=== PATIENT | female | born 1935 | race Caucasian/White ===

== ENCOUNTER 2017-07-15 13:31 | Observation (INO) ==
--- NOTE | 2017-07-15 14:47 | Emergency Department Note ---
Disposition Clinical Impression: Numbness and tingling Disposition: Admitted As Inpatient Condition: Good Time of Disposition: 18:59 Neuro HPI - General Chief Complaint: ED Neuro Symptoms/Deficit Stated Complaint: NUMBNESS Time Seen by Provider: 07/15/17 13:44 Source: patient Mode of arrival: wheelchair Limitations: no limitations Nursing Notes Reviewed: Yes Vital Signs Reviewed: Yes - History of Present Illness HPI Narrative: [age] female presents ED after 2 and half hours of progressive numbness on the right side. States began around started in her right hand and progressed upper right arm; then began progressing from right foot up to write I now includes perioral numbness. Denies any lateralizing weakness. Patient denies any headache, visual disturbances, difficulty finding words, slurred speech, chest pain, palpitations, shortness of air, nausea, vomiting, diaphoresis, or leg edema. Grandson is present and denies that patient is having any confusion in this timeframe. Pertinent history includes atrial fibrillation which is paced and for which patient takes clopidogrel 75 mg. 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 - Related Data Home Medications: Home Medications Medication Instructions Recorded Confirmed Clopidogrel [Plavix] 75 mg PO DAILY 01/12/16 07/15/17 Digoxin [Lanoxin] 0.125 mg PO DAILY 01/12/16 07/15/17 Gemfibrozil [Lopid] 600 mg PO BID 01/12/16 07/15/17 Levothyroxine [Synthroid] 88 mcg PO DAILY 01/12/16 07/15/17 Metoprolol Tartrate [Lopressor] 50 mg PO BID 01/12/16 07/15/17 carBAMazepine [Tegretol] 200 mg PO BID 01/12/16 07/15/17 Cholecalciferol (D-3) [Vitamin D] 1,000 unit PO DAILY 08/10/16 07/15/17 Multivit-Min/Folic Acid/Vit K1 1 each PO DAILY 08/10/16 07/15/17 [Multi For Her 50 Plus Softgel] Simvastatin [Zocor] 40 mg PO HS 08/10/16 07/15/17 Fenofibrate Nanocrystallized 160 mg PO QAM 07/15/17 07/15/17 [Triglide] Fluticasone Propionate Nasal 50 mcg NS DAILY PRN 07/15/17 07/15/17 [Flonase] Allergies/Adverse Reactions: Allergies Allergy/AdvReac Type Severity Reaction Status Date / Time phenytoin [From Dilantin] Allergy Hives Verified 05/25/15 09:55 Sulfa (Sulfonamide Allergy Hives Verified 05/25/15 09:55 Antibiotics) vancomycin Allergy Hives Verified 05/25/15 09:55 Amoxicillin AdvReac Hives Verified 05/02/17 08:01 Review of Systems: As Per HPI Past Medical History - Past Medical History Attestation: Yes The following information was validated with the patient. Medical history: Reports: atrial fibrillation, cancer, COPD, coronary artery disease, GERD, hyperlipidemia, hypertension, thyroid disease, other Surgical history: Reports: coronary bypass (CABG), pacemaker/AICD, thyroidectomy Psychiatric history: Reports: no psych history - Social History Smoking Status: Never smoker Smokeless Tobacco Status: No Alcohol use: Reports: none Drug use: Reports: none Physical Exam - General Limitations: no limitations General appearance: alert, in no apparent distress - Head Head exam: atraumatic, normocephalic - Eye Eye exam: Present: PERRL, EOMI. Absent: scleral icterus, conjunctival injection - ENT ENT exam: mucous membranes moist - Respiratory Respiratory exam: Present: normal lung sounds bilaterally - Cardiovascular Cardiovascular exam: Present: regular rate, normal rhythm, normal heart sounds. Absent: systolic murmur, diastolic murmur, +S3, +S4 - Abdominal Exam Abdominal exam: Present: soft, Non-Tender - Extremities Exam Extremities exam: Present: full ROM, normal capillary refill. Absent: pedal edema, calf tenderness - Expanded Lower Extremity Exam Neurovascular/Tendon exam: Present: normal capillary refill, other (Stated abnormal sensation; able to feel light touch bilaterally). Absent: pulse deficit, motor deficit, extremity cold to touch, pallor Gait: observed and normal - Neurological Exam Neurological exam: Present: alert, oriented X3, CN II-XII intact, normal gait, reflexes normal, other (Negative Romberg, negative fingerknowsfinger, negative heel-callahan) - Expanded Neurological Exam Patient oriented to: Present: person, place, time Speech: Present: fluid speech Cranial nerves: EOM function (II, III, IV, ): Normal, facial sensation (V): Normal, facial palsy (VII): Normal, spinal accessory function (XI): Normal, tongue deviation (XII): Normal Cerebellar function: finger to nose: Normal, heel to callahan: Normal Cerebellar function: normal gait, Romberg normal Motor strength - LUE: 5/5 Motor strength - RUE: 5/5 Motor strength - LLE: 5/5 Motor strength - RLE: 5/5 Sensory exam upper extremity: light touch: Normal Sensory exam lower extremity: light touch: Normal DTR: patellar (L): 0, patellar (R): 0 - Psychiatric Psychiatric exam: Present: normal affect - Skin Skin exam: Present: warm, dry, intact. Absent: cyanosis, diaphoresis, erythema , pallor, mottled Course Course Narrative: Symptoms did not develop over the time course of ED stay. Head CT negative. No pertinent lab abnormalities. Spoke with on-call hospitalist regarding admission, observation, and neurologic consult for this patient; patient's family is uncomfortable with observing her on outpatient basis and would be much more at ease with overnight observation. Dr. Carrillo accepts patient and requests the patient be given a single 325 mg dose of aspirin prior to transfer. Vital Signs Temperature 98.9 F 07/15/17 13:32 Pulse Rate 90 07/15/17 13:32 Respiratory Rate 22 07/15/17 13:32 Blood Pressure 154/65 07/15/17 13:32 O2 Sat by Pulse Oximetry 96 07/15/17 13:32 Temperature 97.7 F 07/17/17 04:00 Pulse Rate 61 07/17/17 07:00 Respiratory Rate 17 07/17/17 07:00 Blood Pressure 123/56 07/17/17 07:00 O2 Sat by Pulse Oximetry 96 07/17/17 07:00 Oxygen Delivery Oxygen Delivery Room Air Neuro Symptoms/Deficit - MDM Narrative Medical decision making narrative: UNresolving lateralizing paresthesias associated with perioral numbness. No abnormalities elicited on head CT or laboratory tests. Patient would benefit from neurologic evaluation, and coupled with family's discomfort with taking patient home, will admit hospitalist service for observation with neurologic consult. - Lab Data Lab results reviewed: Yes I reviewed the patient's lab results. Lab results narrative: Laboratory Last Values VBG pH 7.41 pH Units (7.32-7.42) 07/15/17 17:05 VBG pCO2 40 mmHg (41-51) L 07/15/17 17:05 VBG pO2 95 mmHg (25-50) H 07/15/17 17:05 VBG HCO3 25 mEq/L (21-27) 07/15/17 17:05 Sodium 142 mEq/L (136-145) 07/15/17 15:29 Potassium 3.9 mEq/L (3.5-4.5) 07/15/17 15:29 Chloride 108 mEq/L (98-109) 07/15/17 15:29 Carbon Dioxide 25 mEq/L (19-29) 07/15/17 15:29 BUN 22 mg/dL (7-20) H 07/15/17 15:29 Creatinine 0.75 mg/dL (0.57-1.11) 07/15/17 15:29 Est GFR ( Amer) > 60 (> 60) 07/15/17 15:29 Est GFR (Non-Af Amer) > 60 (> 60) 07/15/17 15:29 BUN/Creatinine Ratio 29 (6-26) H 07/15/17 15:29 Glucose 129 mg/dL (70-99) H 07/15/17 15:29 Calculated Osmolality 299 (280-300) 07/15/17 15:29 Calcium 9.6 mg/dL (8.6-10.8) 07/15/17 15:29 Troponin I 0.02 ng/mL (0-0.03) 07/15/17 16:36 Digoxin 0.6 ng/mL (0.8-2.0) L 07/15/17 15:29 Carbamazepine 8.7 mcg/mL (4.0-12.0) 07/15/17 15:29 Result diagrams: 07/17/17 05:28 07/16/17 05:06 Lab Results 07/15/17 07/15/17 07/15/17 Range/Units 13:41 15:29 16:36 VBG pH (7.32-7.42) pH Units VBG pCO2 (41-51) mmHg VBG pO2 (25-50) mmHg VBG HCO3 (21-27) mEq/L Sodium 142 (136-145) mEq/L Potassium 3.9 (3.5-4.5) mEq/L Chloride 108 (98-109) mEq/L Carbon Dioxide 25 (19-29) mEq/L BUN 22 H (7-20) mg/dL Creatinine 0.75 (0.57-1.11) mg/dL Est GFR ( Amer) > 60 (> 60) Est GFR (Non-Af Amer) > 60 (> 60) BUN/Creatinine Ratio 29 H (6-26) Glucose 129 H (70-99) mg/dL POC Glucose 188 H (58-89) Calculated Osmolality 299 (280-300) Calcium 9.6 (8.6-10.8) mg/dL Troponin I 0.02 (0-0.03) ng/mL Digoxin 0.6 L (0.8-2.0) ng/mL Carbamazepine 8.7 (4.0-12.0) mcg/mL 07/15/17 Range/Units 17:05 VBG pH 7.41 (7.32-7.42) pH Units VBG pCO2 40 L (41-51) mmHg VBG pO2 95 H (25-50) mmHg VBG HCO3 25 (21-27) mEq/L Sodium (136-145) mEq/L Potassium (3.5-4.5) mEq/L Chloride (98-109) mEq/L Carbon Dioxide (19-29) mEq/L BUN (7-20) mg/dL Creatinine (0.57-1.11) mg/dL Est GFR ( Amer) (> 60) Est GFR (Non-Af Amer) (> 60) BUN/Creatinine Ratio (6-26) Glucose (70-99) mg/dL POC Glucose (58-89) Calculated Osmolality (280-300) Calcium (8.6-10.8) mg/dL Troponin I (0-0.03) ng/mL Digoxin (0.8-2.0) ng/mL Carbamazepine (4.0-12.0) mcg/mL - Radiology Data Radiology results reviewed: Yes I reviewed the patient's radiology results. Head CT 07/15/17 16:21 IMPRESSION: No acute intracranial abnormality. D/ / Jordan Mathur MD / Jordan Mathur MD Interpreting Provider: Jordan Mathur MD Attestation Statement - Attestation Attestation: I examined this patient and my medical decision-making was reviewed with the Resident Physician. I agree with the documented findings, disposition and treatment plan as described except to the extent set forth below. 6 hours of persistent right-sided paresthesias in the arm and leg with associated perioral paresthesias. Suspicion for stroke is low. NIH is 0. However, given her age and the persistence of symptoms, I would prefer to do an MRI to rule out stroke. However, given her pacemaker, this is not possible. CT is unremarkable. I think that admission for observation, neurologic evaluation, and possible repeat CT to rule out an evolving infarction is reasonable.
[2017-07-15 15:53] LABS: BUN/Creatinine Ratio 29 (6-26); Blood Urea Nitrogen 22 mg/dL (7-20); Calcium 9.6 mg/dL (8.6-10.8); Carbon Dioxide 25 mEq/L (19-29); Chloride 108 mEq/L (98-109); Glucose 129 mg/dL (70-99); Osmolality,Calculated 299 (280-300); Potassium 3.9 mEq/L (3.5-4.5); Sodium 142 mEq/L (136-145); eGFR For African Americans > 60 (> 60); eGFR For Non-African Americans > 60 (> 60)
[2017-07-15 16:01] LABS: Digoxin 0.6 ng/mL (0.8-2.0)
[2017-07-15 17:14] LABS: VBG HCO3 25 mEq/L (21-27); VBG PCO2 40 mmHg (41-51); VBG PH 7.41 pH Units (7.32-7.42); VBG PO2 95 mmHg (25-50)
[2017-07-15 17:53] LABS: Carbamazepine (Tegretol) 8.7 mcg/mL (4.0-12.0)
[2017-07-15] MEDS ORDERED: Aspirin 325 MG TABLET PO ONE (18:52)
[2017-07-15] MEDS ORDERED: Naloxone 0.4 MG/ML INJ IVP PRN (19:40)
[2017-07-15 20:46] LABS: Basophils % 0.5 %; Eosinophils # 0.1 K/mcL (0.0-0.6); Eosinophils % 3.3 %; Hematocrit 35.7 % (35.3-44.9); Immature Granulocytes % 0.2 % (0-4); Lymphocytes # 1.2 K/mcL (0.6-4.6); Lymphocytes % 28.8 %; Mean Corpuscular HGB Conc 33.6 g/dL (31.6-35.5); Mean Corpuscular Hemoglobin 31.2 pg (28.0-33.3); Mean Corpuscular Volume 92.7 fL (83.0-100.0); Mean Platelet Volume 9.6 fL (9.4-12.4); Monocytes # 0.4 K/mcL (0.0-1.3); Neutrophils # 2.5 K/mcL (1.6-8.9); Platelet Count 136 K/mcL (140-400); Red Blood Count 3.85 M/mcL (3.82-4.97); Red Cell Distribution Width 13.2 % (11.5-14.5); Segmented Neutrophils % 58.2 %
[2017-07-15] MEDS: CarBAMazepine 100 MG TABLET PO SCH (20:47)
--- NOTE | 2017-07-15 20:51 | Internal Med History&Physical ---
<Ashley Ross M - Last Filed: 07/15/17 20:24> Date of Encounter: 07/15/17 Time of Encounter: 20:24 Assessment and Plan (1) Paresthesia Current visit: Yes Status: Acute Patient reporting numbness and tingling on right side of body and face since 11am this morning. CT of head shows no acute intracranial abnormality. She has equal strength bilaterally, sensation to light touch and temperature bilaterally. Cranial nerves intact. No facial droop, slurred speech or pronator drift. Patient at risk for CVA given history of afib, but she is not on anticoagulation due to history of intracranial bleed and GI bleed. 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 (2) Coronary artery disease Current visit: Yes Status: Chronic Patient with CAD s/p CABG. She had a Cardiac cath 05/02/2017 which showed severe 2 vessel CAD, LVEF of 55%, mid apical hypertrophic cardiomyopathy, 1 of 3 patent bypas grafts and recommended optimizing medical therapy. Troponin today is 0.02. EKG shows ventricular paced rhythm. Continue home doses of metoprolol, zocor and plavix. Qualifiers: Coronary Disease-Associated Artery/Lesion type: [place] artery [place] vs. transplanted heart: sy[place] heart Associated angina: without angina Qualified Code(s): I25.10 - Atherosclerotic heart disease of [place] coronary artery without angina pectoris (3) Seizure disorder Current visit: Yes Status: Chronic Patient denies any recent seizure activity. Continue home dose of Carbamazepine. (4) Afib Current visit: Yes Status: Acute Patient has history of afib, is not on any anti-coagulation due to previous non- traumatic intracranial bleed and GI bleed. She is on metoprolol and digoxin. She has a pacemaker and EKG shows ventricular paced rhythm. Continue home doses of metoprolol and digoxin. Qualifiers: Atrial fibrillation type: unspecified Qualified Code(s): I48.91 - Unspecified atrial fibrillation (5) DVT prophylaxis Current visit: Yes Status: Acute anti-embolic stockings Heparin SQ Q12hr Internal Medicine - H&P: HPI Chief complaint: right sided numbness Admitted From: Emergency Dept Plans for Post Hospital Care: Home History of present illness: Ms. Shultz is a 82 year old female with hypertension, hyperlipidemia, seizure disorder, coronary artery disease status post CABG, atrial fibrillation not on anticoagulation due to previous intracranial hemorrhage and GI bleeding, pacemaker placement presented to the emergency department today with complaints of right-sided tingling and facial numbness. Patient reports she first noted that her right hand had redness and tingling at 11 am today. She reports the tingling spread up her right arm and then she noticed in her leg and face. She does not endorse weakness, she denies any slurred speech or trouble swallowing. She reports occasional lightheadedness, but states this is baseline for her. She also reports occasional trouble with balance at baseline. She reports mild headache. She denies any chest pain, palpitatations, nausea, vomiting, abdominal pain, fever chills or sweats. Evaluation in the ED included a Head CT which showed no acute intracranial abnormality. Troponin was normal at 0.02. EKG showed ventricular paced rhythm. Patient was given 325mg of aspirin. On exam, patient was alert and oriented, in no acute distress. She had equal strength bilaterally, cranial nerves in tact. She had intact sensation and movement bilaterally. Her right hand was mottled. Heart had regular rate and rhythm, lungs were clear bilaterally. Abdomen soft, non-tender, positive bowel sounds. No peripheral edema. Past Med Surg Social Fam HX - Past Medical History Medical history: atrial fibrillation, cancer, COPD, coronary artery disease, GERD, hyperlipidemia, hypertension, thyroid disease, other Psychiatric history: no psych history - Past Surgical History Surgical History: angioplasty/stent, appendectomy, coronary bypass (CABG), pacemaker/AICD, thyroidectomy - Social History Smoking Status: Former smoker (40 year pack history) Smokeless Tobacco Status: No Alcohol use: none Drug use: none - Family History Mother Hx Family Cardiac Disorders: Yes (CAD, Bypass, HTN, NC) Hx Family Respiratory Disorders: No Hx Family Cancer: No Hx Family GI Disorders: No Hx Family Endocrine Disorder: No Hx Family Neuromuscular Disorders: No Hx Family Neurologic Disorders: Yes (Dementia) Hx Family HEENT Disorders: No Hx Family Autoimmune Disorders: No Brother Living Status: Still Living Hx Family Cardiac Disorders: Yes Son Living Status: Still Living Hx Family Cardiac Disorders: Yes Internal Medicine - H&P: Meds Clopidogrel [Plavix] 75 mg PO DAILY 01/12/16 [History] Digoxin [Lanoxin] 0.125 mg PO DAILY 01/12/16 [History] Gemfibrozil [Lopid] 600 mg PO BID 01/12/16 [History] Levothyroxine [Synthroid] 88 mcg PO DAILY 01/12/16 [History] Metoprolol Tartrate [Lopressor] 50 mg PO BID 01/12/16 [History] carBAMazepine [Tegretol] 200 mg PO BID 01/12/16 [History] Cholecalciferol (D-3) [Vitamin D] 1,000 unit PO DAILY 08/10/16 [History] Multivit-Min/Folic Acid/Vit K1 [Multi For Her 50 Plus Softgel] 1 each PO DAILY 08/10/16 [History] Simvastatin [Zocor] 40 mg PO HS 08/10/16 [History] Fenofibrate Nanocrystallized [Triglide] 160 mg PO QAM 07/15/17 [History] Fluticasone Propionate Nasal [Flonase] 50 mcg NS DAILY PRN 07/15/17 [History] 3 Allergy/AdvReac Type Severity Reaction Status Date / Time phenytoin [From Dilantin] Allergy Hives Verified 05/25/15 09:55 Sulfa (Sulfonamide Allergy Hives Verified 05/25/15 09:55 Antibiotics) vancomycin Allergy Hives Verified 05/25/15 09:55 Amoxicillin AdvReac Hives Verified 05/02/17 08:01 All Systems PM: A 10-system review of systems was performed and is negative for pertinent findings except as documented above in the HPI. - Constitutional Constitutional: no chills, no fever(s), no night sweats - EENT Eyes: no change in vision, no discharge, no pain, no photophobia Ears: no ear discharge, no ear pain, no tinnitus Nose, mouth and throat: no dysphagia, no nasal discharge, no neck pain, no sore throat - Cardiovascular Cardiovascular ROS IM: no chest pain, no diaphoresis, no dyspnea, no lightheadedness, no palpitations, no syncope - Respiratory Respiratory: no cough, no dyspnea, no wheezing, no excessive phlegm production - Gastrointestinal Gastrointestinal: no abdominal pain, no diarrhea, no hematemesis, no hematochezia, no melena, no nausea, no vomiting - Genitourinary Genitourinary: no change in urinary stream, no dysuria, no flank pain, no hematuria - Musculoskeletal Musculoskeletal ROS IM: tingling (right arm, right leg and face. ), no numbness - Integumentary Integumentary IM: no rash, no unusual bruising - Neurological Neurological ROS: paresthesias, tingling (right arm, right leg and face.), no confusion, no convulsions, no focal weakness, no numbness, no tremor(s) - Hematologic/Lymphatic Hematologic/Lymphatic: no easy bruising - Constitutional Vitals: Temp Pulse Resp BP Pulse Ox 98.9 F 83 18 130/69 96 07/15/17 13:32 07/15/17 17:49 07/15/17 17:49 07/15/17 17:49 07/15/17 17:49 General appearance: Present: A&O X 3, pleasant, no acute distress - Head Head exam: Present: atraumatic, normocephalic - Eye Eye exam: Present: PERRL, conjuntiva pink, sclera anicteric Pupils: Present: PERRL - Neck Neck exam general surgery: Present: supple, trachea midline. Absent: lymphadenopathy - Respiratory Respiratory exam: Present: CTAB. Absent: accessory muscle use, rales, rhonchi, wheezes - Cardiovascular Cardiovascular exam: Present: RRR, +S1, +S2. Absent: diastolic murmur, gallop, rubs, systolic murmur - GI/Abdominal GI/Abdominal exam: Present: normal bowel sounds, soft, no peritoneal signs. Absent: distended, tenderness - Extremities Exam Extremities exam: Present: warm, radial pulses palpable and symmetrical. Absent : calf tenderness, cyanotic, pedal edema - Neurological Exam Neurological exam: Present: CN II-XII intact, oriented X3, no focal deficits. Absent: pronater drift, facial droop, speech deficit - Expanded Neurological Exam Speech: Present: fluid speech Cranial Nerves: EOM's intact PM: Normal, gag reflex PM: Normal, nystagmus PM: Normal, tongue deviation PM: Normal Upper motor neuron: Usman neglect: Normal, pronator drift: Normal Sensory exam: lower extremity light touch: Normal, lower extremity temperature: Normal, upper extremity light touch: Normal, upper extremity temperature: Normal Neuro motor strength exam: LUE: 5, RUE: 5, LLE: 5, RLE: 5 - Skin Skin exam: Present: dry, intact, mottled (right hand) Internal Med - H&P Results - Labs CBC & Chem 7: 07/15/17 15:29 Labs: All Lab Results (24 Hours) 07/15/17 07/15/17 07/15/17 Range/Units 15:29 16:36 17:05 WBC (4.3-11.1) K/mcL RBC (3.82-4.97) M/mcL Hgb (11.5-15.4) g/dL Hct (35.3-44.9) % MCV (83.0-100.0) fL MCH (28.0-33.3) pg MCHC (31.6-35.5) g/dL RDW (11.5-14.5) % Plt Count (140-400) K/mcL MPV (9.4-12.4) fL Immature Gran % (0-4) % Seg Neutrophils % % Lymphocytes % % Monocytes % % Eosinophils % % Basophils % % Neutrophils # (1.6-8.9) K/mcL Lymphocytes # (0.6-4.6) K/mcL Monocytes # (0.0-1.3) K/mcL Eosinophils # (0.0-0.6) K/mcL Basophils # (0.0-0.2) K/mcL VBG pH 7.41 (7.32-7.42) pH Units VBG pCO2 40 L (41-51) mmHg VBG pO2 95 H (25-50) mmHg VBG HCO3 25 (21-27) mEq/L Sodium 142 (136-145) mEq/L Potassium 3.9 (3.5-4.5) mEq/L Chloride 108 (98-109) mEq/L Carbon Dioxide 25 (19-29) mEq/L BUN 22 H (7-20) mg/dL Creatinine 0.75 (0.57-1.11) mg/dL Est GFR ( Amer) > 60 (> 60) Est GFR (Non-Af Amer) > 60 (> 60) BUN/Creatinine Ratio 29 H (6-26) Glucose 129 H (70-99) mg/dL Calculated Osmolality 299 (280-300) Calcium 9.6 (8.6-10.8) mg/dL Troponin I 0.02 (0-0.03) ng/mL Digoxin 0.6 L (0.8-2.0) ng/mL Carbamazepine 8.7 (4.0-12.0) mcg/mL 07/15/17 Range/Units 20:02 WBC 4.2 L (4.3-11.1) K/mcL RBC 3.85 (3.82-4.97) M/mcL Hgb 12.0 (11.5-15.4) g/dL Hct 35.7 (35.3-44.9) % MCV 92.7 (83.0-100.0) fL MCH 31.2 (28.0-33.3) pg MCHC 33.6 (31.6-35.5) g/dL RDW 13.2 (11.5-14.5) % Plt Count 136 L (140-400) K/mcL MPV 9.6 (9.4-12.4) fL Immature Gran % 0.2 (0-4) % Seg Neutrophils % 58.2 % Lymphocytes % 28.8 % Monocytes % 9.0 % Eosinophils % 3.3 % Basophils % 0.5 % Neutrophils # 2.5 (1.6-8.9) K/mcL Lymphocytes # 1.2 (0.6-4.6) K/mcL Monocytes # 0.4 (0.0-1.3) K/mcL Eosinophils # 0.1 (0.0-0.6) K/mcL Basophils # 0.0 (0.0-0.2) K/mcL VBG pH (7.32-7.42) pH Units VBG pCO2 (41-51) mmHg VBG pO2 (25-50) mmHg VBG HCO3 (21-27) mEq/L Sodium (136-145) mEq/L Potassium (3.5-4.5) mEq/L Chloride (98-109) mEq/L Carbon Dioxide (19-29) mEq/L BUN (7-20) mg/dL Creatinine (0.57-1.11) mg/dL Est GFR ( Amer) (> 60) Est GFR (Non-Af Amer) (> 60) BUN/Creatinine Ratio (6-26) Glucose (70-99) mg/dL Calculated Osmolality (280-300) Calcium (8.6-10.8) mg/dL Troponin I (0-0.03) ng/mL Digoxin (0.8-2.0) ng/mL Carbamazepine (4.0-12.0) mcg/mL - Diagnostic Studies CT scan - head Additional comments: Head CT 07/15/17 16:21 IMPRESSION: No acute intracranial abnormality. D/ / Jordan Mathur MD / Jordan Mathur MD Interpreting Provider: Jordan Mathur MD <Ambrosio Adams - Last Filed: 07/16/17 00:41> Date of Encounter: 07/15/17 Time of Encounter: 23:05 - Constitutional Vitals: Temp Pulse Resp BP Pulse Ox 97.9 F 94 19 167/86 95 07/15/17 19:59 07/15/17 19:59 07/15/17 19:59 07/15/17 19:59 07/15/17 20:59 General appearance: Present: A&O X 3, no acute distress - Head Head exam: Present: normal inspection - Eye Eye exam: Present: EOMI, PERRL. Absent: scleral icterus - ENT ENT exam: Present: mucous membranes moist, normal exam - Neck Neck exam general surgery: Present: full ROM, supple - Expanded Neck Exam Neck exam: Absent: carotid bruit - Respiratory Respiratory exam: Present: CTAB. Absent: rales, rhonchi, wheezes - Cardiovascular Cardiovascular exam: Present: RRR, +S1, +S2. Absent: diastolic murmur, systolic murmur - GI/Abdominal GI/Abdominal exam: Present: soft. Absent: tenderness - Extremities Exam Extremities exam: Present: full ROM, normal capillary refill, warm, radial pulses palpable and symmetrical. Absent: calf tenderness - Back Exam Back exam: Absent: CVA tenderness (L), CVA tenderness (R) - Neurological Exam Neurological exam: Present: alert, CN II-XII intact, oriented X3, no focal deficits, strengths equal and symetr throughout - Psychiatric Psychiatric exam: Present: normal affect, normal mood - Skin Skin exam: Present: dry, petechiae (right hand; no mottling; warm; non-tender; equal/strong radial pulses in both hands), warm. Absent: mottled Internal Med - H&P Results - Labs CBC & Chem 7: 07/15/17 20:02 07/15/17 15:29 Labs: Short CBC 07/15/17 Range/Units 20:02 WBC 4.2 L (4.3-11.1) K/mcL Hgb 12.0 (11.5-15.4) g/dL Hct 35.7 (35.3-44.9) % Plt Count 136 L (140-400) K/mcL Neutrophils # 2.5 (1.6-8.9) K/mcL - EKG Data -: EKG Interpreted by Myself - EKG Data EKG comments: 07/16/17 00:34 Ventricular paced rhythm - Attending Attestation I discussed the patient [place], PMH, ROS, lab data, and exam findings with Ashley Ross CNP. I then saw and examined patient independently as well. Patient exhibits no deficits now other than some parasthesias to her RUE and RLE. No numbness or weakness. Her right hand is not mottled, but it has petechiae in a gloved pattern in her right hand only. She has equal pulses in both hands which are strong. 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 She denies any trauma to her hand. I discussed with patient and her daughter the planned work-up and consult with neurology. Unfortunately, she has a history of intracranial bleed on Coumadin in the past and history of GI bleed. Patient on Plavix now. She would likely benefit from aspirin. However , patient and family would like to discuss with Neurolgoy first before considering dual anti-platelet therapy. Other than my comments above and noted exam findings, I agree with Ashley's assessment and plan.
[2017-07-15] MEDS ORDERED: Melatonin 3 MG TABLET PO STA (22:31)
[2017-07-16] MEDS: *HR* Heparin 5,000 UNIT/ML VIAL SQ SCH ×2 (05:31→18:26)
[2017-07-16 05:56] LABS: Basophils % 0.3 %; Eosinophils # 0.2 K/mcL (0.0-0.6); Eosinophils % 4.6 %; Hematocrit 33.4 % (35.3-44.9); Hemoglobin 11.5 g/dL (11.5-15.4); Immature Granulocytes % 0.3 % (0-4); Lymphocytes # 1.1 K/mcL (0.6-4.6); Lymphocytes % 30.2 %; Mean Corpuscular HGB Conc 34.4 g/dL (31.6-35.5); Mean Corpuscular Hemoglobin 31.4 pg (28.0-33.3); Mean Corpuscular Volume 91.3 fL (83.0-100.0); Mean Platelet Volume 9.6 fL (9.4-12.4); Monocytes # 0.4 K/mcL (0.0-1.3); Monocytes % 11.1 %; Platelet Count 120 K/mcL (140-400); Red Blood Count 3.66 M/mcL (3.82-4.97); Red Cell Distribution Width 13.2 % (11.5-14.5); Segmented Neutrophils % 53.5 %
[2017-07-16 06:10] LABS: BUN/Creatinine Ratio 25 (6-26); Blood Urea Nitrogen 19 mg/dL (7-20); Calcium 9.5 mg/dL (8.6-10.8); Carbon Dioxide 22 mEq/L (19-29); Chloride 109 mEq/L (98-109); Chol/HDL Ratio 6.7 (0-4.9); Cholesterol 213 mg/dL (< 200); Glucose 130 mg/dL (70-99); HDL Cholesterol 32 mg/dL (40-59); LDL Cholesterol,Calculated 119 mg/dL (0-99); Osmolality,Calculated 296 (280-300); Sodium 141 mEq/L (136-145); Triglycerides 312 mg/dL (< 150); eGFR For African Americans > 60 (> 60); eGFR For Non-African Americans > 60 (> 60)
--- NOTE | 2017-07-16 08:11 | Internal Med Progress Note ---
<Andrez Capps P - Last Filed: 07/16/17 14:15> Date of Encounter: 07/16/17 - Constitutional Vitals: Temp Pulse Resp BP Pulse Ox 97.4 F L 95 20 137/83 96 07/16/17 11:41 07/16/17 11:41 07/16/17 11:41 07/16/17 11:41 07/16/17 11:41 Internal Medicine: Result - Labs CBC & Chem 7: 07/16/17 05:06 07/16/17 05:06 Labs: Short CBC 07/15/17 07/16/17 Range/Units 20:02 05:06 WBC 4.2 L 3.7 L (4.3-11.1) K/mcL Hgb 12.0 11.5 (11.5-15.4) g/dL Hct 35.7 33.4 L (35.3-44.9) % Plt Count 136 L 120 L (140-400) K/mcL Neutrophils # 2.5 2.0 (1.6-8.9) K/mcL BMP 07/16/17 05:06 Sodium 141 Potassium 4.0 Chloride 109 Carbon Dioxide 22 BUN 19 Creatinine 0.75 Glucose 130 H Calcium 9.5 - Impressions Impressions Echocardiogram 07/15/17 20:23 Impressions: LVEF 60-65%. Normal LV chamber size and function. 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 Atypical septal motion consistent with post-operative status/paced rhythm. Indeterminate diastolic function. Normal right ventricular structure and function. No evidence of PFO with agitated saline contrast. Mild pulmonary hypertension. Estimated RVSP is 37 mmHg. A device lead was visualized in the right atrium and right ventricle. Left Ventricular Wall Motion: Rest Echo Findings All wall segments showed normal motion. Findings: Study Quality * Technically adequate exam. ECG Findings * Paced rhythm. Left Ventricle * LVEF 60-65%. * Normal LV chamber size and function. 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 * Atypical septal motion consistent with post-operative status/paced rhythm. * Indeterminate diastolic function. Right Ventricle * Normal right ventricular structure and function. Left Atrium * Mildly dilated left atrium. Right Atrium * Normal right atrial size. Interatrial Septum * No evidence of PFO with agitated saline contrast. Aortic Valve * Aortic valve not well visualized. Grossly appeared to be trileaflet. * No aortic stenosis. * No aortic regurgitation. Mitral Valve * Normal mitral valve structure and function. * No mitral stenosis. * Trace mitral regurgitation. Tricuspid Valve * Normal tricuspid valve structure and function. * Trace tricuspid regurgitation. * Mild pulmonary hypertension. * Estimated RVSP is 44 mmHg. * Estimated RA pressure is 5 mmHg. Pulmonic Valve * Pulmonic valve is not well visualized. * No pulmonic regurgitation. Aorta * Normally sized aortic root. Pericardium * The pericardium appears normal. IVC * Normal IVC dimensions and inspiratory collapse. Device lead * A device lead was visualized in the right atrium and right ventricle. Pulmonary Artery * Normal visualized portions of the main pulmonary artery. Consult Discharge Plan - Plan Referrals: Kerry Ordaz LEGAL INSTRUMENTS EXAMINER [Primary Care Provider] - - Attending Attestation I examined this patient and my medical decision-making was reviewed with the Resident Physician. I agree with the documented findings, disposition and treatment plan as described except to the extent set forth below. Agency and examined. Chart reviewed. We will follow the recommendations from neurology. <Jailene Stallings - Last Filed: 07/16/17 16:42> Date of Encounter: 07/16/17 Time of Encounter: 09:49 - Assessment and plan (1) Paresthesia Current Visit: Yes Status: Acute Assessment and plan: Paresthesias of right arm, right leg, and right side of face Neurology consult, appreciate recommendations A. fib not on anticoagulation due to history of bleed (2) Coronary artery disease Current Visit: Yes Status: Chronic Assessment and plan: CAD s/p CABG Cardiac cath 05/02/2017 showed severe 2 vessel CAD, LVEF of 55%, mid apical hypertrophic cardiomyopathy, 1 of 3 patent bypas grafts and recommended optimizing medical therapy. Admission EKG showed ventricular paced rhythm. Continue home metoprolol, zocor and plavix. Qualifiers: Coronary Disease-Associated Artery/Lesion type: [place] artery [place] vs. transplanted heart: [place] heart Associated angina: without angina Qualified Code(s): I25.10 - Atherosclerotic heart disease of [place] coronary artery without angina pectoris (3) Afib Current Visit: Yes Status: Acute Assessment and plan: Continue home metoprolol and digoxin. Not on anticoagulation due to history of GI bleed and intracranial bleed. Qualifiers: Atrial fibrillation type: unspecified Qualified Code(s): I48.91 - Unspecified atrial fibrillation (4) Seizure disorder Current Visit: Yes Status: Chronic Assessment and plan: Continue home carbamazepine (5) DVT prophylaxis Current Visit: Yes Status: Acute Assessment and plan: SQ heparin - Subjective Interval history: Patient states that the numbness in her arm and leg are annoying to her. She is hungry this morning and has not been fed breakfast due to being nothing by mouth. - Constitutional Vitals: Temp Pulse Resp BP Pulse Ox 98.1 F 63 12 114/51 95 07/16/17 06:53 07/16/17 06:53 07/16/17 06:53 07/16/17 06:53 07/16/17 06:53 General appearance: Present: A&O X 3, no acute distress, answers questions appropriately - Head Head exam: Present: atraumatic, normocephalic - Eye Eye exam: Present: PERRL, conjuntiva pink, sclera anicteric Pupils: Present: PERRL - Neck Neck exam general surgery: Present: supple, trachea midline - Respiratory Respiratory exam: Present: CTAB. Absent: accessory muscle use, rales, rhonchi, wheezes - Cardiovascular Cardiovascular exam: Present: RRR, +S1, +S2. Absent: systolic murmur - GI/Abdominal GI/Abdominal exam: Present: normal bowel sounds, soft, no peritoneal signs. Absent: distended, tenderness - Extremities Exam Extremities exam: Present: mottling (right hand), warm, radial pulses palpable and symmetrical. Absent: pedal edema - Neurological Exam Neurological exam: Present: alert, CN II-XII intact, oriented X3. Absent: pronater drift, facial droop, speech deficit Additional comments: Patient reports numbness of her right arm (including shoulder) and right leg. Sensation to light touch is intact on exam; she states " I feel that, but it is numb." Internal Medicine: Result - Labs CBC & Chem 7: 07/16/17 05:06 07/16/17 05:06 Labs: Short CBC 07/15/17 07/16/17 Range/Units 20:02 05:06 WBC 4.2 L 3.7 L (4.3-11.1) K/mcL Hgb 12.0 11.5 (11.5-15.4) g/dL Hct 35.7 33.4 L (35.3-44.9) % Plt Count 136 L 120 L (140-400) K/mcL Neutrophils # 2.5 2.0 (1.6-8.9) K/mcL BMP 07/16/17 05:06 Sodium 141 Potassium 4.0 Chloride 109 Carbon Dioxide 22 BUN 19 Creatinine 0.75 Glucose 130 H Calcium 9.5
[2017-07-16] MEDS: CarBAMazepine 100 MG TABLET PO SCH ×2 (09:52→23:17)
[2017-07-16] MEDS: Fenofibrate 54 MG TABLET PO SCH (09:52)
[2017-07-16] MEDS: *HR* Digoxin 0.125 MG TABLET PO SCH (09:52)
--- NOTE | 2017-07-16 10:14 | Neurology - Consult Note ---
<Chevy Dover - Last Filed: 07/16/17 10:06> Date of Encounter: 07/16/17 Time of Encounter: 08:45 Assessment and Plan (1) Numbness and tingling Current Visit: Yes Status: Acute Patient presents to hospital with reports of sensation deficits including numbness and tingling. No complaints of visual changes, slurred speech, or focal weakness. Neurological exam showed focal decreased sensation without other significant abnormalities. Initial CT examination patient had negative. She does have history of atrial fibrillation not currently on any anticoagulation due to previous intracranial and GI bleeding. If patient had ischemic incident, suspicion of embolic etiology due to patient history. We will obtain MRI to better visualize for acute ischemia Due to concerns of past bleeding, recommend continuing Plavix Until confirmation of stroke from MRI, allow permissive hypertension in the lower blood pressure too much History of Present Illness Chief complaint: Numbness and tingling HPI: Ms. Shultz is a 82 year old female with past medical history of atrial fibrillation (not anticoagulated because of previous intracranial and GI bleeding), pacemaker, COPD, and seizure disorder presents to [place] yesterday evening because of onset of one day of right-sided hand and facial tingling. It started earlier that day at about 11:00 in the morning have begun with tingling in her hand that spread up her right arm and involved her right face and right leg. It then advanced into a slight decrease in sensation. She denies having any weakness, visual changes, slurred speech during this time. She reports that she has had a mild headache. He felt this tingling sensation began with a "pop" in her right hand. She has no prior history of CVA but is not anticoagulated for her atrial fibrillation. Initial head CT performed yesterday afternoon was negative for acute intracranial abnormality. Past Med Surg Social Fam HX - Past Medical History Medical history: atrial fibrillation, cancer, COPD, coronary artery disease, GERD, hyperlipidemia, hypertension, thyroid disease, other Psychiatric history: no psych history - Past Surgical History Surgical History: coronary bypass (CABG), pacemaker/AICD, thyroidectomy - Social History Smoking Status: Never smoker Smokeless Tobacco Status: No Alcohol use: none Drug use: none - Family History Brother Living Status: Still Living Hx Family Cardiac Disorders: Yes Son Living Status: Still Living Hx Family Cardiac Disorders: Yes Mother Hx Family Cardiac Disorders: Yes (CAD, Bypass, HTN, [place]) Hx Family Respiratory Disorders: No Hx Family Cancer: No Hx Family GI Disorders: No Hx Family Endocrine Disorder: No Hx Family Neuromuscular Disorders: No Hx Family Neurologic Disorders: Yes (Dementia) Hx Family HEENT Disorders: No Hx Family Autoimmune Disorders: No Medications and Allergies Clopidogrel [Plavix] 75 mg PO DAILY 01/12/16 [History] Digoxin [Lanoxin] 0.125 mg PO DAILY 01/12/16 [History] Gemfibrozil [Lopid] 600 mg PO BID 01/12/16 [History] Levothyroxine [Synthroid] 88 mcg PO DAILY 01/12/16 [History] Metoprolol Tartrate [Lopressor] 50 mg PO BID 01/12/16 [History] carBAMazepine [Tegretol] 200 mg PO BID 01/12/16 [History] Cholecalciferol (D-3) [Vitamin D] 1,000 unit PO DAILY 08/10/16 [History] Multivit-Min/Folic Acid/Vit K1 [Multi For Her 50 Plus Softgel] 1 each PO DAILY 08/10/16 [History] Simvastatin [Zocor] 40 mg PO HS 08/10/16 [History] Fenofibrate Nanocrystallized [Triglide] 160 mg PO QAM 07/15/17 [History] Fluticasone Propionate Nasal [Flonase] 50 mcg NS DAILY PRN 07/15/17 [History] 3 Allergy/AdvReac Type Severity Reaction Status Date / Time phenytoin [From Dilantin] Allergy Hives Verified 05/25/15 09:55 Sulfa (Sulfonamide Allergy Hives Verified 05/25/15 09:55 Antibiotics) vancomycin Allergy Hives Verified 05/25/15 09:55 Amoxicillin AdvReac Hives Verified 05/02/17 08:01 Review of Systems: Gen: denies weakness, denies fatigue CV: Denies chest pain MSK: denies arthralgia, denies muscle weakness Neuro: Reports minor headache, denies confusion, denies focal weakness, reports numbness and tingling in right face, arm, and leg, denies vision changes Physical Examination - Vital Signs Vital Signs: Initial Vital Signs Temp Pulse Resp BP Pulse Ox 98.9 F 90 22 154/65 96 07/15/17 13:32 07/15/17 13:32 07/15/17 13:32 07/15/17 13:32 07/15/17 13:32 - Exam Exam: General: Cooperative, pleasant, no acute distress, alert and oriented 3, answers questions appropriately HEENT: Normocephalic, atraumatic, neck supple,Conjunctiva pink, sclera anicteric , EOMI, PERRL Extremities: No calf tenderness, noncyanotic, no pedal edema appreciated, warm, lower extremity pulses palpable and symmetrical, slight erythema noted in right hand Neurological: Alert and oriented 3, no facial droop, no focal deficits, cranial nerves II through XII show slightly decreased sensation on left side of face (to pinprick), finger to nose smooth and accurate, sensation to gross touch intact in upper and lower extremities bilaterally, decreased sensation to pinprick noted in right leg, strength 5/5 in upper and lower extremities bilaterally, DTRs 2/4 in Achilles, R patellar, brachioradialis 1/4 DTR in left patella Skin: Dry, intact, normal color Results - Laboratory Findings CBC and BMP: 07/16/17 05:06 07/16/17 05:06 Abnormal lab findings: Abnormal lab results WBC 3.7 K/mcL (4.3-11.1) L 07/16/17 05:06 RBC 3.66 M/mcL (3.82-4.97) L 07/16/17 05:06 Hct 33.4 % (35.3-44.9) L 07/16/17 05:06 Plt Count 120 K/mcL (140-400) L 07/16/17 05:06 VBG pCO2 40 mmHg (41-51) L 07/15/17 17:05 VBG pO2 95 mmHg (25-50) H 07/15/17 17:05 Glucose 130 mg/dL (70-99) H 07/16/17 05:06 POC Glucose 188 (58-89) H 07/15/17 13:41 Triglycerides 312 mg/dL (< 150) H 07/16/17 05:06 Cholesterol 213 mg/dL (< 200) H 07/16/17 05:06 LDL Cholesterol, Calc 119 mg/dL (0-99) H 07/16/17 05:06 VLDL Cholesterol, Calc 62 mg/dL (< 31) H 07/16/17 05:06 HDL Cholesterol 32 mg/dL (40-59) L 07/16/17 05:06 Cholesterol/HDL Ratio 6.7 (0-4.9) H 07/16/17 05:06 Digoxin 0.6 ng/mL (0.8-2.0) L 07/15/17 15:29 Consult Discharge Plan - Plan Referrals: Kerry Ordaz, PHARMACISTS [Primary Care Provider] - <Vicente Smith I - Last Filed: 07/16/17 13:45> Date of Encounter: 07/16/17 Assessment and Plan (1) Numbness and tingling Current Visit: Yes Status: Acute Since seen and examined with Dr. Dover documentation patient did not have any significant focal motor deficit I did have the sensory symptoms present history of multiple comorbid conditions as well as atrial fibrillation certainly she is at risk of stroke but this would even if indeed it is a new stroke is likely a lacunar infarct especially that she did not have any focal motor deficit currently she has been maintained on Plavix suggested to continue on it she did have a history of GI as well as intracranial bleed in the past and is not on anticoagulation with a history of atrial fibrillation. At this time suggested that we should follow the MRI results For any underlying infectious or metabolic abnormality continue on Plavix for now along with the statin may benefit from physical therapy and rehabilitation Vicente Smith MD History of Present Illness HPI: Ms. Shultz is a 82 year old female All Systems: A 10-system review of systems was performed and is negative for pertinent findings except as documented above in the HPI. Physical Examination - Vital Signs Vital Signs: Initial Vital Signs Temp Pulse Resp BP Pulse Ox 98.9 F 90 22 154/65 96 07/15/17 13:32 07/15/17 13:32 07/15/17 13:32 07/15/17 13:32 07/15/17 13:32 Results - Laboratory Findings CBC and BMP: 07/16/17 05:06 07/16/17 05:06 Abnormal lab findings: Abnormal lab results WBC 3.7 K/mcL (4.3-11.1) L 07/16/17 05:06 RBC 3.66 M/mcL (3.82-4.97) L 07/16/17 05:06 Hct 33.4 % (35.3-44.9) L 07/16/17 05:06 Plt Count 120 K/mcL (140-400) L 07/16/17 05:06 VBG pCO2 40 mmHg (41-51) L 07/15/17 17:05 VBG pO2 95 mmHg (25-50) H 07/15/17 17:05 Glucose 130 mg/dL (70-99) H 07/16/17 05:06 POC Glucose 188 (58-89) H 07/15/17 13:41 Triglycerides 312 mg/dL (< 150) H 07/16/17 05:06 Cholesterol 213 mg/dL (< 200) H 07/16/17 05:06 LDL Cholesterol, Calc 119 mg/dL (0-99) H 07/16/17 05:06 VLDL Cholesterol, Calc 62 mg/dL (< 31) H 07/16/17 05:06 HDL Cholesterol 32 mg/dL (40-59) L 07/16/17 05:06 Cholesterol/HDL Ratio 6.7 (0-4.9) H 07/16/17 05:06 Digoxin 0.6 ng/mL (0.8-2.0) L 07/15/17 15:29
[2017-07-16] MEDS ORDERED: Perflutren Lipid Microsphere 1.3 ML in 0.9 % Sodium Chloride 8.7 ML IVP ONE (11:03)
--- NOTE | 2017-07-16 16:39 | Electrocardiograph Report ---
[place] [address] Test Date: 2017-07-15 Pat Name: Rosa Shultz Department: 102 Room: [facility] Gender: F [employer]: : 1935 Requested By: Gordon Boss Order Number: [id number] Reading MD: Keyla Victor Measurements Intervals [place] Rate: 80 P: 88 CT: 243 QRS: -71 QRSD: 175 T: 101 QT: 427 QTc: 462 Interpretive Statements ELECTRONIC VENTRICULAR PACEMAKER ABNORMAL RHYTHM ECG Electronically Signed On 07-16-2017 16:37:45 EDT by Keyla Victor
--- NOTE | 2017-07-16 18:39 | Carotid Imaging Report ---
Carotid Duplex Patient Name:Rosa Shultz Order Number:[id number] Procedure Date:07/16/2017 Date:4Age:82 yrs Gender:Female Location:[facility] Room #: 2NE33 Voting Machine Repairer:Brandy Palma Referring MD:Ashley Ross, [employer] Reading MD:Harish Delgado MD Risk Factors Yes/No Hypertension Yes Diabetes No Hypercholesterolemia Yes Smoker Previous Yes Impressions: The right internal carotid artery has a 40-59% stenosis. The left carotid artery is normal throughout. Recommendations: Risk factor reduction. Follow-up carotid duplex in 1 year. After imaging the patient returned to their room. Findings Carotid Duplex: Right: The right proximal common carotid artery has a PSV of 73 cm/s and a EDV of 5 cm/s. The right mid common carotid artery has a PSV of 79 cm/s and a EDV of 11 cm/s. The right distal common carotid artery has a PSV of 54 cm/s and a EDV of 6 cm/s. The right bifurcation has a PSV of 51 cm/s and a EDV of 5 cm/s. The right proximal internal carotid artery has a PSV of 72 cm/s and a EDV of 8 cm/s. The right mid internal carotid artery has a PSV of 156 cm/s and a EDV of 17 cm/s. The right distal internal carotid artery has a PSV of 87 cm/s and a EDV of 15 cm/s. The right eca has a PSV of 153 cm/s and a EDV of 17 cm/s. The right vertebral artery has a PSV of 24 cm/s and a EDV of 6 cm/s. Left: The left proximal common carotid artery has a PSV of 64 cm/s and a EDV of 8 cm/s. The left mid common carotid artery has a PSV of 88 cm/s and a EDV of 6 cm/s. The left distal common carotid artery has a PSV of 70 cm/s and a EDV of 7 cm/s. The left bifurcation has a PSV of 95 cm/s and a EDV of 17 cm/s. The left proximal internal carotid artery has a PSV of 78 cm/s and a EDV of 12 cm/s. The left mid internal carotid artery has a PSV of 82 cm/s and a EDV of 12 cm/s. The left distal internal carotid artery has a PSV of 90 cm/s and a EDV of 13 cm/s. The left eca has a PSV of 77 cm/s. The left vertebral artery has a PSV of 51 cm/s and a EDV of 11 cm/s. Carotid Results Right PSV EDV Assessment Proximal CCA 73 5 Normal Mid CCA 79 11 Normal Distal CCA 54 6 Normal Bifurcation 51 5 Non Stenotic Plaque Proximal ICA 72 8 Normal Mid ICA 156 17 40-59% stenosis Distal ICA 87 15 Normal ECA 153 17 Non Stenotic Plaque Vertebral Artery 24 6 Normal Left PSV EDV Assessment Proximal CCA 64 8 Normal Mid CCA 88 6 Normal Distal CCA 70 7 Normal Bifurcation 95 17 Normal Proximal ICA 78 12 Normal Mid ICA 82 12 Normal Distal ICA 90 13 Normal ECA 77 Normal Vertebral Artery 51 11 Normal Ratio's Right ICA/CCA Ratio: 2.00 ICA/CCA Values: 156/79 Left ICA/CCA Ratio: 1.02 ICA/CCA Values: 90/88 Updated by Harish Delgado MD on 07/16/2017 6:32:51 PM electronically signed on 07/16/2017 6:33:13 PM with status of Final
[2017-07-16] MEDS ORDERED: Melatonin 3 MG TABLET PO PRN (23:33)
[2017-07-17 05:50] LABS: Basophils % 0.3 %; Eosinophils # 0.2 K/mcL (0.0-0.6); Hematocrit 32.9 % (35.3-44.9); Hemoglobin 11.2 g/dL (11.5-15.4); Immature Granulocytes % 0.3 % (0-4); Lymphocytes # 0.9 K/mcL (0.6-4.6); Lymphocytes % 26.6 %; Mean Corpuscular Hemoglobin 30.9 pg (28.0-33.3); Mean Corpuscular Volume 90.6 fL (83.0-100.0); Mean Platelet Volume 9.5 fL (9.4-12.4); Monocytes # 0.3 K/mcL (0.0-1.3); Monocytes % 9.7 %; Platelet Count 119 K/mcL (140-400); Red Blood Count 3.63 M/mcL (3.82-4.97); Red Cell Distribution Width 13.2 % (11.5-14.5); Segmented Neutrophils % 57.1 %
--- NOTE | 2017-07-17 06:11 | Internal Med Progress Note ---
<Jailene Stallings - Last Filed: 07/17/17 11:22> Date of Encounter: 07/17/17 Time of Encounter: 08:38 - Assessment and plan (1) Paresthesia Status: Acute Assessment and plan: Paresthesia of right arm, right leg, and face - improved Neurology on board; appreciate recommendations A. fib not on anticoagulation due to history of bleed (2) Coronary artery disease Status: Chronic Assessment and plan: CAD s/p CABG Cardiac cath 05/02/2017 showed severe 2 vessel CAD, LVEF of 55%, mid apical hypertrophic cardiomyopathy, 1 of 3 patent bypass grafts and recommended optimizing medical therapy. Admission EKG showed ventricular paced rhythm. Continue home metoprolol, zocor and plavix. Qualifiers: Coronary Disease-Associated Artery/Lesion type: [place] artery [place] vs. transplanted heart: [place] heart Associated angina: without angina Qualified Code(s): I25.10 - Atherosclerotic heart disease of [place] coronary artery without angina pectoris (3) Afib Status: Acute Assessment and plan: Continue home metoprolol and digoxin. Not on anticoagulation due to history of GI bleed and intracranial bleed. Qualifiers: Atrial fibrillation type: unspecified Qualified Code(s): I48.91 - Unspecified atrial fibrillation (4) Seizure disorder Status: Chronic Assessment and plan: Continue home carbamazepine (5) DVT prophylaxis Status: Acute Assessment and plan: SQ heparin - Subjective Interval history: Patient states that the numbness in her right arm, right leg, and face is less but still present. - Constitutional Vitals: Temp Pulse Resp BP Pulse Ox 97.7 F 67 18 148/63 96 07/17/17 04:00 07/17/17 04:00 07/17/17 04:00 07/17/17 04:00 07/17/17 04:00 General appearance: Present: A&O X 3, no acute distress, answers questions appropriately - Head Head exam: Present: atraumatic, normocephalic - Eye Eye exam: Present: PERRL, conjuntiva pink, sclera anicteric Pupils: Present: PERRL - Neck Neck exam general surgery: Present: supple, trachea midline - Respiratory Respiratory exam: Present: CTAB. Absent: accessory muscle use, rales, rhonchi, wheezes - Cardiovascular Cardiovascular exam: Present: RRR, +S1, +S2. Absent: diastolic murmur, gallop, rubs, systolic murmur - GI/Abdominal GI/Abdominal exam: Present: normal bowel sounds, soft, no peritoneal signs. Absent: distended, tenderness - Extremities Exam Extremities exam: Present: warm. Absent: calf tenderness, cyanotic, pedal edema Additional comments: mottling of right hand - improved from yesterday - Neurological Exam Neurological exam: Present: alert, oriented X3. Absent: pronater drift, facial droop, speech deficit Additional comments: Patient reports numbness of her right arm, right leg, and face - all of which are improved from yesterday - Skin Skin exam: Present: dry, intact, mottled (right hand - improved), warm Internal Medicine: Result - Labs CBC & Chem 7: 07/17/17 05:28 07/16/17 05:06 Labs: Short CBC 07/17/17 Range/Units 05:28 WBC 3.5 L (4.3-11.1) K/mcL Hgb 11.2 L (11.5-15.4) g/dL Hct 32.9 L (35.3-44.9) % Plt Count 119 L (140-400) K/mcL Neutrophils # 2.0 (1.6-8.9) K/mcL - Impressions Impressions Echocardiogram 07/15/17 20:23 Impressions: LVEF 60-65%. Normal LV chamber size and function. 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 Atypical septal motion consistent with post-operative status/paced rhythm. Indeterminate diastolic function. Normal right ventricular structure and function. No evidence of PFO with agitated saline contrast. Mild pulmonary hypertension. Estimated RVSP is 37 mmHg. A device lead was visualized in the right atrium and right ventricle. Left Ventricular Wall Motion: Rest Echo Findings All wall segments showed normal motion. Findings: Study Quality * Technically adequate exam. ECG Findings * Paced rhythm. Left Ventricle * LVEF 60-65%. * Normal LV chamber size and function. 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 * Atypical septal motion consistent with post-operative status/paced rhythm. * Indeterminate diastolic function. Right Ventricle * Normal right ventricular structure and function. Left Atrium * Mildly dilated left atrium. Right Atrium * Normal right atrial size. Interatrial Septum * No evidence of PFO with agitated saline contrast. Aortic Valve * Aortic valve not well visualized. Grossly appeared to be trileaflet. * No aortic stenosis. * No aortic regurgitation. Mitral Valve * Normal mitral valve structure and function. * No mitral stenosis. * Trace mitral regurgitation. Tricuspid Valve * Normal tricuspid valve structure and function. * Trace tricuspid regurgitation. * Mild pulmonary hypertension. * Estimated RVSP is 44 mmHg. * Estimated RA pressure is 5 mmHg. Pulmonic Valve * Pulmonic valve is not well visualized. * No pulmonic regurgitation. Aorta * Normally sized aortic root. Pericardium * The pericardium appears normal. IVC * Normal IVC dimensions and inspiratory collapse. Device lead * A device lead was visualized in the right atrium and right ventricle. Pulmonary Artery * Normal visualized portions of the main pulmonary artery. Head CT 07/16/17 17:00 IMPRESSION: No acute abnormality A large amount of low-density is again noted in the parenchyma consistent with multifocal small-vessel ischemic change and multiple small prior infarcts. Subtle superimposed recent ischemia would be difficult to exclude given the background of low density If neurologic symptoms continue, consider MRI D/ / Harish Brooks / Harish Brooks Interpreting Provider: Harish Brooks Consult Discharge Plan - Plan Instructions: Atrial Fibrillation (DC), Meralgia Paresthetica (GEN) Referrals: Kerry Ordaz, CLINICAL RESEARCH TECHNICIAN [Primary Care Provider] - <Andrez Capps - Last Filed: 07/17/17 18:48> Date of Encounter: 07/17/17 - Constitutional Vitals: Temp Pulse Resp BP Pulse Ox 97.7 F 81 17 151/62 98 07/17/17 15:00 07/17/17 15:00 07/17/17 15:00 07/17/17 15:00 07/17/17 15:00 Internal Medicine: Result - Labs CBC & Chem 7: 07/17/17 05:28 07/16/17 05:06 Labs: Short CBC 07/17/17 Range/Units 05:28 WBC 3.5 L (4.3-11.1) K/mcL Hgb 11.2 L (11.5-15.4) g/dL Hct 32.9 L (35.3-44.9) % Plt Count 119 L (140-400) K/mcL Neutrophils # 2.0 (1.6-8.9) K/mcL - Attending Attestation I examined this patient and my medical decision-making was reviewed with the Resident Physician. I agree with the documented findings, disposition and treatment plan as described except to the extent set forth below.
[2017-07-17] MEDS: *HR* Heparin 5,000 UNIT/ML VIAL SQ SCH (06:39)
[2017-07-17] MEDS: CarBAMazepine 100 MG TABLET PO SCH (09:58)
[2017-07-17] MEDS: Fenofibrate 54 MG TABLET PO SCH (09:58)
[2017-07-17] MEDS: *HR* Digoxin 0.125 MG TABLET PO SCH (09:58)
--- NOTE | 2017-07-17 14:41 | Neurology Progress Note ---
Date of Encounter: 07/17/17 Time of Encounter: 14:20 Assessment and Plan (1) Numbness and tingling Current Visit: Yes Status: Acute Patient presents to hospital with reports of sensation deficits including numbness and tingling. No complaints of visual changes, slurred speech, or focal weakness. Neurological exam showed focal decreased sensation without other significant abnormalities. Initial CT examination patient had negative. She does have history of atrial fibrillation not currently on any anticoagulation due to previous intracranial and GI bleeding. If patient had ischemic incident, suspicion of embolic etiology due to patient history. MRI was not possible due to pacemaker. CT showed no acute abnormality, with a large amount of low-density changes in the parenchyma consistent with multifocal small vessel ischemia and prior infarcts. Carotid doppler shows right carotid stenosis of 40-59%. Stenosed carotid is on the opposite side that would be causing her symptoms, so current mild stenosis is asymptomatic. No need for further workup Due to concerns of past bleeding, recommend continuing Plavix without other anticoagulation PT/OT as needed Subjective Principal diagnosis: Numbness and tingling Interval history: Patient reports she feels similar to yesterday, she reports continuing to have numbness and tingling in her right upper extremity. He does state that she has had improvement of the facial numbness that she was experiencing. No new symptoms have developed just no complaints of focal weakness or other sensation defects. Objective - Constitutional Vitals: Temp Pulse Resp BP Pulse Ox 97.7 F 61 17 123/56 96 07/17/17 04:00 07/17/17 07:00 07/17/17 07:00 07/17/17 07:00 07/17/17 07:00 General appearance: Present: A&O X 3, pleasant, no acute distress - Head Head exam: Present: atraumatic, normocephalic - Eye Eye exam: Present: EOMI, PERRL, sclera anicteric - Extremities Exam Extremities exam: Present: warm, radial pulses palpable and symmetrical. Absent : calf tenderness, mottling, pedal edema, tenderness - Neurological Exam Sensorimotor examination: Present: other (Different sensation of light touch in right forearm and hand) Motor Examination: Present: grossly full strength in all extremities Reflex and gait examination: intact Reflexes: Brachioradialis: 2+, Patella: 1+, Achilles: 1+ Mental Status Examination: Present: awake, alert, oriented to person, oriented to place, oriented to time, follows commands appropriately, answers questions appropriately Cranial nerve examination: Present: PERRL, EOMI, sensory to face intact, no facial asymmetry is present, hearing is intact symmetrically, tongue protrudes midline Results - Laboratory Findings CBC and BMP: 07/17/17 05:28 07/16/17 05:06 Abnormal lab findings: Abnormal lab results WBC 3.5 K/mcL (4.3-11.1) L 07/17/17 05:28 RBC 3.63 M/mcL (3.82-4.97) L 07/17/17 05:28 Hgb 11.2 g/dL (11.5-15.4) L 07/17/17 05:28 Hct 32.9 % (35.3-44.9) L 07/17/17 05:28 Plt Count 119 K/mcL (140-400) L 07/17/17 05:28 VBG pCO2 40 mmHg (41-51) L 07/15/17 17:05 VBG pO2 95 mmHg (25-50) H 07/15/17 17:05 Glucose 130 mg/dL (70-99) H 07/16/17 05:06 POC Glucose 188 (58-89) H 07/15/17 13:41 Triglycerides 312 mg/dL (< 150) H 07/16/17 05:06 Cholesterol 213 mg/dL (< 200) H 07/16/17 05:06 LDL Cholesterol, Calc 119 mg/dL (0-99) H 07/16/17 05:06 VLDL Cholesterol, Calc 62 mg/dL (< 31) H 07/16/17 05:06 HDL Cholesterol 32 mg/dL (40-59) L 07/16/17 05:06 Cholesterol/HDL Ratio 6.7 (0-4.9) H 07/16/17 05:06 Digoxin 0.6 ng/mL (0.8-2.0) L 07/15/17 15:29 Consult Discharge Plan - Plan Referrals: Kerry Ordaz, HAND STRIPPER [Primary Care Provider] -
[2017-07-17 15:34] VITALS: BP 151/62
--- NOTE | 2017-07-17 16:38 | Discharge Summary ---
<CristelasifnahidJailene hinojosa - Last Filed: 07/17/17 16:36> Date of Encounter: 07/17/17 Time of Encounter: 16:36 - Discharge Diagnosis (1) Paresthesia Priority: Primary Status: Acute (2) Coronary artery disease Priority: Secondary Status: Chronic Qualifiers: Coronary Disease-Associated Artery/Lesion type: [place] artery [place] vs. transplanted heart: [place] heart Associated angina: without angina Qualified Code(s): I25.10 - Atherosclerotic heart disease of [place] coronary artery without angina pectoris (3) Afib Priority: Secondary Status: Acute Qualifiers: Atrial fibrillation type: unspecified Qualified Code(s): I48.91 - Unspecified atrial fibrillation (4) Seizure disorder Priority: Secondary Status: Chronic (5) DVT prophylaxis Priority: Secondary Status: Acute - Discharge Medications Home Medications: Clopidogrel [Plavix] 75 mg PO DAILY 01/12/16 [History] Digoxin [Lanoxin] 0.125 mg PO DAILY 01/12/16 [History] Gemfibrozil [Lopid] 600 mg PO BID 01/12/16 [History] Levothyroxine [Synthroid] 88 mcg PO DAILY 01/12/16 [History] Metoprolol Tartrate [Lopressor] 50 mg PO BID 01/12/16 [History] carBAMazepine [Tegretol] 200 mg PO BID 01/12/16 [History] Cholecalciferol (D-3) [Vitamin D] 1,000 unit PO DAILY 08/10/16 [History] Multivit-Min/Folic Acid/Vit K1 [Multi For Her 50 Plus Softgel] 1 each PO DAILY 08/10/16 [History] Simvastatin [Zocor] 40 mg PO HS 08/10/16 [History] Fenofibrate Nanocrystallized [Triglide] 160 mg PO QAM 07/15/17 [History] Fluticasone Propionate Nasal [Flonase] 50 mcg NS DAILY PRN 07/15/17 [History] Allergies/Adverse Reactions: 3 Allergy/AdvReac Type Severity Reaction Status Date / Time phenytoin [From Dilantin] Allergy Hives Verified 05/25/15 09:55 Sulfa (Sulfonamide Allergy Hives Verified 05/25/15 09:55 Antibiotics) vancomycin Allergy Hives Verified 05/25/15 09:55 Amoxicillin AdvReac Hives Verified 05/02/17 08:01 Procedures/tests Complete & Pending: Procedures Performed prior 72 hours Category Date Time Status CT head/brain wo con [CT] Routine Cat Scan 07/16/17 17:00 Completed ECG 12 lead ECG [ECG] Routine Y 07/15/17 13:45 Completed EV carotid duplex imaging BI Routine Y 07/15/17 20:23 Completed EV echocardiogram w enhance Routine Y 07/15/17 20:23 Completed Date of admission: 07/15/17 18:50 Primary care physician: Kerry Ordaz, Consults: 07/15/17 21:05 Consult to Neurology [CONS] Routine Consulting Provider: [facility] Reason for Consult: right sided paresthesias. Call Completed: No 07/17/17 13:31 Consult to Occupational Therapy [CONS] Routine Comment: Evaluate, develop and implement POC Reason for Consult: Suspected stroke. No reported weakness, assess and recommendation Consult to Physical Therapy [CONS] Routine Comment: Evaluate, develop and implement POC Reason for Consult: Suspected stroke. No reported weakness, assess and recommendation Discharging clinician: Jailene Stallings Anticipated date of discharge: 07/17/17 - Patient Status Disposition: Home, Self-Care Condition: Good Functional capacity at discharge: independent ambulation Overall status at discharge: patient is progressing back to baseline - Discharge Instructions Instructions: Atrial Fibrillation (DC), Meralgia Paresthetica (GEN) Follow Up With: Kerry Ordaz, DELI WORKER [Primary Care Provider] - - Diet and Activity Diet: low fat, low cholesterol Interval History: Patient reports that her numbness is improved from yesterday. Hospital course: Ms. Shultz is a 82 year old female admitted for acute onset right sided paresthesia that included the right arm, right leg, and entire face. Initial and repeat head CT did not show acute findings. Patient cannot have an MRI due to pacemaker. She has atrial fibrillation and is not on anticoagulation due to a previous history of GI and intracranial bleed. She is being discharged home with improvement of her paresthesia. She will continue her aspirin and plavix. - Time Spent with Patient Total time spent providing and/or coordinating discharge services: - Constitutional Vitals: Temp Pulse Resp BP Pulse Ox 97.7 F 81 17 151/62 98 07/17/17 15:00 07/17/17 15:00 07/17/17 15:00 07/17/17 15:00 07/17/17 15:00 General appearance: Present: A&O X 3, no acute distress, answers questions appropriately - Head Head exam: Present: atraumatic, normocephalic - Eye Eye exam: Present: PERRL, conjuntiva pink, sclera anicteric Pupils: Present: PERRL - Neck Neck exam general surgery: Present: supple, trachea midline - Respiratory Respiratory exam: Present: CTAB. Absent: accessory muscle use, rales, rhonchi, wheezes - Cardiovascular Cardiovascular exam: Present: irregular rhythm, +S1, +S2. Absent: diastolic murmur, gallop, rubs, systolic murmur - GI/Abdominal GI/Abdominal exam: Present: normal bowel sounds, soft, no peritoneal signs. Absent: distended, tenderness - Extremities Exam Extremities exam: Present: mottling (right hand - improved), warm. Absent: pedal edema, tenderness - Neurological Exam Neurological exam: Present: alert, oriented X3. Absent: pronater drift, facial droop, speech deficit Additional comments: Patient reports numbness of her right arm, right leg, and face - all improved since yesterday - Skin Skin exam: Present: dry, intact, mottled (right hand - improved) <Andrez Capps P - Last Filed: 07/17/17 18:49> Date of Encounter: 07/17/17 Procedures/tests Complete & Pending: Procedures Performed prior 72 hours Category Date Time Status CT head/brain wo con [CT] Routine Cat Scan 07/16/17 17:00 Completed ECG 12 lead ECG [ECG] Routine Y 07/15/17 13:45 Completed EV carotid duplex imaging BI Routine Y 07/15/17 20:23 Completed EV echocardiogram w enhance Routine Y 07/15/17 20:23 Completed Date of admission: 07/15/17 18:50 Primary care physician: Kerry Ordaz, Consults: 07/15/17 21:05 Consult to Neurology [CONS] Routine Consulting Provider: [facility] Reason for Consult: right sided paresthesias. Call Completed: No 07/17/17 13:31 Consult to Occupational Therapy [CONS] Routine Comment: Evaluate, develop and implement POC Reason for Consult: Suspected stroke. No reported weakness, assess and recommendation Consult to Physical Therapy [CONS] Routine Comment: Evaluate, develop and implement POC Reason for Consult: Suspected stroke. No reported weakness, assess and recommendation Hospital course: Ms. Shultz is a 82 year old female - Time Spent with Patient Total time spent providing and/or coordinating discharge services: - Constitutional Vitals: Temp Pulse Resp BP Pulse Ox 97.7 F 81 17 151/62 98 07/17/17 15:00 07/17/17 15:00 07/17/17 15:00 07/17/17 15:00 07/17/17 15:00 - Attending Attestation I examined this patient and my medical decision-making was reviewed with the Resident Physician. I agree with the documented findings, disposition and treatment plan as described except to the extent set forth below. Patient was seen and examined by neurology. Recommended aspirin/Plavix. Patient will have outpatient follow-up with neurology.
[2017-07-17] MEDS ORDERED: FLUARIX QUAD 2017-18 36MOS UP/PF 0.5 ML SYRINGE IM ONE (17:28)
== END 2017-07-17 17:50 | disposition home or self-care (01) ==
LOC: EMEROO 13:31 → 2NENU 13:31 → SUATTDRO 18:50 → 2NENU 19:46
PROVIDERS: ADMIT Internal Medicine Hematology & Oncology; ATTEND Internal Medicine

== ENCOUNTER 2019-02-18 16:49 | Inpatient (IN) ==
[2019-02-18 17:41] LABS: Mean Platelet Volume 10.2 fL (9.4-12.4); Red Blood Count 3.67 M/mcL (3.82-4.97); Red Cell Distribution Width 15.9 % (11.5-14.5)
[2019-02-18] MEDS ORDERED: Isovue-370 500 ML BOTTLE IVP ONE (17:42)
[2019-02-18 17:43] LABS: Basophils % 0.4 %; Eosinophils # 0.2 K/mcL (0.0-0.6); Eosinophils % 2.4 %; Hematocrit 35.4 % (35.3-44.9); Hemoglobin 11.6 g/dL (11.5-15.4); Immature Granulocytes % 0.4 % (0-4); Lymphocytes % 14.8 %; Mean Corpuscular HGB Conc 32.8 g/dL (31.6-35.5); Mean Corpuscular Hemoglobin 31.6 pg (28.0-33.3); Mean Corpuscular Volume 96.5 fL (83.0-100.0); Monocytes # 0.8 K/mcL (0.0-1.3); Monocytes % 11.6 %; Neutrophils # 4.7 K/mcL (1.6-8.9); Segmented Neutrophils % 70.4 %
[2019-02-18 17:44] LABS: Platelet Count 95 K/mcL (140-400)
[2019-02-18 17:48] LABS: INR 1.4; Prothrombin Time 16.2 Seconds (9.4-12.1)
--- NOTE | 2019-02-18 17:50 | Emergency Department Note ---
Disposition Clinical Impression: Atypical chest pain, Acute cholecystitis, Elevated troponin Disposition: Admitted As Inpatient Condition: Fair Referrals: NONE,PCP [Primary Care Provider] - Forms: ED Satisfaction Letter Chest Pain HPI - General Chief Complaint: ED Chest Pain Stated Complaint: chest pain Time Seen by Provider: 02/18/19 17:14 Source: patient Limitations: no limitations Vital Signs Reviewed: Yes Nursing Notes Reviewed: Yes - History of Present Illness HPI Narrative: Patient presented with the chief complaint of shortness of breath for 4 days, that has progressively worsened and occurs on exertion, relieved by rest. She also complains of nonspecific chest pain that she has difficulty quantifying or qualifying. No associated diaphoresis or radiation to the neck/jaw/arms but does have radiation to the back. She also mentions recent dysuria, urinary frequency. The daughter in the room states that the patient is very confused and is not acting her normal self, the patient confirms this and states that she is having trouble describing her symptoms. The daughter states she noticed that the patient is having difficulty breathing. Severity scale (1-10): 7 - Related Data Home Medications Medication Instructions Recorded Confirmed Clopidogrel [Plavix] 75 mg PO DAILY 01/12/16 10/03/18 Digoxin [Lanoxin] 0.125 mg PO DAILY 01/12/16 10/03/18 Metoprolol Tartrate [Lopressor] 50 mg PO BID 01/12/16 10/03/18 carBAMazepine [Tegretol] 200 mg PO BID 01/12/16 10/03/18 Cholecalciferol (D-3) [Vitamin D] 1,000 unit PO DAILY 08/10/16 10/03/18 Multivit-Min/Folic Acid/Vit K1 1 each PO DAILY 08/10/16 10/03/18 [Multi For Her 50 Plus Softgel] Atorvastatin [Lipitor] 40 mg PO DAILY 10/03/18 10/03/18 Albuterol Sulfate [Ventolin Hfa] 2 puff IH Q6H PRN 02/18/19 02/18/19 Fenofibrate Nanocrystallized 145 mg PO DAILY 02/18/19 02/18/19 [Fenofibrate] Levothyroxine Sodium 112 mcg PO QAM 02/18/19 02/18/19 Nitroglycerin [Nitrostat] 0.4 mg PO AD PRN 02/18/19 02/18/19 Allergies Allergy/AdvReac Type Severity Reaction Status Date / Time Amoxicillin Allergy Hives Verified 10/03/18 19:36 phenytoin [From Dilantin] Allergy Hives Verified 10/03/18 19:36 Sulfa (Sulfonamide Allergy See Verified 10/03/18 19:36 Antibiotics) Comments vancomycin Allergy Hives Verified 10/03/18 19:36 All systems ED: reviewed and negative except as stated. Review of Systems: As Per HPI Chest Pain PMH - Past Medical History Medical history: Reports: atrial fibrillation, cardiomyopathy, coronary artery disease, hyperlipidemia, hypertension, TIA, other Surgical history: Reports: coronary bypass (CABG), pacemaker/AICD, thyroidectomy Psychiatric history: Reports: no psych history - Social History Smoking Status: Former smoker Alcohol use: Reports: none Drug use: Reports: none Physical Exam - General Limitations: no limitations General appearance: alert, in no apparent distress - Head Head exam: atraumatic, normocephalic - Eye Eye exam: Present: PERRL, EOMI - Neck Neck exam: Present: normal inspection, full ROM - Chest Chest inspection: Present: symmetric chest wall rise - Respiratory Respiratory exam: Present: other (Coarse lung sounds, poor expansion, diffuse rales) - Cardiovascular Cardiovascular exam: Present: regular rate, normal rhythm, normal heart sounds - Abdominal Exam Abdominal exam: Present: soft, tenderness Abdominal tenderness: Present: diffuse - Extremities Exam Extremities exam: Present: normal inspection - Expanded Lower Extremity Exam Hip/Pelvis exam: Absent: swelling - Back Exam Back exam: Present: normal inspection - Neurological Exam Neurological exam: Present: alert, oriented X3 - Skin Skin exam: Present: warm, dry, intact Course Course Narrative: Based on patient's clinical signs and symptoms there is concern for ACS, aortic dissection, heart failure, pneumonia, UTI. Basic labs including CBC, BMP, BNP, troponin ordered and pending. EKG, chest CTA ordered and pending. Vital Signs Temperature 97.3 F L 02/18/19 16:51 Pulse Rate 66 02/18/19 16:51 Respiratory Rate 18 02/18/19 16:51 Blood Pressure 116/62 02/18/19 16:51 O2 Sat by Pulse Oximetry 96 02/18/19 16:51 Temperature 97.3 F L 02/18/19 16:58 Pulse Rate 76 02/18/19 20:01 Respiratory Rate 18 02/18/19 20:01 Blood Pressure 150/83 05/15/19 20:01 O2 Sat by Pulse Oximetry 100 02/18/19 20:01 Oxygen Delivery Oxygen Delivery Room Air Chest Pain - MDM Narrative Medical decision making narrative: Patient presented with several complaints including chest pain radiating to the back, shortness of breath, confusion. Immediate concerns based on clinical signs and symptoms were aortic dissection, pneumonia, ACS, UTI. Chest CTA was negative for pneumonia, dissection, pulmonary embolism. Imaging evidence for acute cholecystitis was identified incidentally. Urinalysis was not convincing for UTI. Troponin was elevated but has been chronically elevated throughout hospitalizations in the patient's chest pain resolved while in the emergency department. EKG was not concerning for acute ischemia. BNP was elevated in patients physical exam was significant for rales on lung auscultation. Surgery was consultation and recommended limited abdominal ultrasound which corroborated CT findings of acute cholecystitis. Patient was started on IV furosemide for possible heart failure/pulmonary edema. Admitting hospitalist Dr. Adams was contacted who agreed to admit the patient to the hospitalist service for possible acute cholecystitis, heart failure, confusion. - Lab Data Lab results reviewed: Yes I reviewed the patient's lab results. Result diagrams: 02/18/19 17:30 02/18/19 17:30 Lab Results 02/18/19 02/18/19 02/18/19 Range/Units 17:30 17:30 17:30 WBC 6.7 (4.3-11.1) K/mcL RBC 3.67 L (3.82-4.97) M/mcL Hgb 11.6 (11.5-15.4) g/dL Hct 35.4 (35.3-44.9) % MCV 96.5 (83.0-100.0) fL MCH 31.6 (28.0-33.3) pg MCHC 32.8 (31.6-35.5) g/dL RDW 15.9 H (11.5-14.5) % Plt Count 95 L (140-400) K/mcL MPV 10.2 (9.4-12.4) fL Immature Gran % 0.4 (0-4) % Seg Neutrophils % 70.4 % Lymphocytes % 14.8 % Monocytes % 11.6 % Eosinophils % 2.4 % Basophils % 0.4 % Neutrophils # 4.7 (1.6-8.9) K/mcL Lymphocytes # 1.0 (0.6-4.6) K/mcL Monocytes # 0.8 (0.0-1.3) K/mcL Eosinophils # 0.2 (0.0-0.6) K/mcL Basophils # 0.0 (0.0-0.2) K/mcL Immature Plt Fraction 4.0 (1.1-6.1) % PT 16.2 H (9.4-12.1) Seconds INR 1.4 APTT 30.1 (26.0-36.0) Seconds Sodium 140 (136-145) mEq/L Potassium 3.2 L (3.5-5.1) mEq/L Chloride 106 (98-107) mEq/L Carbon Dioxide 27 (23-29) mEq/L BUN 42 H (8-23) mg/dL Creatinine 1.15 (0.60-1.20) mg/dL Est GFR ( Amer) 54 L (> 60) Est GFR (Non-Af Amer) 45 L (> 60) BUN/Creatinine Ratio 37 H (6-26) Glucose 198 H (70-105) mg/dL Calculated Osmolality 306 H (280-300) Calcium 9.1 (8.6-10.3) mg/dL Total Bilirubin 0.6 (0.3-1.0) mg/dL Direct Bilirubin 0.2 (0.0-0.2) mg/dL Indirect Bilirubin 0.4 (0.0-1.2) mg/dL AST 72 H (13-39) Units/L ALT 40 (7-52) Units/L Alkaline Phosphatase 72 (34-104) Units/L Troponin I 0.31 H* (< 0.04) ng/mL B-Natriuretic Peptide (Less than 100) pg/mL Serum Total Protein 6.7 (6.4-8.9) g/dL Albumin 4.4 (3.5-5.7) g/dL Globulin 2.3 L (2.4-3.5) g/dL Albumin/Globulin Ratio 1.9 (1.1-2.2) Lipase (11-82) Units/L Urine Color (Yellow) Urine Clarity (Clear) Urine pH (5.0-8.0) pH Units Ur Specific [place] (1.010-1.025) Urine Protein (Neg-Trace) mg/dL Urine Glucose (UA) (Normal) mg/dL Urine Ketones (Negative) mg/dL Urine Blood (Negative) Urine Nitrite (Negative) Urine Bilirubin (Negative) Urine Urobilinogen (Normal) mg/dL Ur Leukocyte Esterase (Negative) Urine Microscopic RBC (0-3) per hpf Urine Microscopic WBC (0-3) per hpf Ur Squamous Epith Cells (None-Few) per lpf Urine Bacteria (None-Few) per hpf Hyaline Casts (None-Few) per lpf Ur Culture Indicated? (NO) 02/18/19 02/18/19 02/18/19 Range/Units 17:30 17:30 19:56 WBC (4.3-11.1) K/mcL RBC (3.82-4.97) M/mcL Hgb (11.5-15.4) g/dL Hct (35.3-44.9) % MCV (83.0-100.0) fL MCH (28.0-33.3) pg MCHC (31.6-35.5) g/dL RDW (11.5-14.5) % Plt Count (140-400) K/mcL MPV (9.4-12.4) fL Immature Gran % (0-4) % Seg Neutrophils % % Lymphocytes % % Monocytes % % Eosinophils % % Basophils % % Neutrophils # (1.6-8.9) K/mcL Lymphocytes # (0.6-4.6) K/mcL Monocytes # (0.0-1.3) K/mcL Eosinophils # (0.0-0.6) K/mcL Basophils # (0.0-0.2) K/mcL Immature Plt Fraction (1.1-6.1) % PT (9.4-12.1) Seconds INR APTT (26.0-36.0) Seconds Sodium (136-145) mEq/L Potassium (3.5-5.1) mEq/L Chloride (98-107) mEq/L Carbon Dioxide (23-29) mEq/L BUN (8-23) mg/dL Creatinine (0.60-1.20) mg/dL Est GFR ( Amer) (> 60) Est GFR (Non-Af Amer) (> 60) BUN/Creatinine Ratio (6-26) Glucose (70-105) mg/dL Calculated Osmolality (280-300) Calcium (8.6-10.3) mg/dL Total Bilirubin (0.3-1.0) mg/dL Direct Bilirubin (0.0-0.2) mg/dL Indirect Bilirubin (0.0-1.2) mg/dL AST (13-39) Units/L ALT (7-52) Units/L Alkaline Phosphatase (34-104) Units/L Troponin I (< 0.04) ng/mL B-Natriuretic Peptide 1132 H (Less than 100) pg/mL Serum Total Protein (6.4-8.9) g/dL Albumin (3.5-5.7) g/dL Globulin (2.4-3.5) g/dL Albumin/Globulin Ratio (1.1-2.2) Lipase 47 (11-82) Units/L Urine Color Yellow (Yellow) Urine Clarity Clear (Clear) Urine pH 6.0 (5.0-8.0) pH Units Ur Specific [place] > 1.030 H (1.010-1.025) Urine Protein Trace (Neg-Trace) mg/dL Urine Glucose (UA) Normal (Normal) mg/dL Urine Ketones Negative (Negative) mg/dL Urine Blood Negative (Negative) Urine Nitrite Negative (Negative) Urine Bilirubin Negative (Negative) Urine Urobilinogen Normal (Normal) mg/dL Ur Leukocyte Esterase Small H (Negative) Urine Microscopic RBC 0-3 (0-3) per hpf Urine Microscopic WBC 5-15 H (0-3) per hpf Ur Squamous Epith Cells Many H (None-Few) per lpf Urine Bacteria None Seen (None-Few) per hpf Hyaline Casts None Seen (None-Few) per lpf Ur Culture Indicated? YES A (NO) - Radiology Data Radiology results reviewed: Yes I reviewed the patient's radiology results. Chest X-Ray 02/18/19 17:21 IMPRESSION: 1. No acute airspace consolidation. 2. Stable cardiomegaly and chronic pulmonary vascular congestion, without overt edema or CHF. D/ / 02/18/2019 17:43:08 Damien Vera MD / [facility] Interpreting Provider: Damien Vera MD CT Dissection 02/18/19 17:42 IMPRESSION: No evidence of aortic dissection. Nonspecific ground-glass opacity within the lungs, obscured by motion artifact, possibly related to atelectasis. Correlation for edema is recommended. Distended gallbladder containing tiny stones in showing wall thickening adjacent stranding most compatible with acute cholecystitis. There is wall thickening and increased mucosal enhancement of the distal gastric antrum and duodenum also suggesting inflammation. D/ / Geno Hinkle Cha, MD / Geno Hinkle Cha, MD Interpreting Provider: Geno Hinkle Cha, MD Head CT 02/18/19 17:48 IMPRESSION: No acute intracranial abnormality. D/ / Damien Turner MD / Damien Turner MD Interpreting Provider: Damien Turner MD Abdomen Ultrasound 02/18/19 19:46 IMPRESSION: Findings in correlation with the CT study consistent with acute cholecystitis. The tiny gallstone noted by CT was not visualized by ultrasound. There was evidence of thick bile/sludge. Mild diffuse fatty infiltration of the liver. D/ / Harish Reece MD / Harish Reece MD Interpreting Provider: Harish Reece MD - EKG Data EKG attestation: Yes I reviewed and interpreted this EKG. EKG results narrative: EKG performed 02/18/19 for chest pain. EKG reviewed by myself and the attending. Ventricularly paced complexes with intermittent sinus beats. Sinus beats do not demonstrate any specific ST depression or elevation. EKG discussed with cardiology who did not comment on any signs of acute ischemia. Attestation Statement - Attestation Attestation: I, Campos Argueta DO, examined this patient [id number] and my medical decision-making was reviewed with Chidi Waters PGY-1, Resident Physician. I agree with the documented findings, disposition and treatment plan as described except to the extent set forth below. I personally supervised and was present for the dominguez/critical portions of the procedures completed by the resident documented below. Please see my progress notes for details.
[2019-02-18 17:51] LABS: Activated Partial Thrombo Time 30.1 Seconds (26.0-36.0)
--- NOTE | 2019-02-18 17:58 | Emergency Department Note ---
Disposition Clinical Impression: Atypical chest pain, Acute cholecystitis, Elevated troponin Disposition: Admitted As Inpatient Condition: Fair Referrals: NONE,PCP [Primary Care Provider] - Forms: ED Satisfaction Letter Time of Disposition: 21:29 General Adult HPI - General Chief complaint: ED Chest Pain Stated complaint: chest pain Time Seen by Provider: 02/18/19 17:14 Source: patient Limitations: no limitations - History of Present Illness Pain Scale: 7 - Related Data Home Medications Medication Instructions Recorded Confirmed Clopidogrel [Plavix] 75 mg PO DAILY 01/12/16 02/18/19 Digoxin [Lanoxin] 0.125 mg PO DAILY 01/12/16 02/18/19 Metoprolol Tartrate [Lopressor] 50 mg PO BID 01/12/16 02/18/19 carBAMazepine [Tegretol] 200 mg PO BID 01/12/16 02/18/19 Cholecalciferol (D-3) [Vitamin D] 1,000 unit PO DAILY 08/10/16 02/18/19 Multivit-Min/Folic Acid/Vit K1 1 each PO DAILY 08/10/16 02/18/19 [Multi For Her 50 Plus Softgel] Atorvastatin [Lipitor] 40 mg PO DAILY 10/03/18 02/18/19 Albuterol Sulfate [Ventolin Hfa] 2 puff IH Q6H PRN 02/18/19 02/18/19 Fenofibrate Nanocrystallized 145 mg PO DAILY 02/18/19 02/18/19 [Fenofibrate] Levothyroxine Sodium 112 mcg PO QAM 02/18/19 02/18/19 Nitroglycerin [Nitrostat] 0.4 mg PO AD PRN 02/18/19 02/18/19 Allergies Allergy/AdvReac Type Severity Reaction Status Date / Time Amoxicillin Allergy Hives Verified 10/03/18 19:36 phenytoin [From Dilantin] Allergy Hives Verified 10/03/18 19:36 Sulfa (Sulfonamide Allergy See Verified 10/03/18 19:36 Antibiotics) Comments vancomycin Allergy Hives Verified 10/03/18 19:36 Past Medical History - Past Medical History Medical history: Reports: atrial fibrillation, cardiomyopathy, coronary artery disease, hyperlipidemia, hypertension, TIA, other Surgical history: Reports: coronary bypass (CABG), pacemaker/AICD, thyroidectomy Psychiatric history: Reports: no psych history - Social History Smoking Status: Former smoker Smokeless Tobacco Status: No Alcohol use: Reports: none Drug use: Reports: none Physical Exam - General Limitations: no limitations General appearance: alert, in no apparent distress Course Vital Signs Temperature 97.3 F L 02/18/19 16:51 Pulse Rate 66 02/18/19 16:51 Respiratory Rate 18 02/18/19 16:51 Blood Pressure 116/62 02/18/19 16:51 O2 Sat by Pulse Oximetry 96 02/18/19 16:51 Temperature 97.3 F L 02/18/19 16:58 Pulse Rate 76 02/18/19 20:01 Respiratory Rate 18 02/18/19 20:01 Blood Pressure 150/83 02/18/19 20:01 O2 Sat by Pulse Oximetry 100 02/18/19 20:01 Oxygen Delivery Oxygen Delivery Room Air Medical Decision Making - Lab Data Result diagrams: 02/18/19 17:30 02/18/19 17:30 Lab Results 02/18/19 02/18/19 02/18/19 Range/Units 17:30 17:30 17:30 WBC 6.7 (4.3-11.1) K/mcL RBC 3.67 L (3.82-4.97) M/mcL Hgb 11.6 (11.5-15.4) g/dL Hct 35.4 (35.3-44.9) % MCV 96.5 (83.0-100.0) fL MCH 31.6 (28.0-33.3) pg MCHC 32.8 (31.6-35.5) g/dL RDW 15.9 H (11.5-14.5) % Plt Count 95 L (140-400) K/mcL MPV 10.2 (9.4-12.4) fL Immature Gran % 0.4 (0-4) % Seg Neutrophils % 70.4 % Lymphocytes % 14.8 % Monocytes % 11.6 % Eosinophils % 2.4 % Basophils % 0.4 % Neutrophils # 4.7 (1.6-8.9) K/mcL Lymphocytes # 1.0 (0.6-4.6) K/mcL Monocytes # 0.8 (0.0-1.3) K/mcL Eosinophils # 0.2 (0.0-0.6) K/mcL Basophils # 0.0 (0.0-0.2) K/mcL Immature Plt Fraction 4.0 (1.1-6.1) % PT 16.2 H (9.4-12.1) Seconds INR 1.4 APTT 30.1 (26.0-36.0) Seconds Sodium 140 (136-145) mEq/L Potassium 3.2 L (3.5-5.1) mEq/L Chloride 106 (98-107) mEq/L Carbon Dioxide 27 (23-29) mEq/L BUN 42 H (8-23) mg/dL Creatinine 1.15 (0.60-1.20) mg/dL Est GFR ( Amer) 54 L (> 60) Est GFR (Non-Af Amer) 45 L (> 60) BUN/Creatinine Ratio 37 H (6-26) Glucose 198 H (70-105) mg/dL Calculated Osmolality 306 H (280-300) Calcium 9.1 (8.6-10.3) mg/dL Total Bilirubin 0.6 (0.3-1.0) mg/dL Direct Bilirubin 0.2 (0.0-0.2) mg/dL Indirect Bilirubin 0.4 (0.0-1.2) mg/dL AST 72 H (13-39) Units/L ALT 40 (7-52) Units/L Alkaline Phosphatase 72 (34-104) Units/L Troponin I 0.31 H* (< 0.04) ng/mL B-Natriuretic Peptide (Less than 100) pg/mL Serum Total Protein 6.7 (6.4-8.9) g/dL Albumin 4.4 (3.5-5.7) g/dL Globulin 2.3 L (2.4-3.5) g/dL Albumin/Globulin Ratio 1.9 (1.1-2.2) Lipase (11-82) Units/L Urine Color (Yellow) Urine Clarity (Clear) Urine pH (5.0-8.0) pH Units Ur Specific [place] (1.010-1.025) Urine Protein (Neg-Trace) mg/dL Urine Glucose (UA) (Normal) mg/dL Urine Ketones (Negative) mg/dL Urine Blood (Negative) Urine Nitrite (Negative) Urine Bilirubin (Negative) Urine Urobilinogen (Normal) mg/dL Ur Leukocyte Esterase (Negative) Urine Microscopic RBC (0-3) per hpf Urine Microscopic WBC (0-3) per hpf Ur Squamous Epith Cells (None-Few) per lpf Urine Bacteria (None-Few) per hpf Hyaline Casts (None-Few) per lpf Ur Culture Indicated? (NO) 02/18/19 02/18/19 02/18/19 Range/Units 17:30 17:30 19:56 WBC (4.3-11.1) K/mcL RBC (3.82-4.97) M/mcL Hgb (11.5-15.4) g/dL Hct (35.3-44.9) % MCV (83.0-100.0) fL MCH (28.0-33.3) pg MCHC (31.6-35.5) g/dL RDW (11.5-14.5) % Plt Count (140-400) K/mcL MPV (9.4-12.4) fL Immature Gran % (0-4) % Seg Neutrophils % % Lymphocytes % % Monocytes % % Eosinophils % % Basophils % % Neutrophils # (1.6-8.9) K/mcL Lymphocytes # (0.6-4.6) K/mcL Monocytes # (0.0-1.3) K/mcL Eosinophils # (0.0-0.6) K/mcL Basophils # (0.0-0.2) K/mcL Immature Plt Fraction (1.1-6.1) % PT (9.4-12.1) Seconds INR APTT (26.0-36.0) Seconds Sodium (136-145) mEq/L Potassium (3.5-5.1) mEq/L Chloride (98-107) mEq/L Carbon Dioxide (23-29) mEq/L BUN (8-23) mg/dL Creatinine (0.60-1.20) mg/dL Est GFR ( Amer) (> 60) Est GFR (Non-Af Amer) (> 60) BUN/Creatinine Ratio (6-26) Glucose (70-105) mg/dL Calculated Osmolality (280-300) Calcium (8.6-10.3) mg/dL Total Bilirubin (0.3-1.0) mg/dL Direct Bilirubin (0.0-0.2) mg/dL Indirect Bilirubin (0.0-1.2) mg/dL AST (13-39) Units/L ALT (7-52) Units/L Alkaline Phosphatase (34-104) Units/L Troponin I (< 0.04) ng/mL B-Natriuretic Peptide 1132 H (Less than 100) pg/mL Serum Total Protein (6.4-8.9) g/dL Albumin (3.5-5.7) g/dL Globulin (2.4-3.5) g/dL Albumin/Globulin Ratio (1.1-2.2) Lipase 47 (11-82) Units/L Urine Color Yellow (Yellow) Urine Clarity Clear (Clear) Urine pH 6.0 (5.0-8.0) pH Units Ur Specific [place] > 1.030 H (1.010-1.025) Urine Protein Trace (Neg-Trace) mg/dL Urine Glucose (UA) Normal (Normal) mg/dL Urine Ketones Negative (Negative) mg/dL Urine Blood Negative (Negative) Urine Nitrite Negative (Negative) Urine Bilirubin Negative (Negative) Urine Urobilinogen Normal (Normal) mg/dL Ur Leukocyte Esterase Small H (Negative) Urine Microscopic RBC 0-3 (0-3) per hpf Urine Microscopic WBC 5-15 H (0-3) per hpf Ur Squamous Epith Cells Many H (None-Few) per lpf Urine Bacteria None Seen (None-Few) per hpf Hyaline Casts None Seen (None-Few) per lpf Ur Culture Indicated? YES A (NO) Critical Care Time Critical Care Time: Yes Total Critical Care Time: 45 Attestation: Critical care performed: Time is exclusive of separately billable procedures. Time includes: direct patient care, patient reassessment, coordination of patient care, interpretation of data (laboratory data, radiology data, and respiratory data), review of patient's medical records, medical consultation and documentation of patient care. Procedures included in critical care time: Procedures excluded from critical care time: Attestation Statement - Attestation Attestation: I, Campos Argueta DO, examined this patient [id number] and my medical decision-making was reviewed with Chidi Waters PGY-1, Resident Physician. I agree with the documented findings, disposition and treatment plan as described except to the extent set forth below. I personally supervised and was present for the dominguez/critical portions of the procedures completed by the resident docume nted below. Please see my progress notes for details. 83-year-old female presents emergency room for evaluation of intermittent chest discomfort and pain along with shortness of breath. Patient has a significant history for coronary artery disease requiring 5 vessel bypass. Currently she is denying any symptoms of this time outside of the uneasy abnormal sensation to her chest wall. Denies any fevers or chills. Denies any nausea vomiting or diarrhea. Currently denying headache or vision change. She has not fallen or injured herself. Patient is otherwise clinically stable at this point. Concern is noted secondary to describe chest pain as well as some EKG abnormalities that were noted during the initial EKG collected in triage. Patient has abnormality in the conduction morphology of the QRS complex secondary to her pacemaker. Is compared to previous EKG from several months ago that did have a completely different morphology at that time. The placement was evaluated no repeat EKG was collected showing similar morphology that time. Cardiology was paged. Patient is also concerning for vascular versus pulmonary related issue. 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 She is not currently on blood thinners. Physical exam is otherwise unremarkable. Head is atraumatic. Pupils are round reactive. Oropharynx is patent. Trachea is midline. Lungs are diminished with coarse crackles. Heart is regular. Ventricularly paced rhythm noted on the monitor. Pacemaker site appears to be healed well as well as the anterior sternotomy. Abdomen is soft nontender nondistended. Patient is otherwise normal. Mild edema noted. No signs of cellulitis or infection. Patient will have immediate CT angiography the chest abdomen and pelvis completed secondary to concern for the described pain that radiates into her back as well as a shortness of breath and pain. Detailed workup for cardiac pulmonary and vascular related issues will be established at this time. Cardiology consultation was completed. EKG interpretation completed under my direct supervision. See detailed documentation the physical exam, medical intervention, medical decision-making and disposition the resident physician's note. No critical care applied the patient's treatment course at this time. 1800 Patient's troponin is 0.31. She does have a chronically elevated troponin the past. Aspirin will be held until CT angiography was completed. Nitroglycerin drip drip will be ordered at this time secondary to her pain and symptoms. Close monitoring to be established. 45 minutes of critical care applied the patient's treatment course secondary to multidisciplinary intervention management 1999 CT angiography the chest abdomen and pelvis is concerning for acute cholecystitis. The on-call surgeon Dr. Aldrich was contacted. We reviewed the case recommended a right upper quadrant ultrasound. Symptomatic control as been completed. The hospitalist Dr. Adams is also been contacted for admission. He reviewed the case. Recommendations were noted in the charting. Urinalysis is still pending. Ultrasound is still pending. Otherwise the patient will require admission for confusion and altered mental status as well as possible surgical intervention. Patient is otherwise stable. She will be monitored here in emergency department until the admission process is completed. 2100 Ultrasound is concerning for acute cholecystitis. Surgical intervention will be discussed reviewed. The hospitalist will admit the patient further monitoring and symptomatic control. Patient is otherwise stable at the time of admission.
[2019-02-18 18:07] LABS: Calcium 9.1 mg/dL (8.6-10.3); Potassium 3.2 mEq/L (3.5-5.1); Troponin I 0.31 ng/mL (< 0.04)
[2019-02-18] MEDS ORDERED: Potassium Chloride Elixir 20 MEQ/15 ML UDC PO ONE (18:18)
[2019-02-18] MEDS: Nitroglycerin 25 MG/250 ML INFUS..BTL IVC SCH (19:00)
[2019-02-18] MEDS ORDERED: Furosemide 40 MG/4 ML VIAL IVP ONE (19:01)
[2019-02-18] MEDS ORDERED: Aztreonam 1,000 MG in Water for inj. (sterile) 20 ML 10 ML IVP STA (19:02)
[2019-02-18 19:10] LABS: Albumin 4.4 g/dL (3.5-5.7); Albumin/Globulin Ratio 1.9 (1.1-2.2); Bilirubin,Direct 0.2 mg/dL (0.0-0.2); Bilirubin,Indirect 0.4 mg/dL (0.0-1.2); Bilirubin,Total 0.6 mg/dL (0.3-1.0); Globulin 2.3 g/dL (2.4-3.5); Total Protein 6.7 g/dL (6.4-8.9)
[2019-02-18] MEDS ORDERED: Aspirin 81 MG TAB.CHEW PO STA (20:01)
[2019-02-18 20:04] LABS: Bilirubin,Urine Negative (Negative); Blood,Urine Negative (Negative); Clarity,Urine Clear (Clear); Color,Urine Yellow (Yellow); Glucose,Urine (UA) Normal (Normal); Ketones,Urine Negative (Negative); Leukocyte Esterase,Urine Small (Negative); Nitrite,Urine Negative (Negative); Protein,Urine Trace mg/dL (Neg-Trace); Specific Gravity,Urine > 1.030 (1.010-1.025); Urobilinogen,Urine Normal (Normal)
[2019-02-18 20:06] LABS: Bacteria,Urine None Seen per hpf (None-Few); Hyaline Casts,Urine None Seen per lpf (None-Few); RBC,Urine 0-3 per hpf (0-3); Squamous Epithelial Cell,Urine Many per lpf (None-Few)
[2019-02-18] MEDS ORDERED: Ipratropium/Albuterol Neb 3 ML IH ONE (20:42)
--- NOTE | 2019-02-18 21:25 | AcuteCare Surgery Consult Note ---
Date of Encounter: 02/18/19 Time of Encounter: 21:21 Assessment and Plan (1) Epigastric abdominal pain Current Visit: Yes Status: Acute 83F witih multiple cardiac comorbidities who presents with epigastric abdominal pain concerning for chronic cholecystitis vs symptomatic cholelithiasis; non peritoneal, non septic; due to the patient's comorbidities I, as well as the family, feel that surgery right away may not be the best decision; NPO IVF IV ABX cardiac evaluation serial exams; if pain persists or gets worse, then will discuss options including cholecystostomy tube vs surgery if pain resolves, then recommend holding on surgery will re-evaluate in the morning cares per primary team History of Present Illness Consult date: 02/18/19 History of present illness: 83F PMh significant for atrial fibrillation, cardiomyopathy, coronary artery disease, hyperlipidemia, hypertension, TIA who presents with SOB x 4 days has progressively gotten worse. In addition she has chest pain which then radiates to her back. Cardiac work up in the ED was not clear for cardiac pathology. W hen talking more to the patient she has been having epigastric abdominal pain with radiation to the back for the past 4 months. No identifiable alleviating or exacerbating factors and no identifiable precipitating event. The patient is a poor historian, but her family is helpful. A CT scan was obtained which demonstreated thickening around the gallbladder as well as thickening of the distal stomach and duodenum. An US was obtained which did not confirm stone, but did show wall thickenig and pericholecystic fluid. WBC wnl. NO reports of fevers, chills, nausea, vomiting or other concerning symptoms. Surgery was consulted to evaluate for gallbladder disease. Of note, her last echo demonstrated EF ~ 65% but also demonstrated cardiomyopathy; Past Med Surg Social Fam HX - Past Medical History Medical history: atrial fibrillation, cardiomyopathy, coronary artery disease, hyperlipidemia, hypertension, TIA, other Additional medical history: LIPOMA. ANEMIA. SKIN CANCER Psychiatric history: no psych history - Past Surgical History Surgical History: coronary bypass (CABG), pacemaker/AICD, thyroidectomy - Social History Smoking Status: Former smoker Smokeless Tobacco Status: No Alcohol use: none Drug use: none - Family History Brother Living Status: Still Living Hx Family Cardiac Disorders: Yes Son Living Status: Still Living Hx Family Cardiac Disorders: Yes Mother Hx Family Cardiac Disorders: Yes (CAD, Bypass, HTN, CT) Hx Family Respiratory Disorders: No Hx Family Cancer: No Hx Family GI Disorders: No Hx Family Endocrine Disorder: No Hx Family Neuromuscular Disorders: No Hx Family Neurologic Disorders: Yes (Dementia) Hx Family HEENT Disorders: No Hx Family Autoimmune Disorders: No Medications and Allergies Clopidogrel [Plavix] 75 mg PO DAILY 01/12/16 [History] Digoxin [Lanoxin] 0.125 mg PO DAILY 01/12/16 [History] Metoprolol Tartrate [Lopressor] 50 mg PO BID 01/12/16 [History] carBAMazepine [Tegretol] 200 mg PO BID 01/12/16 [History] Cholecalciferol (D-3) [Vitamin D] 1,000 unit PO DAILY 08/10/16 [History] Multivit-Min/Folic Acid/Vit K1 [Multi For Her 50 Plus Softgel] 1 each PO DAILY 08/10/16 [History] Atorvastatin [Lipitor] 40 mg PO DAILY 10/03/18 [History] Albuterol Sulfate [Ventolin Hfa] 2 puff IH Q6H PRN 02/18/19 [History] Fenofibrate Nanocrystallized [Fenofibrate] 145 mg PO DAILY 02/18/19 [History] Levothyroxine Sodium 112 mcg PO QAM 02/18/19 [History] Nitroglycerin [Nitrostat] 0.4 mg PO AD PRN 02/18/19 [History] Allergy/AdvReac Type Severity Reaction Status Date / Time Amoxicillin Allergy Hives Verified 10/03/18 19:36 phenytoin [From Dilantin] Allergy Hives Verified 10/03/18 19:36 Sulfa (Sulfonamide Allergy See Verified 10/03/18 19:36 Antibiotics) Comments vancomycin Allergy Hives Verified 10/03/18 19:36 Review of Systems All systems PM: 12 point ROS negative besides HPI findings General Surgery Exam Initial Vital Signs Temp Pulse Resp BP Pulse Ox 97.3 F L 66 18 116/62 96 02/18/19 16:51 02/18/19 16:51 02/18/19 16:51 02/18/19 16:51 02/18/19 16:51 - General physical appearance no distress - Eyes PERRL, normal ocular movement - ENT normocephalic - Neck trachea midline, no lymphadectomy - Respiratory normal expansion, normal respiratory effort - Cardiovascular Cardiovascular exam: Present: RRR (paced) - Abdomen Abdomen general surgery: Present: soft, tender Abdominal Tenderness: Present: epigastic ( non peritoneal; (-)angulo's sign), RUQ - Integumentary Integumentary general surgery: Present: warm and dry - Neurologic Present: CN 2-12 grossly intact - Musculoskeletal Present: normal posture - Psychiatric Psychiatric general surgery: Present: A&Ox3 Exam Initial Vital Signs Temp Pulse Resp BP Pulse Ox 97.3 F L 66 18 116/62 96 02/18/19 16:51 02/18/19 16:51 02/18/19 16:51 02/18/19 16:51 02/18/19 16:51 Results - Labs 02/18/19 17:30 02/18/19 17:30 Abnormal lab results RBC 3.67 M/mcL (3.82-4.97) L 02/18/19 17:30 RDW 15.9 % (11.5-14.5) H 02/18/19 17:30 Plt Count 95 K/mcL (140-400) L 02/18/19 17:30 PT 16.2 Seconds (9.4-12.1) H 02/18/19 17:30 Potassium 3.2 mEq/L (3.5-5.1) L 02/18/19 17:30 BUN 42 mg/dL (8-23) H 02/18/19 17:30 Est GFR ( Amer) 54 (> 60) L 02/18/19 17:30 Est GFR (Non-Af Amer) 45 (> 60) L 02/18/19 17:30 37 (6-26) H 02/18/19 17:30 Glucose 198 mg/dL (70-105) H 02/18/19 17:30 306 (280-300) H 02/18/19 17:30 AST 72 Units/L (13-39) H 02/18/19 17:30 0.31 ng/mL (< 0.04) H* 02/18/19 17:30 B-Natriuretic Peptide 1132 pg/mL (Less than 100) H 02/18/19 17:30 2.3 g/dL (2.4-3.5) L 02/18/19 17:30 Ur Specific Sandwich > 1.030 (1.010-1.025) H 02/18/19 19:56 Ur Leukocyte Esterase Small (Negative) H 02/18/19 19:56 5-15 per hpf (0-3) H 02/18/19 19:56 Ur Squamous Epith Cells Many per lpf (None-Few) H 02/18/19 19:56 Ur Culture Indicated? YES (NO) A 02/18/19 19:56 Diabetes panel 02/18/19 Range/Units 17:30 Sodium 140 (136-145) mEq/L Potassium 3.2 L (3.5-5.1) mEq/L Chloride 106 (98-107) mEq/L Carbon Dioxide 27 (23-29) mEq/L BUN 42 H (8-23) mg/dL Creatinine 1.15 (0.60-1.20) mg/dL Glucose 198 H (70-105) mg/dL Calcium 9.1 (8.6-10.3) mg/dL AST 72 H (13-39) Units/L ALT 40 (7-52) Units/L Alkaline Phosphatase 72 (34-104) Units/L Albumin 4.4 (3.5-5.7) g/dL Calcium panel 02/18/19 Range/Units 17:30 Calcium 9.1 (8.6-10.3) mg/dL Albumin 4.4 (3.5-5.7) g/dL Pituitary panel 02/18/19 Range/Units 17:30 Sodium 140 (136-145) mEq/L Potassium 3.2 L (3.5-5.1) mEq/L Chloride 106 (98-107) mEq/L Carbon Dioxide 27 (23-29) mEq/L BUN 42 H (8-23) mg/dL Creatinine 1.15 (0.60-1.20) mg/dL Glucose 198 H (70-105) mg/dL Calcium 9.1 (8.6-10.3) mg/dL Adrenal panel 02/18/19 Range/Units 17:30 Sodium 140 (136-145) mEq/L Potassium 3.2 L (3.5-5.1) mEq/L Chloride 106 (98-107) mEq/L Carbon Dioxide 27 (23-29) mEq/L BUN 42 H (8-23) mg/dL Creatinine 1.15 (0.60-1.20) mg/dL Glucose 198 H (70-105) mg/dL Calcium 9.1 (8.6-10.3) mg/dL Total Bilirubin 0.6 (0.3-1.0) mg/dL AST 72 H (13-39) Units/L ALT 40 (7-52) Units/L Alkaline Phosphatase 72 (34-104) Units/L Albumin 4.4 (3.5-5.7) g/dL All other labs normal. - Imaging CT scan - abdomen: report reviewed, image reviewed CT scan - pelvis: report reviewed, image reviewed US - abdomen: report reviewed, image reviewed Consult Discharge Plan - Plan Referrals: NONE,PCP [Primary Care Provider] -
--- NOTE | 2019-02-19 00:12 | Internal Med History&Physical ---
<Carrington Lincoln S - Last Filed: 02/19/19 02:28> Date of Encounter: 02/19/19 Time of Encounter: 02:28 Internal Medicine - H&P: HPI Chief complaint: chest pain Admitted From: Home Plans for Post Hospital Care: Home History of present illness: Ms. Shultz is a 83 year old female with PMH of a fib, CAD, CHF, s/p CABG, hx of TIA, HTN, and HLD. She presents from home to the ER with the complaint of shortness of breath for 4 days. She always has SOB but now it has begun to increasingly get worser. It occurs on exertion, relieved by rest. She also complains of nonspecific chest pain that she says is a ripping chest pain across her chest rated as an 8/10 that radiates into back and arm. No associated diaphoresis. She has had some nausea but no vomiting. She also c/o abdominal pain mostly in the upper part of her abdomen. She has never experienced pain like this before. She denies hematuria, dysuria, urinary frequency. The daughter reported to ER physician states that the patient is very confused and is not acting her normal self, the patient confirms this and states that she is having trouble describing her symptoms. When I evaluated the pt there was no family present. The pt was sent for CT dissection study and US of the abd, which showed possible cholecystitis. Acute care surgery was consulted who evaluated the patient. She was given a dose of aztrenam in the ER. The pt was accepted for admission and will be further evaluated. Past Med Surg Social Fam HX - Past Medical History Medical history: atrial fibrillation, cardiomyopathy, coronary artery disease, hyperlipidemia, hypertension, myocardial infarction, TIA, other Additional medical history: LIPOMA. ANEMIA. SKIN CANCER Psychiatric history: no psych history - Past Surgical History Surgical History: coronary bypass (CABG), pacemaker/AICD, thyroidectomy - Social History Smoking Status: Former smoker Smokeless Tobacco Status: No Alcohol use: none Drug use: none - Family History Brother Living Status: Still Living Hx Family Cardiac Disorders: Yes Son Living Status: Still Living Hx Family Cardiac Disorders: Yes Mother Hx Family Cardiac Disorders: Yes (CAD, Bypass, HTN, HI) Hx Family Respiratory Disorders: No Hx Family Cancer: No Hx Family GI Disorders: No Hx Family Endocrine Disorder: No Hx Family Neuromuscular Disorders: No Hx Family Neurologic Disorders: Yes (Dementia) Hx Family HEENT Disorders: No Hx Family Autoimmune Disorders: No Internal Medicine - H&P: Meds Clopidogrel [Plavix] 75 mg PO DAILY 01/12/16 [History] Digoxin [Lanoxin] 0.125 mg PO DAILY 01/12/16 [History] Metoprolol Tartrate [Lopressor] 50 mg PO BID 01/12/16 [History] carBAMazepine [Tegretol] 200 mg PO BID 01/12/16 [History] Cholecalciferol (D-3) [Vitamin D] 1,000 unit PO DAILY 08/10/16 [History] Multivit-Min/Folic Acid/Vit K1 [Multi For Her 50 Plus Softgel] 1 each PO DAILY 08/10/16 [History] Atorvastatin [Lipitor] 40 mg PO DAILY 10/03/18 [History] Albuterol Sulfate [Ventolin Hfa] 2 puff IH Q6H PRN 02/18/19 [History] Fenofibrate Nanocrystallized [Fenofibrate] 145 mg PO DAILY 02/18/19 [History] Levothyroxine Sodium 112 mcg PO QAM 02/18/19 [History] Nitroglycerin [Nitrostat] 0.4 mg PO AD PRN 02/18/19 [History] Allergy/AdvReac Type Severity Reaction Status Date / Time Amoxicillin Allergy Hives Verified 10/03/18 19:36 phenytoin [From Dilantin] Allergy Hives Verified 10/03/18 19:36 Sulfa (Sulfonamide Allergy See Verified 10/03/18 19:36 Antibiotics) Comments vancomycin Allergy Hives Verified 10/03/18 19:36 All Systems PM: A 10-system review of systems was performed and is negative for pertinent findings except as documented above in the HPI. - Constitutional Constitutional: chills, fever(s), lethargy - EENT Eyes: no blurry vision, no change in vision Ears: no tinnitus - Cardiovascular Cardiovascular ROS IM: chest pain, dyspnea, dyspnea on exertion, no irregular heart rhythm, no palpitations - Respiratory Respiratory: dyspnea, dyspnea on exertion, no cough, no chest congestion - Gastrointestinal Gastrointestinal: abdominal pain, nausea, no diarrhea, no vomiting - Genitourinary Genitourinary: no hematuria, no urinary frequency, no urinary hesitancy, no urinary urgency - Musculoskeletal Musculoskeletal ROS IM: back pain, neck pain, stiffness, no numbness, no tingling - Integumentary Integumentary IM: no rash, no skin ulcer - Neurological Neurological ROS: weakness, no numbness, no tingling - Psychiatric Psychiatric: confusion - Endocrine Endocrine IM: fatigue - Hematologic/Lymphatic Hematologic/Lymphatic: no easy bleeding, no easy bruising - Constitutional Vitals: Temp Pulse Resp BP Pulse Ox 98.5 F 75 16 143/72 98 02/18/19 23:24 02/18/19 23:24 02/18/19 23:24 02/18/19 23:24 02/18/19 23:24 Exam: general - aox1, pleasantly confused, NAD, laying in bed without distress heent - ncat, dry MM, no scleral icterus neck - supple, no jvd cardio - rrr,s1s2 cta no mrg lungs - decreased breath sounds no wheeze/rhonchi/rales noted abd - mild TTP ruq/luq/epigastric region, no rebound or guarding, no peritoneal signs, multiple surgical scars extremities - no pitting edema, moves all extremities equally w/o difficulty skin - warm,dry,intact psych - confused elderly female neuro - no fnd, aox1, sensation intact, strengh diminished thruoutght Internal Med - H&P Results - Labs CBC & Chem 7: 02/19/19 01:09 02/18/19 17:30 Labs: Short CBC 02/18/19 Range/Units 17:30 WBC 6.7 (4.3-11.1) K/mcL Hgb 11.6 (11.5-15.4) g/dL Hct 35.4 (35.3-44.9) % Plt Count 95 L (140-400) K/mcL Neutrophils # 4.7 (1.6-8.9) K/mcL BMP 02/18/19 17:30 Sodium 140 Potassium 3.2 L Chloride 106 Carbon Dioxide 27 BUN 42 H Creatinine 1.15 Glucose 198 H Calcium 9.1 Cardiac Enzymes 02/18/19 Range/Units 17:30 Troponin I 0.31 H* (< 0.04) ng/mL Liver Function 02/18/19 Range/Units 17:30 Total Bilirubin 0.6 (0.3-1.0) mg/dL Direct Bilirubin 0.2 (0.0-0.2) mg/dL AST 72 H (13-39) Units/L ALT 40 (7-52) Units/L Alkaline Phosphatase 72 (34-104) Units/L Albumin 4.4 (3.5-5.7) g/dL Urine 02/18/19 Range/Units 19:56 Urine Color Yellow (Yellow) Urine Clarity Clear (Clear) Urine pH 6.0 (5.0-8.0) pH Units Ur Specific Liscomb > 1.030 H (1.010-1.025) Urine Protein Trace (Neg-Trace) mg/dL Urine Glucose (UA) Normal (Normal) mg/dL - Impressions ITS Impressions Chest X-Ray 02/18/19 17:21 IMPRESSION: 1. No acute airspace consolidation. 2. Stable cardiomegaly and chronic pulmonary vascular congestion, without overt edema or CHF. D/ / 02/18/2019 17:43:08 Damien Vera MD / [facility] Interpreting Provider: Damien Vera MD Dissection 02/18/19 17:42 IMPRESSION: No evidence of aortic dissection. Nonspecific ground-glass opacity within the lungs, obscured by motion artifact, possibly related to atelectasis. Correlation for edema is recommended. Distended gallbladder containing tiny stones in showing wall thickening adjacent stranding most compatible with acute cholecystitis. There is wall thickening and increased mucosal enhancement of the distal gastric antrum and duodenum also suggesting inflammation. D/ / Geno Hinkle Cha, MD / Geno Hinkle Cha, MD Interpreting Provider: Geno Hinkle Cha, MD Head CT 02/18/19 17:48 IMPRESSION: No acute intracranial abnormality. D/ / Damien Turner MD / Damien Turner MD Interpreting Provider: Damien Turner MD Abdomen Ultrasound 02/18/19 19:46 IMPRESSION: Findings in correlation with the CT study consistent with acute cholecystitis. The tiny gallstone noted by CT was not visualized by ultrasound. There was evidence of thick bile/sludge. Mild diffuse fatty infiltration of the liver. D/ / Harish Reece MD / Harish Reece MD Interpreting Provider: Harish Reece MD - Assessment and Plan (1) Acute cholecystitis Current Visit: Yes Status: Acute Assessment and plan: Pt presenting with epigastric abdominal pain Abd US showed: - Findings in correlation with the CT study consistent with acute cholecystitis. - The tiny gallstone noted by CT was not visualized by ultrasound. - There was evidence of thick bile/sludge. CT dissection scan: - Distended gallbladder containing tiny stones in showing wall thickening adjacent stranding most compatible with acute cholecystitis. Acute surgery contacted by ER physician, who did not suggest immediate intervention - if pain persists/increases, they will discuss cholecystostomy tube vs surgery - if pain resolves, they recommend holding off on surgery Plan: - acute surgery consulted, appreciate recommendations ?cholecystostomy tube vs sx recommending cardiac clearance workup recommended abx - continue aztreonam and flagyl day 1 - cardiology consulted for pre-op evaluation ECHO pending EKG as above - telemetry monitoring - NPO - 100cc/hr 0.9% NS, 500cc total - blood cx pending - FEN: NPO, IVF as above - DVT prophylaxis: SCD, heparin C/I due to acute hemorrhagic bleed in the past - disposition: sx recommendations, cardiology recommendations (2) Congestive heart failure Current Visit: No Status: Chronic Assessment and plan: Mild exacerbation. BNP 1132, XR chest showed pulmonary vascular congestion. ECHO from 09/2018 LVEF 65%. Mild segmental left ventricular systolic dysfunction. 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 Mildly dilated left atrium. Normal right ventricular structure and function. Plan: - strict I&O - spot diuresis as needed - fluid restriction when cleared for PO intake - pt to get pre-op cardiac evaluation cardiology consulted ECHO pending Qualifiers: Heart failure type: systolic Heart failure chronicity: unspecified Qualified Code(s): I50.20 - Unspecified systolic (congestive) heart failure (3) UTI (urinary tract infection) Current Visit: Yes Status: Acute Assessment and plan: UA positive for leukocyte esterase, WBC, squamous cells - cx pending - abx as above Qualifiers: Urinary tract infection type: acute cystitis Hematuria presence: with hematuria Qualified Code(s): N30.01 - Acute cystitis with hematuria (4) Acute metabolic encephalopathy Current Visit: Yes Status: Acute Assessment and plan: Likely secondary to infxn. CT head negative for acute abnormality. (5) Hypothyroid Current Visit: No Status: Chronic Assessment and plan: chronic, continue home synthroid. Qualifiers: Hypothyroidism type: acquired Qualified Code(s): E03.9 - Hypothyroidism, unspecified (6) Hyperlipidemia Current Visit: No Status: Chronic Assessment and plan: chronic, continue home fenofibrate and lipitor. Qualifiers: Hyperlipidemia type: unspecified Qualified Code(s): E78.5 - Hyperlipidemia, unspecified (7) Seizure disorder Current Visit: No Status: Chronic Assessment and plan: chronic, continue home tegretol. (8) Hypertension, essential Current Visit: No Status: Chronic Assessment and plan: chronic, continue home meds. (9) DVT prophylaxis Current Visit: No Status: Acute Assessment and plan: scd, heparin c/i. 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 She is not currently on blood thinners. (10) Elevated troponin Current Visit: Yes Status: Acute Assessment and plan: Troponin on admission 0.31, repeat 0.32. Trend x2 more times. Likely type 2 in the setting of demand ischemia ECHO pending. Nitroglycerin drip ordered for chest pain as per ER physician. Cardiology consulted as above. (11) Epigastric abdominal pain Current Visit: Yes Status: Acute Assessment and plan: Secondary to acute cholecystitis. See plan as above. (12) Hypokalemia Current Visit: Yes Status: Acute Assessment and plan: Potassium 3.2 on admsision, replaced. (13) Hypomagnesemia Current Visit: Yes Status: Acute Assessment and plan: Mag 1.5, replaced. - Time Spent With Patient Total time spent is greater than 50% in coordination of care (as documented) at patient's floor/unit and/or counseling patient: 25 - 35 minutes <Mk Pham - Last Filed: 02/19/19 04:56> Date of Encounter: 02/19/19 Internal Medicine - H&P: HPI History of present illness: Ms. Carrington is a 83 year old female All Systems PM: A 10-system review of systems was performed and is negative for pertinent findings except as documented above in the HPI. - Constitutional Vitals: Temp Pulse Resp BP Pulse Ox 98.5 F 75 16 143/72 97 02/18/19 23:24 02/18/19 23:24 02/18/19 23:24 02/18/19 23:24 02/19/19 00:35 Internal Med - H&P Results - Labs CBC & Chem 7: 02/19/19 01:09 02/19/19 01:09 Labs: Short CBC 02/18/19 02/19/19 Range/Units 17:30 01:09 WBC 6.7 5.7 (4.3-11.1) K/mcL Hgb 11.6 11.4 L (11.5-15.4) g/dL Hct 35.4 35.4 (35.3-44.9) % Plt Count 95 L 94 L (140-400) K/mcL Neutrophils # 4.7 (1.6-8.9) K/mcL BMP 02/18/19 02/19/19 17:30 01:09 Sodium 140 140 Potassium 3.2 L 3.4 L Chloride 106 104 Carbon Dioxide 27 27 BUN 42 H 38 H Creatinine 1.15 1.07 Glucose 198 H 137 H Calcium 9.1 8.8 Cardiac Enzymes 02/18/19 02/19/19 Range/Units 17:30 01:09 Troponin I 0.31 H* 0.32 H* (< 0.04) ng/mL Liver Function 02/18/19 Range/Units 17:30 Total Bilirubin 0.6 (0.3-1.0) mg/dL Direct Bilirubin 0.2 (0.0-0.2) mg/dL AST 72 H (13-39) Units/L ALT 40 (7-52) Units/L Alkaline Phosphatase 72 (34-104) Units/L Albumin 4.4 (3.5-5.7) g/dL Urine 02/18/19 Range/Units 19:56 Urine Color Yellow (Yellow) Urine Clarity Clear (Clear) Urine pH 6.0 (5.0-8.0) pH Units Ur Specific Liscomb > 1.030 H (1.010-1.025) Urine Protein Trace (Neg-Trace) mg/dL Urine Glucose (UA) Normal (Normal) mg/dL - Impressions ITS Impressions Chest X-Ray 02/18/19 17:21 IMPRESSION: 1. No acute airspace consolidation. 2. Stable cardiomegaly and chronic pulmonary vascular congestion, without overt edema or CHF. D/ / 02/18/2019 17:43:08 Damien Vera MD / [facility] Interpreting Provider: Damien Vera MD Dissection 02/18/19 17:42 IMPRESSION: No evidence of aortic dissection. Nonspecific ground-glass opacity within the lungs, obscured by motion artifact, possibly related to atelectasis. Correlation for edema is recommended. Distended gallbladder containing tiny stones in showing wall thickening adjacent stranding most compatible with acute cholecystitis. There is wall thickening and increased mucosal enhancement of the distal gastric antrum and duodenum also suggesting inflammation. D/ / Geno Hinkle Cha, MD / Geno Hinkle Cha, MD Interpreting Provider: Geno Hinkle Cha, MD Head CT 02/18/19 17:48 IMPRESSION: No acute intracranial abnormality. D/ / Damien Turner MD / Damien Turner MD Interpreting Provider: Damien Turner MD Abdomen Ultrasound 02/18/19 19:46 IMPRESSION: Findings in correlation with the CT study consistent with acute cholecystitis. The tiny gallstone noted by CT was not visualized by ultrasound. There was evidence of thick bile/sludge. Mild diffuse fatty infiltration of the liver. D/ / Harish Reece MD / aHrish Reece MD Interpreting Provider: Harish Reece MD - Time Spent With Patient Total time spent is greater than 50% in coordination of care (as documented) at patient's floor/unit and/or counseling patient: - Attending Attestation I saw and evaluated the patient. I reviewed the residents note, performed my own physical examination and agree with findings and plan as documented in the residents note. Patient seen and examined on 02/19/19. Patient presents with abdominal pain and chest pain, likely related to findings of cholecystitis. Elevated troponin as well, but has history of elevated troponin in the past. Will hold off on heparin drip as patient has history of brain bleed in the past. Surgery evaluated patient, and will continue to follow. Recommended IV antibiotics, cardiac eval, NPO. Patient received Aztreonam in the ER, we will add flagyl as well. Patient currently denies chest pain. On nitro drip. Wheezy on my exam, will try Duoneb treatment. O2 saturations in the mid 90's.
[2019-02-19] MEDS ORDERED: Ondansetron 4 MG/2 ML VIAL IVP PRN (00:48)
[2019-02-19] MEDS ORDERED: Naloxone 0.4 MG/ML INJ IVP PRN (00:48)
[2019-02-19] MEDS ORDERED: *HR* Dextrose 50 % in Water (Syg) 50 ML SYRINGE IVP PRN (00:53)
[2019-02-19] MEDS ORDERED: Dextrose Gel 15 GM/37.5 ML TUBE PO PRN ×2 (00:53)
[2019-02-19] MEDS ORDERED: D5% in Water 1,000 ML IVC PRN (00:53)
[2019-02-19] MEDS ORDERED: 0.9 % Sodium Chloride 1,000 ML IVC SCH (01:30)
[2019-02-19 01:47] LABS: Hematocrit 35.4 % (35.3-44.9); Hemoglobin 11.4 g/dL (11.5-15.4); Mean Corpuscular HGB Conc 32.2 g/dL (31.6-35.5); Mean Corpuscular Hemoglobin 31.1 pg (28.0-33.3)
[2019-02-19 01:49] LABS: Immature Platelets 3.9 % (1.1-6.1); Mean Corpuscular Volume 96.7 fL (83.0-100.0); Mean Platelet Volume 10.4 fL (9.4-12.4); Red Blood Count 3.66 M/mcL (3.82-4.97); Red Cell Distribution Width 15.9 % (11.5-14.5)
[2019-02-19] MEDS: Insulin LISPRO 300 UNITS/3 ML VIAL SQ SCH ×5 (02:54→22:54)
[2019-02-19] MEDS ORDERED: 0.9 % Sodium Chloride 500 ML IVC SCH (03:00)
[2019-02-19 03:55] LABS: Calcium 8.8 mg/dL (8.6-10.3); Digoxin 1.7 ng/mL (0.8-2.0); Potassium 3.4 mEq/L (3.5-5.1)
[2019-02-19] MEDS ORDERED: Ipratropium/Albuterol Neb 3 ML IH ONE (04:59)
[2019-02-19] MEDS: MetroNIDAZOLE 500 MG/100 ML 500 MG/100 ML BAG IVPB SCH ×3 (05:38→20:01)
[2019-02-19] MEDS ORDERED: Aztreonam 500 MG in 0.9 % Sodium Chloride 50 ML IVPB SCH (08:00)
--- NOTE | 2019-02-19 08:40 | Event Note ---
Date of Encounter: 02/19/19 Time of Encounter: 08:33 Patient seen and examined this morning at bedside. No overnight events. Admitted overnight for abdominal pain chest pain. Very sleepy this morning, not complete cooperative with questions. Denies any pain or difficulty breathing. General: In no acute distress. Respiratory exam: CTAB. no accessory muscle use, rales, rhonchi, wheezes Cardiovascular exam: RRR, +S1, +S2. no murmur, gallop, rubs. GI/Abdominal exam: Non-tender, Non-distended, soft, no peritoneal signs. scars from previous surgery noted Extremities exam: no pedal edema, pulses palpable in b/l lower extremities. no calf tenderness Neurological exam: not fully operative as she wants to sleep, no gross focal deficits as moving all limbs. Skin exam: No skin rash A/P - c/w NPO. - chest pain free on nitro drip. trop downtrending. Not on Heparin due to previous brain bleed. f/u ECHO. appreciate cardiology input - c/w empiric antibiotics for cholecystitis. surgery consulted - elevated bnp and congestion on CXR/CT. got dose of lasix. Hold for now.
[2019-02-19] MEDS ORDERED: Aspirin 81 MG TAB.CHEW PO SCH (09:00)
--- NOTE | 2019-02-19 09:01 | Electrocardiograph Report ---
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
[2019-02-19] MEDS: *HR* Digoxin 0.125 MG TABLET PO SCH (09:40)
[2019-02-19] MEDS: Fenofibrate 54 MG TABLET PO SCH (09:40)
[2019-02-19] MEDS: carBAMazepine 200 MG TABLET PO SCH ×2 (09:40→20:02)
[2019-02-19] MEDS: Nystatin POWDER 30 GM BOTTLE TP SCH ×2 (09:41→20:03)
--- NOTE | 2019-02-19 10:20 | AcuteCareSurgery Progress Note ---
<Norma Baker - Last Filed: 02/19/19 10:17> Date of Encounter: 02/19/19 Time of Encounter: 08:00 - Assessment and Plan (1) Epigastric abdominal pain Current Visit: Yes Status: Acute Her abdominal discomfort has completely resolved. She appears to be responding to antibiotics. As previously noted her cardiac comorbidities limit the harvinder mmendations for surgical intervention. From a surgical standpoint she is okay to begin a full liquid diet and advanced diet as tolerated. Surgery will follow from a distance. Please call if any urgent questions or needs arise. Subjective Patient reports: no new complaints, pain is less, voiding w/o difficulty, afebrile Narrative: Denies abdominal pain. Objective Vital Signs - Last 8 Hours Temp Pulse Resp BP Pulse Ox 02/19/19 07:05 98.5 F 65 14 122/72 93 02/19/19 06:18 16 98 02/19/19 05:10 98.4 F 71 18 133/65 98 Intake and Output 02/18/19 02/19/19 02/19/19 23:59 07:59 15:59 Intake Total 0 / 0 104 / 104 0 / 104 Output Total 200 / 200 Balance 0 / 0 -96 / -96 0 / -96 Intake: IV Fluids 104 / 104 Magnesium Sulfate 2 GM In 0.9 % 104 / 104 Sodium Chloride 100 ML @ 104 mls/hr IVPB ONCE ONE Rx#: [id number] Oral 0 / 0 0 / 0 0 / 0 Output: Urine 200 / 200 Other: Meal Breakfast Percent of Meal Consumed 0% # Voids 0 0 Weight 64.3 kg Blood Glucose* 137 - General physical appearance no distress - ENT atraumatic, normocephalic - Neck Neck exam: trachea midline - Respiratory normal expansion, normal respiratory effort - Cardiovascular Cardiovascular exam: Present: RRR Addtional Comments: Nitro gtt noted - Abdomen Abdomen: Present: bowel sounds present, soft, non tender - Integumentary no rash - Neurologic normal sensation - Musculoskeletal normal posture - Psychiatric oriented to time, oriented to person, oriented to place - Labs 02/19/19 01:09 02/19/19 01:09 Diabetes panel 02/18/19 02/19/19 Range/Units 17:30 01:09 Sodium 140 140 (136-145) mEq/L Potassium 3.2 L 3.4 L (3.5-5.1) mEq/L Chloride 106 104 (98-107) mEq/L Carbon Dioxide 27 27 (23-29) mEq/L BUN 42 H 38 H (8-23) mg/dL Creatinine 1.15 1.07 (0.60-1.20) mg/dL Glucose 198 H 137 H (70-105) mg/dL Calcium 9.1 8.8 (8.6-10.3) mg/dL AST 72 H (13-39) Units/L ALT 40 (7-52) Units/L Alkaline Phosphatase 72 (34-104) Units/L Albumin 4.4 (3.5-5.7) g/dL Calcium panel 02/18/19 02/19/19 Range/Units 17:30 01:09 Calcium 9.1 8.8 (8.6-10.3) mg/dL Albumin 4.4 (3.5-5.7) g/dL Pituitary panel 02/18/19 02/19/19 Range/Units 17:30 01:09 Sodium 140 140 (136-145) mEq/L Potassium 3.2 L 3.4 L (3.5-5.1) mEq/L Chloride 106 104 (98-107) mEq/L Carbon Dioxide 27 27 (23-29) mEq/L BUN 42 H 38 H (8-23) mg/dL Creatinine 1.15 1.07 (0.60-1.20) mg/dL Glucose 198 H 137 H (70-105) mg/dL Calcium 9.1 8.8 (8.6-10.3) mg/dL Adrenal panel 02/18/19 02/19/19 Range/Units 17:30 01:09 Sodium 140 140 (136-145) mEq/L Potassium 3.2 L 3.4 L (3.5-5.1) mEq/L Chloride 106 104 (98-107) mEq/L Carbon Dioxide 27 27 (23-29) mEq/L BUN 42 H 38 H (8-23) mg/dL Creatinine 1.15 1.07 (0.60-1.20) mg/dL Glucose 198 H 137 H (70-105) mg/dL Calcium 9.1 8.8 (8.6-10.3) mg/dL Total Bilirubin 0.6 (0.3-1.0) mg/dL AST 72 H (13-39) Units/L ALT 40 (7-52) Units/L Alkaline Phosphatase 72 (34-104) Units/L Albumin 4.4 (3.5-5.7) g/dL Consult Discharge Plan - Plan Referrals: NONE,PCP [Primary Care Provider] - <Abdirashid Loredo - Last Filed: 02/19/19 13:35> Date of Encounter: 02/19/19 Objective Vital Signs - Last 8 Hours Temp Pulse Resp BP Pulse Ox 02/19/19 11:31 98.2 F 72 14 121/57 97 02/19/19 07:05 98.5 F 65 14 122/72 93 02/19/19 06:18 16 98 Intake and Output 02/18/19 02/19/19 02/19/19 23:59 07:59 15:59 Intake Total 0 / 0 204 / 204 0 / 204 Output Total 200 / 200 0 / 200 Balance 0 / 0 4 / 4 0 / 4 Intake: IV Fluids 204 / 204 Magnesium Sulfate 2 GM In 0.9 % 104 / 104 Sodium Chloride 100 ML @ 104 mls/hr IVPB ONCE ONE Rx#: [id number] Flagyl Premix 500 MG/100 ML 500 100 / 100 mg In 100 ml @ 100 mls/hr IVPB Q6HR [facility] Rx#:[id number] Oral 0 / 0 0 / 0 0 / 0 Output: Urine 200 / 200 0 / 200 Other: Meal Breakfast Percent of Meal Consumed 0% # Voids 0 0 Weight 64.3 kg Blood Glucose* 137 - Labs 02/19/19 01:09 02/19/19 01:09 Diabetes panel 02/18/19 02/19/19 Range/Units 17:30 01:09 Sodium 140 140 (136-145) mEq/L Potassium 3.2 L 3.4 L (3.5-5.1) mEq/L Chloride 106 104 (98-107) mEq/L Carbon Dioxide 27 27 (23-29) mEq/L BUN 42 H 38 H (8-23) mg/dL Creatinine 1.15 1.07 (0.60-1.20) mg/dL Glucose 198 H 137 H (70-105) mg/dL Calcium 9.1 8.8 (8.6-10.3) mg/dL AST 72 H (13-39) Units/L ALT 40 (7-52) Units/L Alkaline Phosphatase 72 (34-104) Units/L Albumin 4.4 (3.5-5.7) g/dL Calcium panel 02/18/19 02/19/19 Range/Units 17:30 01:09 Calcium 9.1 8.8 (8.6-10.3) mg/dL Albumin 4.4 (3.5-5.7) g/dL Pituitary panel 02/18/19 02/19/19 Range/Units 17:30 01:09 Sodium 140 140 (136-145) mEq/L Potassium 3.2 L 3.4 L (3.5-5.1) mEq/L Chloride 106 104 (98-107) mEq/L Carbon Dioxide 27 27 (23-29) mEq/L BUN 42 H 38 H (8-23) mg/dL Creatinine 1.15 1.07 (0.60-1.20) mg/dL Glucose 198 H 137 H (70-105) mg/dL Calcium 9.1 8.8 (8.6-10.3) mg/dL Adrenal panel 02/18/19 02/19/19 Range/Units 17:30 01:09 Sodium 140 140 (136-145) mEq/L Potassium 3.2 L 3.4 L (3.5-5.1) mEq/L Chloride 106 104 (98-107) mEq/L Carbon Dioxide 27 27 (23-29) mEq/L BUN 42 H 38 H (8-23) mg/dL Creatinine 1.15 1.07 (0.60-1.20) mg/dL Glucose 198 H 137 H (70-105) mg/dL Calcium 9.1 8.8 (8.6-10.3) mg/dL Total Bilirubin 0.6 (0.3-1.0) mg/dL AST 72 H (13-39) Units/L ALT 40 (7-52) Units/L Alkaline Phosphatase 72 (34-104) Units/L Albumin 4.4 (3.5-5.7) g/dL - Attending Attestation I have personally performed a face to face evaluation on this patient. I have reviewed and agree with the care plan. History and Exam by me shows: The patient is seen and evaluated on morning rounds with the acute care surgery team. She has no pain in the right upper quadrant. She has a negative physical examination. She is currently on nitroglycerin drip. At this point I would not recommend proceeding with surgery. We will continue with antibiotic therapy. High risk in general anesthetic only in the event of clinical treatment failure Abdirashid Loredo MD FACS
--- NOTE | 2019-02-19 11:28 | Cardiology Consult Note ---
Date of Encounter: 02/19/19 Time of Encounter: 09:30 Assessment and Plan (1) Elevated troponin Current Visit: Yes Status: Acute Per cardiology: -Troponins 0.31, 0.32, 0.26 in the setting of acute cholecystitis. -Denies chest pain. -No acute ischemic ECG changes noted. -TTE 09/2018 with LVEF 65%, segmental wall motion abnormalities noted. -Of note was NSTEMI 09/2018, however patient refused LHC due to previous intracranial hemmorrhage. Reports she was told by neurology not to be on anticogulation or ASA. -LHC 04/2017 with proximal LAD stent patent, Mild LAD disease, HONG to LAD was known to be atretic, 100% proximal circumflex with ipsilateral collaterals, SVG to OM occluded, 80% proximal RCA, 100% mid RCA, SVG to distal RCA with 60% stenosis mid graft and FFR was performed and noted to be 0.85 (not functionally significant). -On asa, plavix. statin. -Current TTE pending. -Demand ischemia. No cardiac rehab consult warranted. If no significant changes on TTE, anticipate cardiology sign off. -Will stop asa, patient refuses to take due to IC hemorrhage. WIll start BB. (2) Preop cardiovascular exam Current Visit: Yes Status: Acute Per cardiology: -pre op risk assessment for possible cholecystectomy. -Recent NSTEMI 09/2018 without LHC. -TTE 09/2018 with preserved LVEF, however wall motion abnormalities were noted. -Elevated troponin this admission. -ECG unchanged from previous. -Poor functional capacity. Unable to achieve 4 mets. -Of note, patient states she will not proceed with surgery. However, is surgery is decided upon, pateint would be at high risk for cardiovascular complications farhan-operatively. Patient and daughter state understanding. Discussion w patient/family: The assessment and plan as outlined above was discussed with the patient and/or family members who expressed understanding and agreement. All questions were answered. Thank you for involving us in the care of your patient. Please call with any questions. Discussed and reviewed with . History of Present Illness Consult date: 02/19/19 Requesting physician: Carrington Lincoln Consult reason: preop Chief complaint: abdominal pain History of present illness: Ms. Shultz is a 83 year old female with a relevant past medical history of [place], CAD s/p CABG and PCI, a.fib, GI bleed, intracranial hemorrhage, anemia, HTN, COPD, GERD, tachybrady syndrome s/p pacemaker, seizures, TIA, hypertrophic cardiomyopathy who presented to [facility] with complaints of epigastric pain that radiated into her back. Patient also reports shortness of breath. Daughter reports patient was also confused at home. Patient has been diagnosed with acute cholecystitis. Patient denies chest pain. Reports shortness of breath. Reports fatigue. Reports not very active at home. Past Med Surg Social Fam HX - Past Medical History Attestation: Yes The following information was validated with the patient. Source: patient, old records reviewed Medical history: atrial fibrillation, cardiomyopathy, coronary artery disease, hyperlipidemia, hypertension, myocardial infarction, TIA, other Additional medical history: LIPOMA. ANEMIA. SKIN CANCER Psychiatric history: no psych history - Past Surgical History Surgical History: coronary bypass (CABG), pacemaker/AICD, thyroidectomy - Social History Smoking Status: Former smoker Smokeless Tobacco Status: No Alcohol use: none Drug use: none - Family History Brother Living Status: Still Living Hx Family Cardiac Disorders: Yes Son Living Status: Still Living Hx Family Cardiac Disorders: Yes Mother Hx Family Cardiac Disorders: Yes (CAD, Bypass, HTN, [place]) Hx Family Respiratory Disorders: No Hx Family Cancer: No Hx Family GI Disorders: No Hx Family Endocrine Disorder: No Hx Family Neuromuscular Disorders: No Hx Family Neurologic Disorders: Yes (Dementia) Hx Family HEENT Disorders: No Hx Family Autoimmune Disorders: No Medications and Allergies Clopidogrel [Plavix] 75 mg PO DAILY 01/12/16 [History] Digoxin [Lanoxin] 0.125 mg PO DAILY 01/12/16 [History] Metoprolol Tartrate [Lopressor] 50 mg PO BID 01/12/16 [History] carBAMazepine [Tegretol] 200 mg PO BID 01/12/16 [History] Cholecalciferol (D-3) [Vitamin D] 1,000 unit PO DAILY 08/10/16 [History] Multivit-Min/Folic Acid/Vit K1 [Multi For Her 50 Plus Softgel] 1 each PO DAILY 08/10/16 [History] Atorvastatin [Lipitor] 40 mg PO DAILY 10/03/18 [History] Albuterol Sulfate [Ventolin Hfa] 2 puff IH Q6H PRN 02/18/19 [History] Fenofibrate Nanocrystallized [Fenofibrate] 145 mg PO DAILY 02/18/19 [History] Levothyroxine Sodium 112 mcg PO QAM 02/18/19 [History] Nitroglycerin [Nitrostat] 0.4 mg PO AD PRN 02/18/19 [History] Allergy/AdvReac Type Severity Reaction Status Date / Time Amoxicillin Allergy Hives Verified 10/03/18 19:36 phenytoin [From Dilantin] Allergy Hives Verified 10/03/18 19:36 Sulfa (Sulfonamide Allergy See Verified 10/03/18 19:36 Antibiotics) Comments vancomycin Allergy Hives Verified 10/03/18 19:36 All Systems Review: The remainder of the systems were reviewed and are negative - Constitutional Constitutional: fatigue - Cardiovascular Cardiovascular: as per HPI, dyspnea on exertion - Gastrointestinal Gastrointestinal: abdominal pain Physical Examination Vital Signs Temperature 97.3 F L 02/18/19 16:51 Pulse Rate 66 02/18/19 16:51 Respiratory Rate 18 02/18/19 16:51 Blood Pressure 116/62 02/18/19 16:51 O2 Sat by Pulse Oximetry 96 02/18/19 16:51 Temperature 98.5 F 02/19/19 07:05 Pulse Rate 65 02/19/19 07:05 Respiratory Rate 14 02/19/19 07:05 Blood Pressure 122/72 02/19/19 07:05 O2 Sat by Pulse Oximetry 93 02/19/19 07:05 Oxygen Delivery Oxygen Delivery Room Air General: Conversant, No Apparent Distress HEENT: Atraumatic, Normocephaly, Mucus Membranes Moist Neck: No JVD, Normal carotid pulses Cardiac: Normal S1 and S2, No Murmur, Other (Irregularly irregular) Lungs: Normal Breath Sounds, No Wheeze, Rales, Rhonchi Neuro: Alert and responsive, No focal deficits noted Abdomen: Soft, Other (Tender to palpation. ) Skin: No rashes noted on visualized skin Musculoskeletal: No Chest Wall Tenderness Extremities: No Clubbing, No Cyanosis, No Edema, Normal Pulses Results 02/19/19 01:09 02/19/19 01:09 Lab Results 02/18/19 02/18/19 02/18/19 17:30 17:30 17:30 WBC 6.7 Hgb 11.6 Hct 35.4 Plt Count 95 L INR 1.4 APTT 30.1 Sodium 140 Potassium 3.2 L Chloride 106 Carbon Dioxide 27 BUN 42 H Creatinine 1.15 Glucose 198 H Calcium 9.1 Magnesium Total Bilirubin 0.6 AST 72 H ALT 40 Alkaline Phosphatase 72 Troponin I 0.31 H* B-Natriuretic Peptide Lipase Impressions Chest X-Ray 02/18/19 17:21 IMPRESSION: 1. No acute airspace consolidation. 2. Stable cardiomegaly and chronic pulmonary vascular congestion, without overt edema or CHF. D/ / 02/18/2019 17:43:08 Damien Vera MD / earnold Interpreting Provider: Damien Vera MD Dissection 02/18/19 17:42 IMPRESSION: No evidence of aortic dissection. Nonspecific ground-glass opacity within the lungs, obscured by motion artifact, possibly related to atelectasis. Correlation for edema is recommended. Distended gallbladder containing tiny stones in showing wall thickening adjacent stranding most compatible with acute cholecystitis. There is wall thickening and increased mucosal enhancement of the distal gastric antrum and duodenum also suggesting inflammation. D/ / Geno Hinkle Cha, MD / Geno Hinkle Cha, MD Interpreting Provider: Geno Hinkle Cha, MD Head CT 02/18/19 17:48 IMPRESSION: No acute intracranial abnormality. D/ / Damien Turner MD / Damien Turner MD Interpreting Provider: Damien Turner MD Abdomen Ultrasound 02/18/19 19:46 IMPRESSION: Findings in correlation with the CT study consistent with acute cholecystitis. The tiny gallstone noted by CT was not visualized by ultrasound. There was evidence of thick bile/sludge. Mild diffuse fatty infiltration of the liver. D/ / Harish Reece MD / Harish Reece MD Interpreting Provider: Harish Reece MD Active Medications Albuterol Sulfate (Albuterol Inhaler) 2 puff IH Q6H PRN PRN Reason: Shortness Of Breath Stop: 08/21/19 01:10 Aspirin (Aspirin) 81 mg PO DAILY [facility] Stop: 08/21/19 09:01 Last Admin: 02/19/19 09:40 Dose: 81 mg Documented by: Atorvastatin Calcium (Lipitor) 40 mg PO DAILY [facility] Stop: 08/21/19 09:01 Last Admin: 02/19/19 09:40 Dose: 40 mg Documented by: Carbamazepine (Tegretol) 200 mg PO BID [facility]; Protocol Stop: 08/21/19 09:01 Last Admin: 02/19/19 09:40 Dose: 200 mg Documented by: Clopidogrel Bisulfate (Plavix) 75 mg PO DAILY [facility] Stop: 08/21/19 09:01 Last Admin: 02/19/19 09:40 Dose: 75 mg Documented by: Dextrose/Water (Dextrose 50% (Syg)) 25 ml IVP AD PRN PRN Reason: Hypoglycemia Stop: 08/21/19 00:54 Digoxin (Lanoxin) 0.125 mg PO DAILY [facility] Stop: 08/21/19 09:01 Last Admin: 02/19/19 09:40 Dose: 0.125 mg Documented by: Fenofibrate (Tricor) 162 mg PO DAILY [facility] Stop: 08/21/19 09:01 Last Admin: 02/19/19 09:40 Dose: 162 mg Documented by: Glucagon (Glucagen) 1 mg IM ONCE PRN PRN Reason: Hypoglycemia Stop: 08/21/19 00:54 Glucose (Gluctose) 15 gm PO ONCE PRN PRN Reason: Hypoglycemia Stop: 08/21/19 00:54 Glucose (Gluctose) 30 gm PO ONCE PRN PRN Reason: Hypoglycemia Stop: 08/21/19 00:54 Nitroglycerin (Nitroglycerin Premix 25 Mg/250 Ml) 25 mg in 250 mls @ 3 mls/hr IVC .Q24H [facility]; Protocol Stop: 08/20/19 18:16 Last Admin: 02/18/19 19:00 Dose: 5 mcg/min, 3 mls/hr Documented by: Dextrose (Dextrose 5%) 1,000 mls @ 100 mls/hr IVC .Q10H PRN PRN Reason: HYPOGLYCEMIA Stop: 08/21/19 00:54 Aztreonam 500 mg/ Sodium (Chloride) 50 mls @ 100 mls/hr IVPB Q8HR [facility] Stop: 08/21/19 08:01 Last Admin: 02/19/19 09:40 Dose: 100 mls/hr Documented by: Metronidazole (Flagyl Premix 500 Mg/100 Ml) 500 mg in 100 mls @ 100 mls/hr IVPB Q6HR [facility] Stop: 08/21/19 06:01 Last Admin: 02/19/19 05:38 Dose: 100 mls/hr Documented by: Insulin Human Lispro (Humalog) 0 units SQ HS [facility]; Protocol Stop: 08/21/19 01:01 Last Admin: 02/19/19 02:54 Dose: Not Given Documented by: Insulin Human Lispro (Humalog) 0 units SQ TIDAC [facility]; Protocol Stop: 08/21/19 07:31 Last Admin: 02/19/19 09:31 Dose: Not Given Documented by: Levothyroxine Sodium (Synthroid) 112 mcg PO 0630 [facility] Stop: 08/21/19 06:31 Last Admin: 02/19/19 05:38 Dose: 112 mcg Documented by: Naloxone HCl (Narcan) 0.4 mg IVP Q2MPRN PRN PRN Reason: SEE COMMENTS Stop: 08/21/19 00:49 Nystatin (Nystop) 1 appl TP BID [facility] Stop: 08/21/19 09:01 Last Admin: 02/19/19 09:41 Dose: Not Given Documented by: Ondansetron HCl (Zofran) 4 mg IVP Q8HR PRN PRN Reason: Nausea And Vomiting Stop: 08/21/19 00:49 Laboratory Tests 10/04/18 02/18/19 02/19/19 09:12 17:30 01:09 Hgb Creatinine Troponin I 2.47 H* 0.31 H* 0.32 H* 02/19/19 02/19/19 02/19/19 01:09 01:09 06:59 Hgb 11.4 L Creatinine 1.07 Troponin I 0.26 H* - Imaging and Cardiology Chest Xray: report reviewed Echo: pending, report reviewed Cardiac cath: report reviewed - EKG Interpretation EKG results cardiology: personally reviewed (ECG with paced rhythm.), other (Telemetry reviewed with average HR previous 12 hours noted to be 74, paced rhythm.) Consult Discharge Plan - Plan Referrals: NONE,PCP [Primary Care Provider] -
--- NOTE | 2019-02-19 12:57 | Event Note ---
Date of Encounter: 02/19/19 Time of Encounter: 12:51 - Cardiology Event Note TTE with LVEF 50-54%. Moderate concentric left ventricular hypertrophy. The right ventricle was not well visualized but appeared grossly normal in size with mild right ventricular hypokinesis. Mild-moderate mitral regurgitation. Moderate-severe tricuspid regurgitation. Severe pulmonary hypertension. No segmental wall motion abnormalities noted. Troponins demand ischemia. No cardiac rehab consult warranted. See cardiology consult note regarding pre-op risk. Cardiology will sign off, will arrange outpatient follow up.
[2019-02-19] MEDS ORDERED: MetroNIDAZOLE 500 MG/100 ML 500 MG/100 ML BAG IVPB SCH (16:00)
[2019-02-19] MEDS: Cefepime HCl 2,000 MG in Water for inj. (sterile) 20 ML 20 ML IVP SCH (17:31)
[2019-02-19] MEDS: Magnesium Oxide 400 MG TABLET PO SCH (20:02)
[2019-02-19] MEDS: diazePAM 2 MG TABLET PO PRN (23:16)
[2019-02-20] MEDS: MetroNIDAZOLE 500 MG/100 ML 500 MG/100 ML BAG IVPB SCH ×3 (03:17→20:09)
[2019-02-20] MEDS: Cefepime HCl 2,000 MG in Water for inj. (sterile) 20 ML 20 ML IVP SCH ×2 (05:53→18:36)
[2019-02-20] MEDS: Nitroglycerin 25 MG/250 ML INFUS..BTL IVC SCH ×2 (07:35→18:37)
[2019-02-20 08:15] LABS: Alanine Aminotransferase 51 Units/L (7-52); Albumin 4.3 g/dL (3.5-5.7); Albumin/Globulin Ratio 1.8 (1.1-2.2); Alkaline Phosphatase 72 Units/L (34-104); Aspartate Amino Transferase 85 Units/L (13-39); BUN/Creatinine Ratio 32 (6-26); Bilirubin,Total 0.6 mg/dL (0.3-1.0); Blood Urea Nitrogen 24 mg/dL (8-23); Calcium 9.3 mg/dL (8.6-10.3); Carbon Dioxide 23 mEq/L (23-29); Chloride 104 mEq/L (98-107); Globulin 2.4 g/dL (2.4-3.5); Glucose 253 mg/dL (70-105); Osmolality,Calculated 297 (280-300); Potassium 4.4 mEq/L (3.5-5.1); Sodium 137 mEq/L (136-145); Total Protein 6.7 g/dL (6.4-8.9); Troponin I 0.34 ng/mL (< 0.04); eGFR For Non-African Americans > 60 (> 60)
[2019-02-20] MEDS: carBAMazepine 200 MG TABLET PO SCH ×2 (08:43→20:10)
[2019-02-20] MEDS: diazePAM 2 MG TABLET PO PRN ×2 (08:43→16:02)
[2019-02-20] MEDS: Insulin LISPRO 300 UNITS/3 ML VIAL SQ SCH ×4 (08:43→22:38)
[2019-02-20] MEDS: Fenofibrate 54 MG TABLET PO SCH (08:43)
[2019-02-20] MEDS: *HR* Digoxin 0.125 MG TABLET PO SCH (08:43)
[2019-02-20] MEDS: Nystatin POWDER 30 GM BOTTLE TP SCH ×2 (08:44→20:13)
[2019-02-20] MEDS: Magnesium Oxide 400 MG TABLET PO SCH ×2 (08:44→20:10)
--- NOTE | 2019-02-20 09:24 | Internal Med Progress Note ---
Hospitalist Progress Note - Encounter Date of Encounter: 02/20/19 Time of Encounter: 08:24 - Subjective Interval History: Section sheen and examined this morning at bedside. No acute overnight events. Denies new complaints. Denies any abdominal pain nausea vomiting or diarrhea. Feeling well. Denies any urinary complaints. - Exam Vitals: Temp Pulse Resp BP Pulse Ox 97.6 F 85 16 152/79 99 02/20/19 07:59 02/20/19 07:59 02/20/19 07:59 02/20/19 07:59 02/20/19 08:51 Exam: General: In no acute distress. Respiratory exam: CTAB. no accessory muscle use, rales, rhonchi, wheezes Cardiovascular exam: RRR, +S1, +S2. no murmur, gallop, rubs. GI/Abdominal exam: Non-tender, Non-distended, soft, no peritoneal signs. scars from previous surgery noted Extremities exam: no pedal edema, pulses palpable in b/l lower extremities. no calf tenderness Neurological exam: AOx3, No focal deficits. occasionally confused. Skin exam: No skin rash - Assessment and Plan (1) Seizure disorder Current Visit: No Status: Chronic (2) Hypertension, essential Current Visit: No Status: Chronic (3) DVT prophylaxis Current Visit: No Status: Acute (4) UTI (urinary tract infection) Current Visit: Yes Status: Acute (5) Congestive heart failure Current Visit: No Status: Chronic (6) Acute cholecystitis Current Visit: Yes Status: Acute (7) Elevated troponin Current Visit: Yes Status: Acute (8) Epigastric abdominal pain Current Visit: Yes Status: Acute (9) Acute metabolic encephalopathy Current Visit: Yes Status: Acute (10) Hypothyroid Current Visit: No Status: Chronic (11) Hyperlipidemia Current Visit: No Status: Chronic (12) Hypokalemia Current Visit: Yes Status: Acute (13) Hypomagnesemia Current Visit: Yes Status: Acute - Summary of Assessment and Plan Summary of Assessment and Plan: Assessment Acute cholecystitis Acute metabolic encephalopathy Elevated troponin Hypothyroidism Hyperlipidemia CHF, diastolic Abnormal UA hypomagesemia Plan - Patient symptomatically improved with IV antibiotics and tolerating diet. No surgical intervention given high risk and multiple comorbidities and improving with conservative measures. - chest pain free. adynamic trop. 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 cardiology signed off. ECHO with EF of 50-54%, mod-sev TR, sev Pulm HTN - c/w iVF antibiotics for 1-2 more days and consider discharge after as conservative measures opted. BC and Urine NGTD. - Home oxygen arranged. Will get HH referral for nursing and PT/OT. - Time Spent with Patient Total time spent is greater than 50% in coordination of care (as documented) at patient's floor/unit and/or counseling patient: Internal Medicine: Result - Labs CBC & Chem 7: 02/19/19 01:09 02/20/19 07:27 Labs: BMP 02/20/19 07:27 Sodium 137 Potassium 4.4 Chloride 104 Carbon Dioxide 23 BUN 24 H Creatinine 0.74 Glucose 253 H Calcium 9.3 Cardiac Enzymes 02/19/19 02/20/19 Range/Units 12:58 07:27 Troponin I 0.24 H* 0.34 H* (< 0.04) ng/mL Liver Function 02/20/19 Range/Units 07:27 Total Bilirubin 0.6 (0.3-1.0) mg/dL AST 85 H (13-39) Units/L ALT 51 (7-52) Units/L Alkaline Phosphatase 72 (34-104) Units/L Albumin 4.3 (3.5-5.7) g/dL - ABG Interpretation ABG results: PT/INR, D-dimer PT 16.2 Seconds (9.4-12.1) H 02/18/19 17:30 - Impressions Impressions Echocardiogram 02/19/19 00:54 Impressions: LVEF 50-54%. Moderate concentric left ventricular hypertrophy. Indeterminate diastolic function. The right ventricle was not well visualized but appeared grossly normal in size with mild right ventricular hypokinesis. Mild-moderate mitral regurgitation. Moderate-severe tricuspid regurgitation. Severe pulmonary hypertension.Estimated RVSP is 77 mmHg. A device lead was visualized in the right atrium and right ventricle. Left Ventricular Wall Motion: Rest Echo Findings All wall segments showed normal motion. Findings: Study Quality * Technically adequate exam. ECG Findings * Paced rhythm. Left Ventricle * LVEF 50-54%. * Moderate concentric left ventricular hypertrophy. * Indeterminate diastolic function. * Atypical septal motion consistent with paced rhythm. * Normal LV chamber size. Right Ventricle * The right ventricle was not well visualized but appeared grossly normal in size with mild right ventricular hypokinesis. Left Atrium * Normal left atrial size. Right Atrium * Mildly dilated right atrium. Aortic Valve * Trileaflet aortic valve. * Normal aortic valve structure. * No aortic regurgitation. * No aortic stenosis. Mitral Valve * Mild-moderate mitral regurgitation. * No mitral stenosis. * Normal mitral valve structure. Tricuspid Valve * Moderate-severe tricuspid regurgitation. * Severe pulmonary hypertension.Estimated RVSP is 77 mmHg. * * Estimated RA pressure is 15 mmHg. Pulmonic Valve * Pulmonic valve not well visualized. Aorta * Normally sized aortic root. Pericardium * The pericardium appears normal. IVC * The IVC is dilated. Device lead * A device lead was visualized in the right atrium and right ventricle. Pulmonary Artery * Pulmonary artery not well visualized. Consult Discharge Plan - Plan Referrals: NONE,PCP [Primary Care Provider] - (4) UTI (urinary tract infection) Qualifiers: Urinary tract infection type: acute cystitis Hematuria presence: with hematuria Qualified Code(s): N30.01 - Acute cystitis with hematuria (5) Congestive heart failure Qualifiers: Heart failure type: systolic Heart failure chronicity: unspecified Qualified Code(s): I50.20 - Unspecified systolic (congestive) heart failure (10) Hypothyroid Qualifiers: Hypothyroidism type: acquired Qualified Code(s): E03.9 - Hypothyroidism, unspecified (11) Hyperlipidemia Qualifiers: Hyperlipidemia type: unspecified Qualified Code(s): E78.5 - Hyperlipidemia, unspecified
[2019-02-20] MEDS: Ipratropium/Albuterol Neb 3 ML IH SCH ×3 (10:48→22:27)
--- NOTE | 2019-02-20 17:50 | Physician Discharge Referral ---
Home Health/Hosp Referral Info Transfer to: Home Health - Diagnosis (1) Seizure disorder Status: Chronic (2) Hypertension, essential Status: Chronic (3) DVT prophylaxis Status: Acute (4) UTI (urinary tract infection) Status: Acute (5) Congestive heart failure Status: Chronic (6) Acute cholecystitis Status: Acute (7) Elevated troponin Status: Acute (8) Epigastric abdominal pain Status: Acute (9) Acute metabolic encephalopathy Status: Acute (10) Hypothyroid Status: Chronic (11) Hyperlipidemia Status: Chronic (12) Hypokalemia Status: Acute (13) Hypomagnesemia Status: Acute - Respiratory Orders Smoking Cessation: Smoking cessation has been advised. For more information, call the [place] Tobacco Quit Line at 1-039-KQWX-NOW. - Services Needed Following services are medically necessary services: Nursing, Physical Therapy, Occupational Therapy - Transfer Medications Home Medications: Clopidogrel [Plavix] 75 mg PO DAILY 01/12/16 [History] Digoxin [Lanoxin] 0.125 mg PO DAILY 01/12/16 [History] Metoprolol Tartrate [Lopressor] 50 mg PO BID 01/12/16 [History] carBAMazepine [Tegretol] 200 mg PO BID 01/12/16 [History] Cholecalciferol (D-3) [Vitamin D] 1,000 unit PO DAILY 08/10/16 [History] Multivit-Min/Folic Acid/Vit K1 [Multi For Her 50 Plus Softgel] 1 each PO DAILY 08/10/16 [History] Atorvastatin [Lipitor] 40 mg PO DAILY 10/03/18 [History] Albuterol Sulfate [Ventolin Hfa] 2 puff IH Q6H PRN 02/18/19 [History] Fenofibrate Nanocrystallized [Fenofibrate] 145 mg PO DAILY 02/18/19 [History] Levothyroxine Sodium 112 mcg PO QAM 02/18/19 [History] Nitroglycerin [Nitrostat] 0.4 mg PO AD PRN 02/18/19 [History] Allergies/Adverse Reactions: Allergy/AdvReac Type Severity Reaction Status Date / Time Amoxicillin Allergy Hives Verified 10/03/18 19:36 phenytoin [From Dilantin] Allergy Hives Verified 10/03/18 19:36 Sulfa (Sulfonamide Allergy See Verified 10/03/18 19:36 Antibiotics) Comments vancomycin Allergy Hives Verified 10/03/18 19:36 Certification: Further, I certify that my clinical findings support that this patient is homebound (i.e. absences from home require considerable and taxing effort and are for medical reasons or christian services or infrequently or short duration when for other reasons) because: Homebound Reason: Patient requires assistance of a person or device to safely leave home Attestation: My signature below is to certify that this patient is under my care and that I, or nurse practitioner, or a physician's assistant import manager working with me, has a [id number] encounter with this patient.
[2019-02-20] MEDS: MethylPREDNISolone 40 MG/ML VIAL IVP SCH (18:37)
[2019-02-21] MEDS: Ipratropium/Albuterol Neb 3 ML IH SCH ×4 (03:59→21:43)
[2019-02-21] MEDS: Cefepime HCl 2,000 MG in Water for inj. (sterile) 20 ML 20 ML IVP SCH ×2 (05:06→16:53)
[2019-02-21] MEDS: MetroNIDAZOLE 500 MG/100 ML 500 MG/100 ML BAG IVPB SCH ×3 (05:07→20:55)
[2019-02-21] MEDS: MethylPREDNISolone 40 MG/ML VIAL IVP SCH (05:08)
[2019-02-21] MEDS: Insulin LISPRO 300 UNITS/3 ML VIAL SQ SCH ×4 (07:49→20:56)
[2019-02-21] MEDS: Fenofibrate 54 MG TABLET PO SCH (07:50)
[2019-02-21] MEDS: *HR* Digoxin 0.125 MG TABLET PO SCH (07:50)
[2019-02-21] MEDS: carBAMazepine 200 MG TABLET PO SCH ×2 (07:50→20:56)
[2019-02-21] MEDS: Magnesium Oxide 400 MG TABLET PO SCH ×2 (07:50→20:54)
[2019-02-21] MEDS: Nystatin POWDER 30 GM BOTTLE TP SCH (07:55)
[2019-02-21] MEDS: predniSONE 20 MG TABLET PO SCH (09:00)
--- NOTE | 2019-02-21 11:23 | Internal Med Progress Note ---
Hospitalist Progress Note - Encounter Date of Encounter: 02/21/19 Time of Encounter: 11:20 - Subjective Interval History: I have seen and evaluated the patient at bedside. As per daughter at bedside the patient has had some episodes of confusion this morning, but she denies changes in the patient speech. the patient is AOx3. she denies abdominal pain and reports that she eat her breakfast without issues. she denies chest pain, nausea or shortness of breath. - Exam Vitals: Temp Pulse Resp BP Pulse Ox 98.0 F 102 22 132/83 99 02/21/19 07:27 02/21/19 07:27 02/21/19 10:19 02/21/19 07:27 02/21/19 10:19 Exam: Vitals: Reviewed General: Alert and oriented x3. In no distress Skin: Normal color, no rash, no lesions. HEENT: EOM, pupils equal, round and reactive. Cardiovascular: RRR, normal S1 & S2, no rubs, murmurs or gallops. Lungs: CTA b/l, no wheezes or crackles. Abdomen: Obese, soft, non-tender, no rigidity. Extremities: No edema Neurological: No focal neurological deficits Rest of the physical exam is non contributory - Assessment and Plan (1) Acute metabolic encephalopathy Current Visit: Yes Status: Acute Assessment and Plan: patient daughter at bedside reports that the patient has been having some episodes of confusion and agitations. Patient mental status due to Delirium. [place] will repeat Head CT. lorazepam 0.5mg/PO BID PRN for agitation. (2) Hypertension, essential Current Visit: No Status: Chronic Assessment and Plan: Blood pressure is well controlled. Patient some metoprolol 25 mg by mouth twice a day. (3) Seizure disorder Current Visit: No Status: Chronic Assessment and Plan: Continue carbamazepine 200 mg by mouth twice a day. (4) UTI (urinary tract infection) Current Visit: Yes Status: Acute Assessment and Plan: Urine cultures no growth. Patient is on broad-spectrum IV antibiotics. (5) Congestive heart failure Current Visit: No Status: Chronic Assessment and Plan: Patient is euvolemic. Continue fluid restriction to 1.5 L a day. On a beta khoa. (6) Acute cholecystitis Current Visit: Yes Status: Acute Assessment and Plan: Patient denies abdominal pain. She has been tolerating her oral diet appropriately. We will continue cefepime 2 g IV every 12 hours plus metronidazole. For at least 24 more hours, then we will switch to oral antibiotics (7) Elevated troponin Current Visit: Yes Status: Resolved (8) Hypothyroid Current Visit: No Status: Chronic Assessment and Plan: Continue levothyroxine 112 mcg/PO daily (9) Hyperlipidemia Current Visit: No Status: Chronic Assessment and Plan: On statin 40 mg by mouth daily. (10) Hypokalemia Current Visit: Yes Status: Resolved (11) Hypomagnesemia Current Visit: Yes Status: Acute (12) A-fib Current Visit: Yes Status: Chronic Assessment and Plan: Rate controlled on metoprolol and digoxin. Patient off anticoagulations and aspirin due to history of brain bleed. (13) Coronary artery disease Current Visit: No Status: Chronic Assessment and Plan: Patient is on clopidogrel 75 mg by mouth daily. DVT Prophylaxis: Intermittent pneumatic compression for DVT prophylaxis. Patient family refused chemical anticoagulation due to Hx of hemorrhagic CVA. - Summary of Assessment and Plan Summary of Assessment and Plan: patient to remain in the hospital due to acute cholecystitis on IV antibiotics. - Time Spent with Patient Total time spent is greater than 50% in coordination of care (as documented) at patient's floor/unit and/or counseling patient: Greater than 35 minutes (40) Plan of Care Discussed with: patient (her daughter and the nurse.) Internal Medicine: Result - Labs CBC & Chem 7: 02/19/19 01:09 02/20/19 07:27 - ABG Interpretation ABG results: PT/INR, D-dimer PT 16.2 Seconds (9.4-12.1) H 02/18/19 17:30 Consult Discharge Plan - Plan Referrals: NONE,PCP [Primary Care Provider] - (4) UTI (urinary tract infection) Qualifiers: Urinary tract infection type: acute cystitis Hematuria presence: with hematuria Qualified Code(s): N30.01 - Acute cystitis with hematuria (5) Congestive heart failure Qualifiers: Heart failure type: systolic Heart failure chronicity: unspecified Qualified Code(s): I50.20 - Unspecified systolic (congestive) heart failure (8) Hypothyroid Qualifiers: Hypothyroidism type: acquired Qualified Code(s): E03.9 - Hypothyroidism, unspecified (9) Hyperlipidemia Qualifiers: Hyperlipidemia type: unspecified Qualified Code(s): E78.5 - Hyperlipidemia, unspecified (12) A-fib Qualifiers: Atrial fibrillation type: chronic Qualified Code(s): I48.2 - Chronic atrial fibrillation (13) Coronary artery disease Qualifiers: Coronary Disease-Associated Artery/Lesion type: [place] artery [place] vs. transplanted heart: [place] heart Associated angina: without angina Qualified Code(s): I25.10 - Atherosclerotic heart disease of [place] coronary artery without angina pectoris
[2019-02-21] MEDS: *HR* LORazepam 0.5 MG TABLET PO PRN (13:24)
[2019-02-21] MEDS: Nitroglycerin 25 MG/250 ML INFUS..BTL IVC SCH (16:41)
[2019-02-22] MEDS: Nystatin POWDER 30 GM BOTTLE TP SCH ×3 (02:26→21:19)
[2019-02-22] MEDS: Ipratropium/Albuterol Neb 3 ML IH SCH ×4 (03:45→22:01)
[2019-02-22] MEDS: MetroNIDAZOLE 500 MG/100 ML 500 MG/100 ML BAG IVPB SCH ×2 (04:05→11:20)
[2019-02-22] MEDS: *HR* LORazepam 0.5 MG TABLET PO PRN ×2 (04:05→11:20)
[2019-02-22 04:34] LABS: Basophils % 0.4 %; Eosinophils # 0.2 K/mcL (0.0-0.6); Eosinophils % 2.8 %; Hematocrit 35.5 % (35.3-44.9); Hemoglobin 11.4 g/dL (11.5-15.4); Immature Granulocytes % 0.3 % (0-4); Lymphocytes # 0.7 K/mcL (0.6-4.6); Lymphocytes % 9.5 %; Mean Corpuscular HGB Conc 32.1 g/dL (31.6-35.5); Mean Corpuscular Hemoglobin 31.1 pg (28.0-33.3); Mean Corpuscular Volume 96.7 fL (83.0-100.0); Mean Platelet Volume 10.1 fL (9.4-12.4); Monocytes # 0.9 K/mcL (0.0-1.3); Monocytes % 11.6 %; Neutrophils # 5.9 K/mcL (1.6-8.9); Platelet Count 125 K/mcL (140-400); Red Blood Count 3.67 M/mcL (3.82-4.97); Red Cell Distribution Width 15.9 % (11.5-14.5); Segmented Neutrophils % 75.4 %
[2019-02-22 04:57] LABS: BUN/Creatinine Ratio 21 (6-26); Blood Urea Nitrogen 15 mg/dL (8-23); Calcium 9.2 mg/dL (8.6-10.3); Carbon Dioxide 22 mEq/L (23-29); Chloride 103 mEq/L (98-107); Glucose 158 mg/dL (70-105); Magnesium 1.8 mg/dL (1.6-2.6); Osmolality,Calculated 282 (280-300); Phosphorous 1.8 mg/dL (2.7-4.5); Sodium 134 mEq/L (136-145); eGFR For Non-African Americans > 60 (> 60)
[2019-02-22] MEDS: Cefepime HCl 2,000 MG in Water for inj. (sterile) 20 ML 20 ML IVP SCH (05:47)
[2019-02-22] MEDS: Insulin LISPRO 300 UNITS/3 ML VIAL SQ SCH ×4 (08:27→21:19)
[2019-02-22] MEDS: predniSONE 20 MG TABLET PO SCH (08:28)
[2019-02-22] MEDS: Magnesium Oxide 400 MG TABLET PO SCH ×2 (08:28→21:18)
[2019-02-22] MEDS: Fenofibrate 54 MG TABLET PO SCH (08:28)
[2019-02-22] MEDS: carBAMazepine 200 MG TABLET PO SCH ×2 (08:28→21:19)
[2019-02-22] MEDS: *HR* Digoxin 0.125 MG TABLET PO SCH (08:28)
[2019-02-22] MEDS ORDERED: Haloperidol Lactate 5 MG/ML VIAL IVP PRN (14:40)
--- NOTE | 2019-02-22 15:31 | Internal Med Progress Note ---
Hospitalist Progress Note - Encounter Date of Encounter: 02/22/19 Time of Encounter: 15:29 - Subjective Interval History: I have seen and evaluated the patient at bedside. Patient in no distress, but as per patient the patient did not have any sleep last night and she has been having visual hallucination. patient talked about some men who have been in her room when no one has. patient denies chest pain or shortness of breath. - Exam Vitals: Temp Pulse Resp BP Pulse Ox 98.0 F 87 20 140/73 98 02/22/19 15:22 02/22/19 15:22 02/22/19 09:41 02/22/19 15:02/22/19 09:41 Exam: Vitals: Reviewed General: Alert and oriented x2. In no distress Cardiovascular: RRR, normal S1 & S2, no rubs, murmurs or gallops. Lungs: CTA b/l, no wheezes or crackles. Abdomen: Obese, soft, non-tender, no rigidity. Extremities: No edema Neurological: No focal neurological deficits Rest of the physical exam is non contributory - Assessment and Plan (1) Acute metabolic encephalopathy Current Visit: Yes Status: Acute Assessment and Plan: acute delirium. Head CT: Unremarkable discontinue ativan will start haldo 1mg/IV Q6HR PRN for agitation fall precautions (2) Hypertension, essential Current Visit: No Status: Chronic Assessment and Plan: Blood pressures well controlled. On metoprolol 25 mg by mouth twice a day. (3) Seizure disorder Current Visit: No Status: Chronic Assessment and Plan: On carbamazepine 200 mg by mouth twice a day. (4) UTI (urinary tract infection) Current Visit: Yes Status: Acute Assessment and Plan: Urine cultures no growth. Patient has been on broad-spectrum antibiotics for the past 3 days. (5) Congestive heart failure Current Visit: No Status: Chronic Assessment and Plan: Not on acute exacerbation. Patient is euvolemic. Continue fluid restriction to 1.5 L a day. On a beta khoa. (6) Acute cholecystitis Current Visit: Yes Status: Acute Assessment and Plan: Patient tolerating oral diet. Denies abdominal pain. Discontinue IV cefepime and metronidazole. Patient is started on metronidazole 500 mg by mouth 3 times a day, and levofloxacin 750 by mouth daily. (7) Elevated troponin Current Visit: Yes Status: Resolved (8) Hypothyroid Current Visit: No Status: Chronic Assessment and Plan: On levothyroxine 112 mcg/PO daily (9) Hyperlipidemia Current Visit: No Status: Chronic Assessment and Plan: On atorvastatin 40 mg by mouth daily. (10) Hypokalemia Current Visit: Yes Status: Resolved (11) Hypomagnesemia Current Visit: Yes Status: Resolved (12) A-fib Current Visit: Yes Status: Chronic Assessment and Plan: Rate controlled on metoprolol and digoxin. Patient off anticoagulations and aspirin due to history of brain bleed. (13) Coronary artery disease Current Visit: No Status: Chronic Assessment and Plan: Patient is on antiplatelet therapy. On Plavix. DVT Prophylaxis: No chemical DVT prophylaxis due to history of hemorrhagic stroke Mechanical DVT prophylaxis with intermittent pneumatic compression. - Summary of Assessment and Plan Summary of Assessment and Plan: Patient to remain in the hospital due to acute delirium - Time Spent with Patient Total time spent is greater than 50% in coordination of care (as documented) at patient's floor/unit and/or counseling patient: Greater than 35 minutes (40) Plan of Care Discussed with: nurse (and patient's daughter.) Internal Medicine: Result - Labs CBC & Chem 7: 02/22/19 02:25 02/22/19 02:25 Labs: Short CBC 02/22/19 Range/Units 02:25 WBC 7.8 (4.3-11.1) K/mcL Hgb 11.4 L (11.5-15.4) g/dL Hct 35.5 (35.3-44.9) % Plt Count 125 L (140-400) K/mcL Neutrophils # 5.9 (1.6-8.9) K/mcL BMP 02/22/19 02:25 Sodium 134 L Potassium 4.0 Chloride 103 Carbon Dioxide 22 L BUN 15 Creatinine 0.71 Glucose 158 H Calcium 9.2 - ABG Interpretation ABG results: PT/INR, D-dimer PT 16.2 Seconds (9.4-12.1) H 02/18/19 17:30 Consult Discharge Plan - Plan Referrals: NONE,PCP [Primary Care Provider] - (4) UTI (urinary tract infection) Qualifiers: Urinary tract infection type: acute cystitis Hematuria presence: with hematuria Qualified Code(s): N30.01 - Acute cystitis with hematuria (5) Congestive heart failure Qualifiers: Heart failure type: systolic Heart failure chronicity: unspecified Qualified Code(s): I50.20 - Unspecified systolic (congestive) heart failure (8) Hypothyroid Qualifiers: Hypothyroidism type: acquired Qualified Code(s): E03.9 - Hypothyroidism, unspecified (9) Hyperlipidemia Qualifiers: Hyperlipidemia type: unspecified Qualified Code(s): E78.5 - Hyperlipidemia, unspecified (12) A-fib Qualifiers: Atrial fibrillation type: chronic Qualified Code(s): I48.2 - Chronic atrial fibrillation (13) Coronary artery disease Qualifiers: Coronary Disease-Associated Artery/Lesion type: [place] artery [place] vs. transplanted heart: [place] heart Associated angina: without angina Qualified Code(s): I25.10 - Atherosclerotic heart disease of [place] coronary artery without angina pectoris
[2019-02-22] MEDS: Nitroglycerin 25 MG/250 ML INFUS..BTL IVC SCH (15:59)
[2019-02-22] MEDS: metroNIDAZOLE 500 MG TABLET PO SCH (21:18)
[2019-02-23] MEDS: Ipratropium/Albuterol Neb 3 ML IH SCH ×4 (04:26→22:27)
[2019-02-23 07:07] LABS: Basophils % 0.3 %; Eosinophils # 0.2 K/mcL (0.0-0.6); Eosinophils % 2.3 %; Hematocrit 38.5 % (35.3-44.9); Hemoglobin 12.4 g/dL (11.5-15.4); Immature Granulocytes % 0.4 % (0-4); Lymphocytes % 13.2 %; Mean Corpuscular HGB Conc 32.2 g/dL (31.6-35.5); Mean Corpuscular Hemoglobin 30.6 pg (28.0-33.3); Mean Corpuscular Volume 95.1 fL (83.0-100.0); Mean Platelet Volume 10.1 fL (9.4-12.4); Monocytes # 0.9 K/mcL (0.0-1.3); Monocytes % 11.2 %; Neutrophils # 5.7 K/mcL (1.6-8.9); Platelet Count 151 K/mcL (140-400); Red Blood Count 4.05 M/mcL (3.82-4.97); Red Cell Distribution Width 15.6 % (11.5-14.5); Segmented Neutrophils % 72.6 %
[2019-02-23 07:28] LABS: BUN/Creatinine Ratio 23 (6-26); Blood Urea Nitrogen 17 mg/dL (8-23); Calcium 9.9 mg/dL (8.6-10.3); Carbon Dioxide 21 mEq/L (23-29); Chloride 100 mEq/L (98-107); Glucose 154 mg/dL (70-105); Magnesium 1.9 mg/dL (1.6-2.6); Osmolality,Calculated 285 (280-300); Phosphorous 2.5 mg/dL (2.7-4.5); Potassium 3.9 mEq/L (3.5-5.1); Sodium 135 mEq/L (136-145); eGFR For Non-African Americans > 60 (> 60)
[2019-02-23] MEDS: levoFLOXacin 750 MG TABLET PO SCH (08:35)
[2019-02-23] MEDS: *HR* Digoxin 0.125 MG TABLET PO SCH (08:35)
[2019-02-23] MEDS: carBAMazepine 200 MG TABLET PO SCH ×2 (08:35→21:07)
[2019-02-23] MEDS: metroNIDAZOLE 500 MG TABLET PO SCH ×3 (08:36→21:06)
[2019-02-23] MEDS: Fenofibrate 54 MG TABLET PO SCH (08:36)
[2019-02-23] MEDS: Insulin LISPRO 300 UNITS/3 ML VIAL SQ SCH ×4 (08:48→21:08)
[2019-02-23] MEDS: Nystatin POWDER 30 GM BOTTLE TP SCH ×2 (08:49→21:08)
[2019-02-23] MEDS ORDERED: predniSONE 20 MG TABLET PO SCH (09:00)
[2019-02-23] MEDS ORDERED: Furosemide 40 MG TABLET PO SCH (09:00)
--- NOTE | 2019-02-23 14:45 | Internal Med Progress Note ---
Hospitalist Progress Note - Encounter Date of Encounter: 02/23/19 Time of Encounter: 14:43 - Subjective Interval History: I have seen and evaluated the patient at bedside. patient back to her baseline mentally today. she denies nausea, vomiting or abdominal pain. denies headache. she has been tolerating oral diet well. - Exam Vitals: Temp Pulse Resp BP Pulse Ox 97.6 F 90 20 118/86 93 02/23/19 04:38 02/23/19 11:42 02/23/19 11:42 02/23/19 11:42 02/23/19 11:42 Exam: Vitals: Reviewed General: Alert and oriented x2. In no distress Cardiovascular: RRR, normal S1 & S2, no rubs, murmurs or gallops. Lungs: CTA b/l, no wheezes or crackles. Abdomen: Obese, soft, non-tender, no rigidity. 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 base on family member an nursing staff who saw the patient the day of her admission discontinue 1:1 sitter fall precautions continue Haldo 1mg/IV Q6HR PRN for agitation. (2) Hypertension, essential Current Visit: No Status: Chronic Assessment and Plan: Blood pressure is well controlled. Patient is on metoprolol 25 mg by mouth twice a day. On furosemide 20 mg by mouth daily. (3) Seizure disorder Current Visit: No Status: Chronic Assessment and Plan: Continue carbamazepine 200 mg by mouth twice a day. (4) UTI (urinary tract infection) Current Visit: Yes Status: Resolved Assessment and Plan: Patient has received 4 days of broad-spectrum IV antibiotics. (5) Congestive heart failure Current Visit: No Status: Chronic Assessment and Plan: Estimated ejection fraction of 50-54% Patient shortness of breath is less likely related to CHF exacerbation. Chest is clear to auscultation, and no edema in the lower extremity. Shortness of breath most likely secondary to severe pulmonary hypertension with RVSP of 77%. started on furosemide 20mg/PO dialy. caution needed regarding diuresis in this patient with severe pulmonary HTN Continue metoprolol. (6) Acute cholecystitis Current Visit: Yes Status: Acute Assessment and Plan: Patient has been tolerating oral diet well. We will continue metronidazole 500 mg by mouth 3 times a day on levofloxacin 750 mg by mouth daily for at least 2 more days. (7) Elevated troponin Current Visit: Yes Status: Resolved (8) Hypothyroid Current Visit: No Status: Chronic Assessment and Plan: Continue levothyroxine 112 mcg/PO daily (9) Hyperlipidemia Current Visit: No Status: Chronic Assessment and Plan: On atorvastatin 40 mg by mouth daily. (10) Hypokalemia Current Visit: Yes Status: Resolved (11) Hypomagnesemia Current Visit: Yes Status: Resolved (12) A-fib Current Visit: Yes Status: Chronic Assessment and Plan: Rate controlled on metoprolol and digoxin. Not anticoagulated due to history of ICH (13) Coronary artery disease Current Visit: No Status: Chronic Assessment and Plan: Patient is on antiplatelet therapy. On Plavix. (14) Moderate to severe pulmonary hypertension Current Visit: Yes Status: Acute DVT Prophylaxis: Intermittent pneumatic compression for DVT prophylaxis. No chemical DVT prophylaxis due to history of ICH and family refused it. - Summary of Assessment and Plan Summary of Assessment and Plan: Will keep patient in the hospital for 1 more day to monitor mental status. - Time Spent with Patient Total time spent is greater than 50% in coordination of care (as documented) at patient's floor/unit and/or counseling patient: Greater than 35 minutes (40) Plan of Care Discussed with: patient (the nurse and the patient's [facility].) Internal Medicine: Result - Labs CBC & Chem 7: 02/23/19 06:36 02/23/19 06:36 Labs: Short CBC 02/23/19 Range/Units 06:36 WBC 7.8 (4.3-11.1) K/mcL Hgb 12.4 (11.5-15.4) g/dL Hct 38.5 (35.3-44.9) % Plt Count 151 (140-400) K/mcL Neutrophils # 5.7 (1.6-8.9) K/mcL BMP 02/23/19 06:36 Sodium 135 L Potassium 3.9 Chloride 100 Carbon Dioxide 21 L BUN 17 Creatinine 0.74 Glucose 154 H Calcium 9.9 - ABG Interpretation ABG results: PT/INR, D-dimer PT 16.2 Seconds (9.4-12.1) H 02/18/19 17:30 - Impressions Impressions Chest X-Ray 02/23/19 02:07 IMPRESSION: Grossly stable pulmonary edema. D/ / Lenin Love MD / Lenin Love MD Interpreting Provider: Lenin Love MD Consult Discharge Plan - Plan Referrals: NONE,PCP [Primary Care Provider] - (4) UTI (urinary tract infection) Qualifiers: Urinary tract infection type: acute cystitis Hematuria presence: with hematuria Qualified Code(s): N30.01 - Acute cystitis with hematuria (5) Congestive heart failure Qualifiers: Heart failure type: systolic Heart failure chronicity: unspecified Qualified Code(s): I50.20 - Unspecified systolic (congestive) heart failure (8) Hypothyroid Qualifiers: Hypothyroidism type: acquired Qualified Code(s): E03.9 - Hypothyroidism, unspecified (9) Hyperlipidemia Qualifiers: Hyperlipidemia type: unspecified Qualified Code(s): E78.5 - Hyperlipidemia, unspecified (12) A-fib Qualifiers: Atrial fibrillation type: chronic Qualified Code(s): I48.2 - Chronic atrial fibrillation (13) Coronary artery disease Qualifiers: Coronary Disease-Associated Artery/Lesion type: [place] artery [place] vs. transplanted heart: [place] heart Associated angina: without angina Qualified Code(s): I25.10 - Atherosclerotic heart disease of [place] coronary artery without angina pectoris
[2019-02-23] MEDS: Nitroglycerin 25 MG/250 ML INFUS..BTL IVC SCH (21:07)
[2019-02-24] MEDS: Ipratropium/Albuterol Neb 3 ML IH SCH ×2 (04:00→09:39)
[2019-02-24 07:58] VITALS: BP 108/31
[2019-02-24] MEDS: metroNIDAZOLE 500 MG TABLET PO SCH (08:01)
[2019-02-24] MEDS: carBAMazepine 200 MG TABLET PO SCH (08:01)
[2019-02-24] MEDS: Fenofibrate 54 MG TABLET PO SCH (08:01)
[2019-02-24] MEDS: *HR* Digoxin 0.125 MG TABLET PO SCH (08:01)
[2019-02-24] MEDS: levoFLOXacin 750 MG TABLET PO SCH (08:01)
[2019-02-24] MEDS: Insulin LISPRO 300 UNITS/3 ML VIAL SQ SCH (08:02)
[2019-02-24] MEDS: Nystatin POWDER 30 GM BOTTLE TP SCH (08:08)
[2019-02-24 08:37] LABS: Basophils % 0.4 %; Eosinophils # 0.1 K/mcL (0.0-0.6); Eosinophils % 1.5 %; Hematocrit 36.5 % (35.3-44.9); Hemoglobin 11.8 g/dL (11.5-15.4); Immature Granulocytes % 0.4 % (0-4); Lymphocytes # 0.9 K/mcL (0.6-4.6); Lymphocytes % 10.6 %; Mean Corpuscular HGB Conc 32.3 g/dL (31.6-35.5); Mean Corpuscular Hemoglobin 30.9 pg (28.0-33.3); Mean Corpuscular Volume 95.5 fL (83.0-100.0); Mean Platelet Volume 9.8 fL (9.4-12.4); Monocytes # 0.8 K/mcL (0.0-1.3); Monocytes % 10.3 %; Neutrophils # 6.2 K/mcL (1.6-8.9); Platelet Count 171 K/mcL (140-400); Red Blood Count 3.82 M/mcL (3.82-4.97); Red Cell Distribution Width 15.8 % (11.5-14.5); Segmented Neutrophils % 76.8 %
[2019-02-24 08:57] LABS: BUN/Creatinine Ratio 27 (6-26); Blood Urea Nitrogen 22 mg/dL (8-23); Calcium 9.5 mg/dL (8.6-10.3); Carbon Dioxide 27 mEq/L (23-29); Chloride 97 mEq/L (98-107); Glucose 199 mg/dL (70-105); Magnesium 1.6 mg/dL (1.6-2.6); Osmolality,Calculated 285 (280-300); Phosphorous 1.9 mg/dL (2.7-4.5); Potassium 3.9 mEq/L (3.5-5.1); Sodium 133 mEq/L (136-145); eGFR For Non-African Americans > 60 (> 60)
[2019-02-24] MEDS ORDERED: predniSONE 20 MG TABLET PO SCH (09:00)
[2019-02-24] MEDS ORDERED: Furosemide 20 MG TABLET PO SCH (09:00)
--- NOTE | 2019-02-24 09:06 | Discharge Summary ---
Date of Encounter: 02/24/19 Time of Encounter: 09:00 - Discharge Diagnosis (1) Acute metabolic encephalopathy Priority: Primary Status: Resolved (2) Hypertension, essential Priority: Secondary Status: Chronic (3) Seizure disorder Priority: Secondary Status: Chronic (4) UTI (urinary tract infection) Priority: Secondary Status: Resolved Qualifiers: Urinary tract infection type: acute cystitis Hematuria presence: with hematuria Qualified Code(s): N30.01 - Acute cystitis with hematuria (5) Congestive heart failure Priority: Secondary Status: Chronic Qualifiers: Heart failure type: systolic Heart failure chronicity: unspecified Qualified Code(s): I50.20 - Unspecified systolic (congestive) heart failure (6) Acute cholecystitis Priority: Primary Status: Acute (7) Elevated troponin Priority: Secondary Status: Resolved (8) Hypothyroid Priority: Secondary Status: Chronic Qualifiers: Hypothyroidism type: acquired Qualified Code(s): E03.9 - Hypothyroidism, unspecified (9) Hyperlipidemia Priority: Secondary Status: Chronic Qualifiers: Hyperlipidemia type: unspecified Qualified Code(s): E78.5 - Hyperlipidemia, unspecified (10) Hypokalemia Priority: Secondary Status: Resolved (11) Hypomagnesemia Priority: Secondary Status: Resolved (12) A-fib Priority: Secondary Status: Chronic Qualifiers: Atrial fibrillation type: chronic Qualified Code(s): I48.2 - Chronic atrial fibrillation (13) Coronary artery disease Priority: Secondary Status: Chronic Qualifiers: Coronary Disease-Associated Artery/Lesion type: [place] artery [place] vs. transplanted heart: [place] heart Associated angina: without angina Qualified Code(s): I25.10 - Atherosclerotic heart disease of [place] coronary artery without angina pectoris (14) Moderate to severe pulmonary hypertension Priority: Primary Status: Chronic Hospital course: Ms. Shultz is a 84 year old female PMH of a fib, CAD, CHF, s/p CABG, hx of TIA, HTN, and HLD. She presents from home to the ER with the complaint of shortness of breath for 4 days. She always has SOB but now it has begun to increasingly get worse. She also complains of nonspecific chest pain that she says is a ripping chest pain across her chest rated as an 8/10 that radiates into back and arm. She also c/o abdominal pain mostly in the upper part of her abdomen. CT dissection study and US of the abd, which showed possible cholecystitis. Acute care surgery was consulted who evaluated the patient and recommended to manage the patient with broad spectrum IV antibiotics. Patient refused any surgical intervention. Cardiology was consulted for mildly elevated trops and recommended against any interventions. During this admission patient developed acute delirium managed with Haldo PRN. Patient acute symptoms on presentation have resolved. patient chronic shortness of breath is believed to be due to severe pulmonary HTN, RSVP 77. Patient did not qualified for home O2. Recommended to follow up with a professional poker player as outpatient. - Time Spent with Patient Total time spent providing and/or coordinating discharge services: Time spent: Greater than 30 minutes (35) - Discharge Medications Prescriptions: New metroNIDAZOLE [Flagyl] 500 mg PO TID 3 Days #9 tablet levoFLOXacin [Levaquin] 750 mg PO DAILY 3 Days #3 tablet predniSONE [PredniSONE] 20 mg PO DAILY 1 Days #1 tablet predniSONE [PredniSONE] 10 mg PO DAILY 1 Days #1 tablet Continued Metoprolol Tartrate [Lopressor] 50 mg PO BID Digoxin [Lanoxin] 0.125 mg PO DAILY Clopidogrel [Plavix] 75 mg PO DAILY carBAMazepine [Tegretol] 200 mg PO BID Cholecalciferol (D-3) [Vitamin D] 1,000 unit PO DAILY Multivit-Min/Folic Acid/Vit K1 [Multi For Her 50 Plus Softgel] 1 each PO DAILY Atorvastatin [Lipitor] 40 mg PO DAILY Levothyroxine Sodium 112 mcg PO QAM Fenofibrate Nanocrystallized [Fenofibrate] 145 mg PO DAILY Albuterol Sulfate [Ventolin Hfa] 2 puff IH Q6H PRN PRN Reason: Shortness Of Breath Nitroglycerin [Nitrostat] 0.4 mg PO AD PRN PRN Reason: Chest Pain Home Medications: Clopidogrel [Plavix] 75 mg PO DAILY 01/12/16 [History] Digoxin [Lanoxin] 0.125 mg PO DAILY 01/12/16 [History] Metoprolol Tartrate [Lopressor] 50 mg PO BID 01/12/16 [History] carBAMazepine [Tegretol] 200 mg PO BID 01/12/16 [History] Cholecalciferol (D-3) [Vitamin D] 1,000 unit PO DAILY 08/10/16 [History] Multivit-Min/Folic Acid/Vit K1 [Multi For Her 50 Plus Softgel] 1 each PO DAILY 11/04/16 [History] Atorvastatin [Lipitor] 40 mg PO DAILY 10/03/18 [History] Albuterol Sulfate [Ventolin Hfa] 2 puff IH Q6H PRN 02/18/19 [History] Fenofibrate Nanocrystallized [Fenofibrate] 145 mg PO DAILY 02/18/19 [History] Levothyroxine Sodium 112 mcg PO QAM 02/18/19 [History] Nitroglycerin [Nitrostat] 0.4 mg PO AD PRN 02/18/19 [History] levoFLOXacin [Levaquin] 750 mg PO DAILY 3 Days #3 tablet 02/24/19 [Rx] metroNIDAZOLE [Flagyl] 500 mg PO TID 3 Days #9 tablet 02/24/19 [Rx] predniSONE [PredniSONE] 10 mg PO DAILY 1 Days #1 tablet 02/24/19 [Rx] predniSONE [PredniSONE] 20 mg PO DAILY 1 Days #1 tablet 02/24/19 [Rx] Allergies/Adverse Reactions: Allergy/AdvReac Type Severity Reaction Status Date / Time Amoxicillin Allergy Hives Verified 10/03/18 19:36 phenytoin [From Dilantin] Allergy Hives Verified 10/03/18 19:36 Sulfa (Sulfonamide Allergy See Verified 10/03/18 19:36 Antibiotics) Comments vancomycin Allergy Hives Verified 10/03/18 19:36 Date of admission: 02/19/19 18:45 Primary care physician: PCP NONE Consults: 02/19/19 00:52 Consult to Occupational Therapy [CONS] Routine Comment: Evaluate, develop and implement POC Reason for Consult: weakness Does patient have active BEDREST order?: No Is patient medically & hemodynamically stable?: Yes Patient assessed for mobility or mobilized this visit?: No Consult to Physical Therapy [CONS] Routine Comment: Evaluate, develop and implement POC Reason for Consult: weakness Does patient have active BEDREST order?: No Is patient medically & hemodynamically stable?: Yes Patient assessed for mobility or mobilized this visit?: No Consult to Surgery [CONS] Routine Consulting Provider: Acute Care Surgery Reason for Consult: cholecystitis Call Completed: Yes 02/19/19 01:07 Consult to Cardiology [CONS] Routine Comment: Consulting Provider: Cardiology [place] Reason for Consult: pre-op eval Call Completed: No - Constitutional Vitals: Temp Pulse Resp BP Pulse Ox 97.9 F 101 17 108/31 100 02/24/19 04:25 05/21/19 07:53 02/24/19 07:53 02/24/19 07:53 02/24/19 04:25 Exam: Vitals: Reviewed General: Alert and oriented x4. In no distress Cardiovascular: RRR, normal S1 & S2, no rubs, murmurs or gallops. Lungs: CTA b/l, no wheezes or crackles. Abdomen: Obese, soft, non-tender, no rigidity. NABS in all 4 quadrants. Extremities: No edema Neurological: No focal neurological deficits Rest of the physical exam is non contributory - Patient Status Disposition: Home Health Service Condition: Fair Functional capacity at discharge: independent ambulation Overall status at discharge: patient is back to baseline - Discharge Instructions Follow Up With: NONE,PCP [Primary Care Provider] - - Diet and Activity Activity: resume usual activities as tolerated Diet: low salt diet
== END 2019-02-24 11:51 | disposition home health service (06) | DRG 444 ==
LOC: EMEROOARM 16:49 → 2NENU 16:49 → SUATTDRO 23:12 → 2NENU 23:24 → SUATTDRO 02-19 18:45
PROVIDERS: ADMIT Pediatrics; ATTEND Internal Medicine

== ENCOUNTER 2019-03-01 23:26 | Observation (INO) ==
--- NOTE | 2019-03-01 23:45 | Emergency Department Note ---
Disposition Clinical Impression: Confusion, Hepatic encephalopathy, Lactic acidemia, Acute kidney injury, Transaminitis Disposition: Admitted As Inpatient Condition: Good Time of Disposition: 06:38 General Adult HPI - General Stated complaint: akua, confusion Time Seen by Provider: 03/01/19 23:29 Nursing Notes Reviewed: Yes Vital Signs Reviewed: Yes - History of Present Illness HPI Narrative: 84-year-old female presents from home with mother bedside via EMS for evaluation. Patient was discharged from this facility 6 days ago with diagnosis of UTI. She completed her home antibiotics. She has not been home alone; she has family with her [id number] since discharge. Patient's daughters bedside and concerned patient is now 2 week to walk and she has worsening confusion. She is having slow decline since discharge from the hospital. Patient has been with family 29/04. They have been administering medications. Patient has not taken too many or her medications or any overdoses of over the counter medications. At baseline, patient lived alone and was independent. She was last at baseline 2-3 weeks ago. Patient has a history of confusion with urinary tract infection. Her symptoms today are different in that she has confusion and somnolence. PMH: Atrial fibrillation rate controlled on metoprolol and digoxin. No anticoagulation secondary to history of intracranial hemorrhage. CAD on Plavix. Pulmonary hypertension. Hypothyroidism on levothyroxine. Hyperlipidemia. Review systems limited. Patient's medical condition. She is falling asleep during questioning but is arousable. She is confused. - Related Data Home Medications Medication Instructions Recorded Confirmed Clopidogrel [Plavix] 75 mg PO DAILY 01/12/16 02/18/19 Digoxin [Lanoxin] 0.125 mg PO DAILY 01/12/16 02/18/19 Metoprolol Tartrate [Lopressor] 50 mg PO BID 01/12/16 02/18/19 carBAMazepine [Tegretol] 200 mg PO BID 01/12/16 02/18/19 Cholecalciferol (D-3) [Vitamin D] 1,000 unit PO DAILY 08/10/16 02/18/19 Multivit-Min/Folic Acid/Vit K1 1 each PO DAILY 08/10/16 02/18/19 [Multi For Her 50 Plus Softgel] Atorvastatin [Lipitor] 40 mg PO DAILY 10/03/18 02/18/19 Albuterol Sulfate [Ventolin Hfa] 2 puff IH Q6H PRN 02/18/19 02/18/19 Fenofibrate Nanocrystallized 145 mg PO DAILY 02/18/19 02/18/19 [Fenofibrate] Levothyroxine Sodium 112 mcg PO QAM 02/18/19 02/18/19 Nitroglycerin [Nitrostat] 0.4 mg PO AD PRN 02/18/19 02/18/19 Allergies Allergy/AdvReac Type Severity Reaction Status Date / Time Amoxicillin Allergy Hives Verified 10/03/18 19:36 phenytoin [From Dilantin] Allergy Hives Verified 10/03/18 19:36 Sulfa (Sulfonamide Allergy See Verified 10/03/18 19:36 Antibiotics) Comments vancomycin Allergy Hives Verified 10/03/18 19:36 Past Medical History - Past Medical History Medical history: Reports: atrial fibrillation, cardiomyopathy, coronary artery disease, hyperlipidemia, hypertension, myocardial infarction, TIA, other Surgical history: Reports: coronary bypass (CABG), pacemaker/AICD, thyroidectomy Psychiatric history: Reports: no psych history - Social History Smoking Status: Former smoker Smokeless Tobacco Status: No Alcohol use: Reports: none Drug use: Reports: none Physical Exam Vital Signs Reviewed General: Patient is somnolent, not oriented to year, month, or situation. In no acute distress. Head: atraumatic, normocephalic Eye: normal appearance, PERRL, EOMI, no scleral icterus, no conjunctival injection ENT: mucous membranes moist, normal external ear exam Neck: normal inspection, trachea midline, full ROM Chest: normal inspection, symmetric chest rise Respiratory: Poor respiratory effort. Bilateral breath sounds are clear without wheezing, crackles, or rhonchi. Cardiovascular: Regular rate and rhythm. No clicks, rubs, gallops, or murmors. Normal heart sounds. Abdomen: Bowel sounds present normoactive. Abdomen is soft, nondistended, and nontender. No guarding or rebound. No organomegaly noted. Musculoskeletal: Spontaneously moving all extremities. Skin: warm, dry, intact. Neuro: GCS 15. No focal neurologic deficits observed. Psych: Patient's affect is appropriate for situation. Course Course Narrative: EKG dated 03/01/2019 at 23:44 interpreted as Ventricularly paced with a rhythm of 61. Diffuse ST elevations unchanged from comparative EKG dated 02/18/2019. Usual concern was possible infectious etiology of the patient's altered mentation. Chest x-ray is unremarkable. Urinalysis not concerning for UTI. Lab work is concerning for hepatic encephalopathy. Her liver function is markedly worse than her baseline. She also has elevated ammonia. Lactulose given. Patient has elevated creatinine and elevated BUN consistent with dehydration. 1 L IV fluid given. Patient does have elevated BNP however, this does not clinically correlate with her fluid status. Patient has no pedal edema, clear lungs, and no pulmonary edema on x-ray. I discussed the patient with the admitting hospitalist, Dr. Azevedo. He requests additional lab work as well as CT head. CT head as well as CT abdomen pelvis are unremarkable. CT abdomen pelvis does show possible cholelithiasis. I discussed this with Dr. Azevedo who will likely be ordering an inpatient right upper quadrant ultrasound. Currently hepatitis panel is pending as are acetaminophen and salicylate labs. Vital Signs Temperature 98.3 F 03/01/19 23:39 Pulse Rate 61 03/01/19 23:39 Respiratory Rate 22 03/01/19 23:39 Blood Pressure 119/62 03/01/19 23:39 O2 Sat by Pulse Oximetry 99 03/01/19 23:39 Temperature 98.3 F 03/01/19 23:39 Pulse Rate 63 03/02/19 05:42 Respiratory Rate 24 03/02/19 05:42 Blood Pressure 106/62 03/02/19 05:42 O2 Sat by Pulse Oximetry 98 03/02/19 05:42 Oxygen Delivery Oxygen Delivery Room Air Medical Decision Making - Lab Data Result diagrams: 03/02/19 00:16 03/02/19 00:16 Lab Results 03/02/19 03/02/19 03/02/19 Range/Units 00:16 00:16 00:16 WBC 13.3 H D (4.3-11.1) K/mcL RBC 4.39 (3.82-4.97) M/mcL Hgb 13.4 D (11.5-15.4) g/dL Hct 42.0 (35.3-44.9) % MCV 95.7 (83.0-100.0) fL MCH 30.5 (28.0-33.3) pg MCHC 31.9 (31.6-35.5) g/dL RDW 15.8 H (11.5-14.5) % Plt Count 164 (140-400) K/mcL MPV 10.1 (9.4-12.4) fL Immature Gran % 0.7 (0-4) % Seg Neutrophils % 75.0 % Lymphocytes % 12.4 % Monocytes % 11.1 % Eosinophils % 0.4 % Basophils % 0.4 % Neutrophils # 10.0 H (1.6-8.9) K/mcL Lymphocytes # 1.7 (0.6-4.6) K/mcL Monocytes # 1.5 H (0.0-1.3) K/mcL Eosinophils # 0.1 (0.0-0.6) K/mcL Basophils # 0.1 (0.0-0.2) K/mcL Platelet Estimate Normal (Normal) PT (9.4-12.1) Seconds INR Sodium 133 L (136-145) mEq/L Potassium 4.2 (3.5-5.1) mEq/L Chloride 98 (98-107) mEq/L Carbon Dioxide 17 L (23-29) mEq/L BUN 67 H (8-23) mg/dL Creatinine 1.60 H (0.60-1.20) mg/dL Est GFR ( Amer) 37 L (> 60) Est GFR (Non-Af Amer) 31 L (> 60) BUN/Creatinine Ratio 42 H (6-26) Glucose 292 H (70-105) mg/dL Calculated Osmolality 306 H (280-300) Lactic Acid 4.8 H* (0.5-2.2) mmol/L Calcium 9.2 (8.6-10.3) mg/dL Magnesium (1.6-2.6) mg/dL Total Bilirubin 0.9 (0.3-1.0) mg/dL Direct Bilirubin 0.4 H (0.0-0.2) mg/dL Indirect Bilirubin 0.5 (0.0-1.2) mg/dL AST 907 H (13-39) Units/L ALT 588 H (7-52) Units/L Alkaline Phosphatase 145 H (34-104) Units/L Ammonia (16-53) mcmol/L Troponin I 0.08 H* (< 0.04) ng/mL B-Natriuretic Peptide (Less than 100) pg/mL Serum Total Protein 6.4 (6.4-8.9) g/dL Albumin 3.7 (3.5-5.7) g/dL Globulin 2.7 (2.4-3.5) g/dL Albumin/Globulin Ratio 1.4 (1.1-2.2) Urine Color (Yellow) Urine Clarity (Clear) Urine pH (5.0-8.0) pH Units Ur Specific [place] (1.010-1.025) Urine Protein (Neg-Trace) mg/dL Urine Glucose (UA) (Normal) mg/dL Urine Ketones (Negative) mg/dL Urine Blood (Negative) Urine Nitrite (Negative) Urine Bilirubin (Negative) Urine Urobilinogen (Normal) mg/dL Ur Leukocyte Esterase (Negative) Urine Microscopic RBC (0-3) per hpf Urine Microscopic WBC (0-3) per hpf Ur Squamous Epith Cells (None-Few) per lpf Urine Bacteria (None-Few) per hpf Ur Culture Indicated? (NO) Salicylates (15.0-30.0) mg/dL Urine Opiates Screen (Iikovq=052) ng/mL Acetaminophen (10-20) mcg/mL Ur Barbiturates Screen (Kqqebp=240) ng/mL Ur Phencyclidine Scrn (Cutoff=25) ng/mL Ur Amphetamines Screen (Uefdgc=5975) ng/mL U Benzodiazepines Scrn (Slgymo=210) ng/mL Urine Cocaine Screen (Cutoff= 300) ng/mL U Marijuana (THC) Screen (Cutoff = 50) ng/mL Ur Drug Screen Interp 03/02/19 03/02/19 03/02/19 Range/Units 00:16 00:16 00:16 WBC (4.3-11.1) K/mcL RBC (3.82-4.97) M/mcL Hgb (11.5-15.4) g/dL Hct (35.3-44.9) % MCV (83.0-100.0) fL MCH (28.0-33.3) pg MCHC (31.6-35.5) g/dL RDW (11.5-14.5) % Plt Count (140-400) K/mcL MPV (9.4-12.4) fL Immature Gran % (0-4) % Seg Neutrophils % % Lymphocytes % % Monocytes % % Eosinophils % % Basophils % % Neutrophils # (1.6-8.9) K/mcL Lymphocytes # (0.6-4.6) K/mcL Monocytes # (0.0-1.3) K/mcL Eosinophils # (0.0-0.6) K/mcL Basophils # (0.0-0.2) K/mcL Platelet Estimate (Normal) PT (9.4-12.1) Seconds INR Sodium (136-145) mEq/L Potassium (3.5-5.1) mEq/L Chloride (98-107) mEq/L Carbon Dioxide (23-29) mEq/L BUN (8-23) mg/dL Creatinine (0.60-1.20) mg/dL Est GFR ( Amer) (> 60) Est GFR (Non-Af Amer) (> 60) BUN/Creatinine Ratio (6-26) Glucose (70-105) mg/dL Calculated Osmolality (280-300) Lactic Acid (0.5-2.2) mmol/L Calcium (8.6-10.3) mg/dL Magnesium 1.8 (1.6-2.6) mg/dL Total Bilirubin (0.3-1.0) mg/dL Direct Bilirubin (0.0-0.2) mg/dL Indirect Bilirubin (0.0-1.2) mg/dL AST (13-39) Units/L ALT (7-52) Units/L Alkaline Phosphatase (34-104) Units/L Ammonia 64 H (16-53) mcmol/L Troponin I (< 0.04) ng/mL B-Natriuretic Peptide 1868 H (Less than 100) pg/mL Serum Total Protein (6.4-8.9) g/dL Albumin (3.5-5.7) g/dL Globulin (2.4-3.5) g/dL Albumin/Globulin Ratio (1.1-2.2) Urine Color (Yellow) Urine Clarity (Clear) Urine pH (5.0-8.0) pH Units Ur Specific [place] (1.010-1.025) Urine Protein (Neg-Trace) mg/dL Urine Glucose (UA) (Normal) mg/dL Urine Ketones (Negative) mg/dL Urine Blood (Negative) Urine Nitrite (Negative) Urine Bilirubin (Negative) Urine Urobilinogen (Normal) mg/dL Ur Leukocyte Esterase (Negative) Urine Microscopic RBC (0-3) per hpf Urine Microscopic WBC (0-3) per hpf Ur Squamous Epith Cells (None-Few) per lpf Urine Bacteria (None-Few) per hpf Ur Culture Indicated? (NO) Salicylates (15.0-30.0) mg/dL Urine Opiates Screen (Nhonbr=278) ng/mL Acetaminophen (10-20) mcg/mL Ur Barbiturates Screen (Txgjsz=859) ng/mL Ur Phencyclidine Scrn (Cutoff=25) ng/mL Ur Amphetamines Screen (Dxhdof=0355) ng/mL U Benzodiazepines Scrn (Fbiefo=165) ng/mL Urine Cocaine Screen (Cutoff= 300) ng/mL U Marijuana (THC) Screen (Cutoff = 50) ng/mL Ur Drug Screen Interp 03/02/19 03/02/19 03/02/19 Range/Units 00:30 00:30 04:25 WBC (4.3-11.1) K/mcL RBC (3.82-4.97) M/mcL Hgb (11.5-15.4) g/dL Hct (35.3-44.9) % MCV (83.0-100.0) fL MCH (28.0-33.3) pg MCHC (31.6-35.5) g/dL RDW (11.5-14.5) % Plt Count (140-400) K/mcL MPV (9.4-12.4) fL Immature Gran % (0-4) % Seg Neutrophils % % Lymphocytes % % Monocytes % % Eosinophils % % Basophils % % Neutrophils # (1.6-8.9) K/mcL Lymphocytes # (0.6-4.6) K/mcL Monocytes # (0.0-1.3) K/mcL Eosinophils # (0.0-0.6) K/mcL Basophils # (0.0-0.2) K/mcL Platelet Estimate (Normal) PT (9.4-12.1) Seconds INR Sodium (136-145) mEq/L Potassium (3.5-5.1) mEq/L Chloride (98-107) mEq/L Carbon Dioxide (23-29) mEq/L BUN (8-23) mg/dL Creatinine (0.60-1.20) mg/dL Est GFR ( Amer) (> 60) Est GFR (Non-Af Amer) (> 60) BUN/Creatinine Ratio (6-26) Glucose (70-105) mg/dL Calculated Osmolality (280-300) Lactic Acid 3.9 H (0.5-2.2) mmol/L Calcium (8.6-10.3) mg/dL Magnesium (1.6-2.6) mg/dL Total Bilirubin (0.3-1.0) mg/dL Direct Bilirubin (0.0-0.2) mg/dL Indirect Bilirubin (0.0-1.2) mg/dL AST (13-39) Units/L ALT (7-52) Units/L Alkaline Phosphatase (34-104) Units/L Ammonia (16-53) mcmol/L Troponin I (< 0.04) ng/mL B-Natriuretic Peptide (Less than 100) pg/mL Serum Total Protein (6.4-8.9) g/dL Albumin (3.5-5.7) g/dL Globulin (2.4-3.5) g/dL Albumin/Globulin Ratio (1.1-2.2) Urine Color Dark Yellow (Yellow) Urine Clarity Cloudy A (Clear) Urine pH 5.0 (5.0-8.0) pH Units Ur Specific [place] 1.011 (1.010-1.025) Urine Protein 30 H (Neg-Trace) mg/dL Urine Glucose (UA) Normal (Normal) mg/dL Urine Ketones Negative (Negative) mg/dL Urine Blood Negative (Negative) Urine Nitrite Negative (Negative) Urine Bilirubin Negative (Negative) Urine Urobilinogen Normal (Normal) mg/dL Ur Leukocyte Esterase Trace H (Negative) Urine Microscopic RBC 0-3 (0-3) per hpf Urine Microscopic WBC 3-5 H (0-3) per hpf Ur Squamous Epith Cells Many H (None-Few) per lpf Urine Bacteria None Seen (None-Few) per hpf Ur Culture Indicated? YES A (NO) Salicylates (15.0-30.0) mg/dL Urine Opiates Screen Negative (Eteick=192) ng/mL Acetaminophen (10-20) mcg/mL Ur Barbiturates Screen Negative (Rttlyl=919) ng/mL Ur Phencyclidine Scrn Negative (Cutoff=25) ng/mL Ur Amphetamines Screen Negative (Yykbji=1094) ng/mL U Benzodiazepines Scrn Negative (Fkyveo=872) ng/mL Urine Cocaine Screen Negative (Cutoff= 300) ng/mL U Marijuana (THC) Screen Negative (Cutoff = 50) ng/mL Ur Drug Screen Interp See Below 03/02/19 03/02/19 Range/Units 06:02 06:02 WBC (4.3-11.1) K/mcL RBC (3.82-4.97) M/mcL Hgb (11.5-15.4) g/dL Hct (35.3-44.9) % MCV (83.0-100.0) fL MCH (28.0-33.3) pg MCHC (31.6-35.5) g/dL RDW (11.5-14.5) % Plt Count (140-400) K/mcL MPV (9.4-12.4) fL Immature Gran % (0-4) % Seg Neutrophils % % Lymphocytes % % Monocytes % % Eosinophils % % Basophils % % Neutrophils # (1.6-8.9) K/mcL Lymphocytes # (0.6-4.6) K/mcL Monocytes # (0.0-1.3) K/mcL Eosinophils # (0.0-0.6) K/mcL Basophils # (0.0-0.2) K/mcL Platelet Estimate (Normal) PT 26.8 H (9.4-12.1) Seconds INR 2.4 Sodium (136-145) mEq/L Potassium (3.5-5.1) mEq/L Chloride (98-107) mEq/L Carbon Dioxide (23-29) mEq/L BUN (8-23) mg/dL Creatinine (0.60-1.20) mg/dL Est GFR ( Amer) (> 60) Est GFR (Non-Af Amer) (> 60) BUN/Creatinine Ratio (6-26) Glucose (70-105) mg/dL Calculated Osmolality (280-300) Lactic Acid (0.5-2.2) mmol/L Calcium (8.6-10.3) mg/dL Magnesium (1.6-2.6) mg/dL Total Bilirubin (0.3-1.0) mg/dL Direct Bilirubin (0.0-0.2) mg/dL Indirect Bilirubin (0.0-1.2) mg/dL AST (13-39) Units/L ALT (7-52) Units/L Alkaline Phosphatase (34-104) Units/L Ammonia (16-53) mcmol/L Troponin I (< 0.04) ng/mL B-Natriuretic Peptide (Less than 100) pg/mL Serum Total Protein (6.4-8.9) g/dL Albumin (3.5-5.7) g/dL Globulin (2.4-3.5) g/dL Albumin/Globulin Ratio (1.1-2.2) Urine Color (Yellow) Urine Clarity (Clear) Urine pH (5.0-8.0) pH Units Ur Specific [place] (1.010-1.025) Urine Protein (Neg-Trace) mg/dL Urine Glucose (UA) (Normal) mg/dL Urine Ketones (Negative) mg/dL Urine Blood (Negative) Urine Nitrite (Negative) Urine Bilirubin (Negative) Urine Urobilinogen (Normal) mg/dL Ur Leukocyte Esterase (Negative) Urine Microscopic RBC (0-3) per hpf Urine Microscopic WBC (0-3) per hpf Ur Squamous Epith Cells (None-Few) per lpf Urine Bacteria (None-Few) per hpf Ur Culture Indicated? (NO) Salicylates < 2.5 L (15.0-30.0) mg/dL Urine Opiates Screen (Qfrqho=034) ng/mL Acetaminophen 11 (10-20) mcg/mL Ur Barbiturates Screen (Bwtnar=745) ng/mL Ur Phencyclidine Scrn (Cutoff=25) ng/mL Ur Amphetamines Screen (Hitlrx=5529) ng/mL U Benzodiazepines Scrn (Xogguh=854) ng/mL Urine Cocaine Screen (Cutoff= 300) ng/mL U Marijuana (THC) Screen (Cutoff = 50) ng/mL Ur Drug Screen Interp Critical Care Time Critical Care Time: Yes Total Critical Care Time: 35 Attestation: Acute altered mental status with uremia and dehydration requiring fluid resuscitation Attestation Statement - Attestation Attestation: Dr. Tao note: Patient was seen in conjunction with emergency medicine resident Dr. Amaya. Please see his charting for complete documentation. I spent [id number] time with the patient and I agree with the patient's treatment and disposition. Progressive deterioration in mental status over the last couple days according to daughter bedside. Patient is afebrile and pain-free. Vital signs are stable yet her insight is poor she is alert to self, place or time. Acute uremia noted. Elevation of liver enzymes are noted without elevation in total bilirub in. Patient has no abdominal pain at this time. Will be admitted for hydration and further care to the hospitalist Dr. Roth. at 5 AM.
[2019-03-02 00:29] LABS: Basophils # 0.1 K/mcL (0.0-0.2); Basophils % 0.4 %; Eosinophils # 0.1 K/mcL (0.0-0.6); Eosinophils % 0.4 %; Immature Granulocytes % 0.7 % (0-4); Lymphocytes # 1.7 K/mcL (0.6-4.6); Lymphocytes % 12.4 %; Mean Corpuscular HGB Conc 31.9 g/dL (31.6-35.5); Mean Corpuscular Hemoglobin 30.5 pg (28.0-33.3); Mean Corpuscular Volume 95.7 fL (83.0-100.0); Mean Platelet Volume 10.1 fL (9.4-12.4); Monocytes # 1.5 K/mcL (0.0-1.3); Monocytes % 11.1 %; Platelet Count 164 K/mcL (140-400); Red Blood Count 4.39 M/mcL (3.82-4.97); Red Cell Distribution Width 15.8 % (11.5-14.5)
[2019-03-02 00:32] LABS: Hemoglobin 13.4 g/dL (11.5-15.4)
[2019-03-02 00:51] LABS: Bilirubin,Urine Negative (Negative); Blood,Urine Negative (Negative); Clarity,Urine Cloudy (Clear); Color,Urine Dark Yellow (Yellow); Glucose,Urine (UA) Normal (Normal); Ketones,Urine Negative (Negative); Leukocyte Esterase,Urine Trace (Negative); Nitrite,Urine Negative (Negative); Protein,Urine 30 mg/dL (Neg-Trace); Specific Gravity,Urine 1.011 (1.010-1.025); Urobilinogen,Urine Normal (Normal)
[2019-03-02 00:55] LABS: Bacteria,Urine None Seen per hpf (None-Few); RBC,Urine 0-3 per hpf (0-3); Squamous Epithelial Cell,Urine Many per lpf (None-Few)
[2019-03-02 01:07] LABS: Platelet Estimate Normal (Normal)
[2019-03-02 01:52] LABS: Albumin 3.7 g/dL (3.5-5.7); Bilirubin,Total 0.9 mg/dL (0.3-1.0); Calcium 9.2 mg/dL (8.6-10.3); Potassium 4.2 mEq/L (3.5-5.1); Troponin I 0.08 ng/mL (< 0.04)
[2019-03-02] MEDS ORDERED: Aspirin 325 MG TABLET PO ONE (01:53)
[2019-03-02 02:50] LABS: Bilirubin,Direct 0.4 mg/dL (0.0-0.2); Bilirubin,Indirect 0.5 mg/dL (0.0-1.2)
[2019-03-02] MEDS ORDERED: 0.9 % Sodium Chloride 1,000 ML IVC ONE (02:50)
[2019-03-02 03:22] LABS: Albumin/Globulin Ratio 1.4 (1.1-2.2); Globulin 2.7 g/dL (2.4-3.5); Total Protein 6.4 g/dL (6.4-8.9)
[2019-03-02] MEDS ORDERED: Lactulose Oral Soln 20 GM/30 ML UDC PO ONE (04:01)
[2019-03-02 05:28] LABS: Amphetamine Screen,Urine Negative ng/mL (Cutoff=1000); Barbiturate Screen,Urine Negative ng/mL (Cutoff=200); Benzodiazepines Screen,Urine Negative ng/mL (Cutoff=200); Cannabinoid Screen,Urine Negative ng/mL (Cutoff = 50); Cocaine Screen,Urine Negative ng/mL (Cutoff= 300); Opiate Screen,Urine Negative ng/mL (Cutoff=300); Phencyclidine Screen,Urine Negative ng/mL (Cutoff=25)
[2019-03-02 06:18] LABS: Hepatitis B Surface Antigen Nonreactive (Nonreactive)
[2019-03-02 06:23] LABS: INR 2.4; Prothrombin Time 26.8 Seconds (9.4-12.1)
[2019-03-02] MEDS ORDERED: 0.9 % Sodium Chloride 500 ML IVC ONE (06:28)
[2019-03-02 06:31] LABS: Acetaminophen 11 mcg/mL (10-20); Salicylate < 2.5 mg/dL (15.0-30.0)
[2019-03-02 06:46] LABS: Hepatitis B Core IgM Nonreactive (Nonreactive)
[2019-03-02 06:47] LABS: Hepatitis C Virus Antibody Nonreactive (Nonreactive)
[2019-03-02 06:48] LABS: Hepatitis A Antibody IgM Nonreactive (Nonreactive)
--- NOTE | 2019-03-02 10:03 | Internal Med History&Physical ---
Date of Encounter: 03/02/19 Time of Encounter: 06:35 Internal Medicine - H&P: HPI Chief complaint: Confusion History of present illness: 84-year-old female with past medical history of history of Atrial fibrillation rate that is controlled on metoprolol and digoxin. No anticoagulation secondary to history of intracranial hemorrhage. CAD on Plavix. Pulmonary hypertension. Hypothyroidism on levothyroxine. Hyperlipidemia who was discharged from this hospital 6 days ago with diagnosis of UTI and was brought by her family for worsening confusion. the family stated that the patient is absolutely independent and functional at baseline, however after her discharge from the hospital, her clinical condition continued to detect to deteriorate, and she is hardly out of bed due to confusion and somnolence. the patient couldn't provide any history due to her mental status, most the history was obtained from the family and medical record, her laboratory data was evident for transaminitis that is much worsening from prior reported laboratory data. I spoke with GI [facility] consultant, and discussed the case and there was a concern about autoimmune hepatitis, an liver ultrasound was recommended, and continuation of current management including lactulose was also recommended. Past Med Surg Social Fam HX - Past Medical History Medical history: atrial fibrillation, cardiomyopathy, coronary artery disease, hyperlipidemia, hypertension, myocardial infarction, TIA, other Additional medical history: LIPOMA. ANEMIA. SKIN CANCER Psychiatric history: no psych history - Past Surgical History Surgical History: coronary bypass (CABG), pacemaker/AICD, thyroidectomy - Social History Smoking Status: Former smoker Smokeless Tobacco Status: No Alcohol use: none Drug use: none - Family History Brother Living Status: Still Living Hx Family Cardiac Disorders: Yes Son Living Status: Still Living Hx Family Cardiac Disorders: Yes Mother Hx Family Cardiac Disorders: Yes (CAD, Bypass, HTN, [place]) Hx Family Respiratory Disorders: No Hx Family Cancer: No Hx Family GI Disorders: No Hx Family Endocrine Disorder: No Hx Family Neuromuscular Disorders: No Hx Family Neurologic Disorders: Yes (Dementia) Hx Family HEENT Disorders: No Hx Family Autoimmune Disorders: No Internal Medicine - H&P: Meds Clopidogrel [Plavix] 75 mg PO DAILY 01/12/16 [History] Digoxin [Lanoxin] 0.125 mg PO DAILY 01/12/16 [History] Metoprolol Tartrate [Lopressor] 50 mg PO BID 01/12/16 [History] carBAMazepine [Tegretol] 200 mg PO BID 01/12/16 [History] Cholecalciferol (D-3) [Vitamin D] 1,000 unit PO DAILY 08/10/16 [History] Multivit-Min/Folic Acid/Vit K1 [Multi For Her 50 Plus Softgel] 1 each PO DAILY 08/10/16 [History] Atorvastatin [Lipitor] 40 mg PO DAILY 10/03/18 [History] Albuterol Sulfate [Ventolin Hfa] 2 puff IH Q6H PRN 02/18/19 [History] Fenofibrate Nanocrystallized [Fenofibrate] 145 mg PO DAILY 02/18/19 [History] Levothyroxine Sodium 112 mcg PO QAM 02/18/19 [History] Nitroglycerin [Nitrostat] 0.4 mg PO AD PRN 02/18/19 [History] Furosemide [Lasix] 20 mg PO DAILY 03/02/19 [History] Allergy/AdvReac Type Severity Reaction Status Date / Time Amoxicillin Allergy Hives Verified 10/03/18 19:36 phenytoin [From Dilantin] Allergy Hives Verified 10/03/18 19:36 Sulfa (Sulfonamide Allergy See Verified 10/03/18 19:36 Antibiotics) Comments vancomycin Allergy Hives Verified 10/03/18 19:36 ROS unobtainable: due to mental status - Constitutional Vitals: Temp Pulse Resp BP Pulse Ox 98.1 F 63 17 112/64 97 03/02/19 08:20 03/02/19 08:20 03/02/19 08:20 03/02/19 08:20 03/02/19 08:20 Exam: As below - Head Head exam: Present: atraumatic, normocephalic - Eye Eye exam: Present: PERRL, conjuntiva pink, sclera anicteric Pupils: Present: PERRL - Neck Neck exam general surgery: Present: supple, trachea midline. Absent: lymphadenopathy - Respiratory Respiratory exam: Present: CTAB. Absent: accessory muscle use, rales, rhonchi, wheezes - Cardiovascular Cardiovascular exam: Present: RRR, +S1, +S2. Absent: diastolic murmur, gallop, rubs, systolic murmur - GI/Abdominal GI/Abdominal exam: Present: normal bowel sounds, soft, no peritoneal signs. Absent: distended, tenderness - Extremities Exam Extremities exam: Present: warm, radial pulses palpable and symmetrical. Absent: calf tenderness, cyanotic, pedal edema - Neurological Exam Neurological exam: Present: CN II-XII intact, oriented X3, no focal deficits. Absent: pronater drift, facial droop, speech deficit - Skin Skin exam: Present: dry, intact Internal Med - H&P Results - Labs CBC & Chem 7: 03/03/19 11:12 03/03/19 09:55 Labs: Short CBC 03/02/19 Range/Units 00:16 WBC 13.3 H D (4.3-11.1) K/mcL Hgb 13.4 D (11.5-15.4) g/dL Hct 42.0 (35.3-44.9) % Plt Count 164 (140-400) K/mcL Neutrophils # 10.0 H (1.6-8.9) K/mcL BMP 03/02/19 00:16 Sodium 133 L Potassium 4.2 Chloride 98 Carbon Dioxide 17 L BUN 67 H Creatinine 1.60 H Glucose 292 H Calcium 9.2 Cardiac Enzymes 03/02/19 Range/Units 00:16 Troponin I 0.08 H* (< 0.04) ng/mL Liver Function 03/02/19 Range/Units 00:16 Total Bilirubin 0.9 (0.3-1.0) mg/dL Direct Bilirubin 0.4 H (0.0-0.2) mg/dL AST 907 H (13-39) Units/L ALT 588 H (7-52) Units/L Alkaline Phosphatase 145 H (34-104) Units/L Albumin 3.7 (3.5-5.7) g/dL Urine 03/02/19 Range/Units 00:30 Urine Color Dark Yellow (Yellow) Urine Clarity Cloudy A (Clear) Urine pH 5.0 (5.0-8.0) pH Units Ur Specific [place] 1.011 (1.010-1.025) Urine Protein 30 H (Neg-Trace) mg/dL Urine Glucose (UA) Normal (Normal) mg/dL - Impressions ITS Impressions Abdomen/Pelvis CT 03/02/19 03:32 IMPRESSION: Questionable cholelithiasis. Haziness about the gallbladder may be accentuated by motion artifact. This could represent a small amount of pericholecystic fluid which could be further evaluated with gallbladder ultrasound as warranted. Slightly nodular liver contour may relate to underlying hepatocellular disease. Haziness about the pancreatic head may be accentuated by motion artifact and could relate to acute pancreatitis. Consider correlation with appropriate lab values as warranted. Small amount of nonspecific free fluid in the pelvis. No obstructive uropathy. Colonic diverticulosis without acute diverticulitis. D/ / Carrington Sessions / Carrington Sessions Interpreting Provider: Carrington Sessions Head CT 03/02/19 04:07 IMPRESSION: No acute intracranial hemorrhage or mass effect. Moderate chronic small vessel ischemic disease. Diffuse ventricular prominence is similar to the prior study and could relate to central volume loss. Component of normal pressure hydrocephalus should also be considered in the appropriate clinical setting. D/ / Carrington Sessions / Carrington Sessions Interpreting Provider: Carrington Sessions Chest X-Ray 03/02/19 23:31 IMPRESSION: No acute findings D/ / Radha Olmstead MD / Radha Olmstead MD Interpreting Provider: Radha Olmstead MD - Assessment and Plan (1) Acute metabolic encephalopathy Status: Acute Assessment and plan: we will start the patient on lactulose, repeat ammonia level, GI was consulted for further evaluation, we will obtain liver ultrasound, and hold all medication that could be leading to drug induced autoimmune hepatitis, Shock liver secondary to underling infectious process cannot be excluded. (2) Hypertension, essential Status: Chronic Assessment and plan: we will start the patient on when necessary antihypertensive (3) Coronary artery disease Status: Chronic Qualifiers: Coronary Disease-Associated Artery/Lesion type: [place] artery [place] vs. transplanted heart: [place] heart Associated angina: without angina Qualified Code(s): I25.10 - Atherosclerotic heart disease of [place] coronary artery without angina pectoris (4) UTI (urinary tract infection) Status: Chronic Assessment and plan: we will continue ceftriaxone and obtain urine culture and adjust antibiotic regimen accordingly Qualifiers: Urinary tract infection type: acute cystitis Hematuria presence: with hematuria Qualified Code(s): N30.01 - Acute cystitis with hematuria (5) Hypothyroid Status: Chronic Assessment and plan: without holding levothyroxine for now since it could be also related to autoimmune hepatitis Qualifiers: Hypothyroidism type: acquired Qualified Code(s): E03.9 - Hypothyroidism, unspecified (6) Transaminitis Status: Acute Assessment and plan: The patient liver enzymes is in 100s, differential diagnosis including shock liver (7) Hyperlipidemia Status: Chronic Assessment and plan: we will hold statin given the reported transaminitis Qualifiers: Hyperlipidemia type: unspecified Qualified Code(s): E78.5 - Hyperlipidemia, unspecified (8) Lactic acidemia Status: Acute Assessment and plan: most likely secondary to underlying infectious etiology in the setting of UTI, we will continue antibiotics, fluids and repeat lactic acid (9) Afib Status: Chronic Assessment and plan: we are holding digoxin and metoprolol due to possible autoimmune hepatitis, we will monitor the patient heart rate and manage accordingly Qualifiers: Atrial fibrillation type: chronic Qualified Code(s): I48.2 - Chronic atrial fibrillation (10) DVT prophylaxis Status: Acute - Time Spent With Patient Total time spent is greater than 50% in coordination of care (as documented) at patient's floor/unit and/or counseling patient:
[2019-03-02] MEDS ORDERED: Ondansetron 4 MG/2 ML VIAL IVP PRN (10:07)
[2019-03-02] MEDS ORDERED: Naloxone 0.4 MG/ML INJ IVP PRN (10:07)
[2019-03-02 10:22] LABS: Basophils % 0.3 %; Eosinophils % 0.3 %; Hematocrit 38.6 % (35.3-44.9); Hemoglobin 12.2 g/dL (11.5-15.4); Immature Granulocytes % 0.7 % (0-4); Lymphocytes # 1.2 K/mcL (0.6-4.6); Lymphocytes % 12.5 %; Mean Corpuscular HGB Conc 31.6 g/dL (31.6-35.5); Mean Corpuscular Hemoglobin 29.7 pg (28.0-33.3); Mean Corpuscular Volume 93.9 fL (83.0-100.0); Mean Platelet Volume 9.9 fL (9.4-12.4); Monocytes # 1.3 K/mcL (0.0-1.3); Monocytes % 13.3 %; Neutrophils # 7.1 K/mcL (1.6-8.9); Platelet Count 135 K/mcL (140-400); Red Blood Count 4.11 M/mcL (3.82-4.97); Red Cell Distribution Width 15.8 % (11.5-14.5); Segmented Neutrophils % 72.9 %
[2019-03-02] MEDS: 0.9 % Sodium Chloride 1,000 ML IVC SCH ×2 (10:29→20:13)
[2019-03-02 10:50] LABS: Troponin I 0.08 ng/mL (< 0.04)
[2019-03-02 10:59] LABS: Albumin 3.7 g/dL (3.5-5.7); Albumin/Globulin Ratio 1.7 (1.1-2.2); Bilirubin,Total 0.7 mg/dL (0.3-1.0); Calcium 8.5 mg/dL (8.6-10.3); Globulin 2.2 g/dL (2.4-3.5); Potassium 3.6 mEq/L (3.5-5.1); Total Protein 5.9 g/dL (6.4-8.9)
[2019-03-02] MEDS ORDERED: cefTRIAXone 2,000 MG in Water for inj. (sterile) 20 ML 20 ML IVP SCH (11:00)
[2019-03-02 11:24] LABS: Troponin I 0.08 ng/mL (< 0.04)
[2019-03-02] MEDS: Lactulose Oral Soln 20 GM/30 ML UDC PO SCH ×2 (16:22→20:12)
[2019-03-02 18:40] LABS: Magnesium 1.7 mg/dL (1.6-2.6); Phosphorous 3.9 mg/dL (2.7-4.5)
[2019-03-02 19:28] LABS: Alanine Aminotransferase > 5000 Units/L (7-52); Albumin 3.6 g/dL (3.5-5.7); Albumin/Globulin Ratio 1.3 (1.1-2.2); Alkaline Phosphatase 116 Units/L (34-104); Aspartate Amino Transferase > 3000 Units/L (13-39); BUN/Creatinine Ratio 52 (6-26); Bilirubin,Direct 0.3 mg/dL (0.0-0.2); Bilirubin,Indirect 0.5 mg/dL (0.0-1.2); Bilirubin,Total 0.8 mg/dL (0.3-1.0); Blood Urea Nitrogen 66 mg/dL (8-23); Calcium 8.6 mg/dL (8.6-10.3); Carbon Dioxide 17 mEq/L (23-29); Chloride 106 mEq/L (98-107); Globulin 2.7 g/dL (2.4-3.5); Glucose 182 mg/dL (70-105); Osmolality,Calculated 314 (280-300); Potassium 3.8 mEq/L (3.5-5.1); Sodium 140 mEq/L (136-145); Total Protein 6.3 g/dL (6.4-8.9); eGFR For Non-African Americans 40 (> 60)
[2019-03-03 01:33] LABS: INR 2.4; Prothrombin Time 27.1 Seconds (9.4-12.1)
[2019-03-03 01:35] LABS: Activated Partial Thrombo Time 29.3 Seconds (26.0-36.0)
[2019-03-03 01:36] LABS: Chol/HDL Ratio 8.4 (0-4.9); Magnesium 1.8 mg/dL (1.6-2.6)
[2019-03-03] MEDS ORDERED: 0.9 % Sodium Chloride 500 ML IVC ONE (02:56)
--- NOTE | 2019-03-03 03:14 | Event Note ---
Date of Encounter: 03/03/19 Time of Encounter: 00:01 Alerted by patient's nurse KHARI Hill that patient had a third troponin of 0.08, previously 0.07, and 0.08. Patient continues to have no complaints of chest pain but is still confused. Lactulose as ordered. Ammonia at 22:10 on 03/02/19 was 63. Will continue lactulose. Previous lactic on 03/02 at 10:45 was 3.0. Repeat lactic ordered which is 3.6. Pt. meeting sepsis criteria w/temp of 96.3, HR of 94, and UTI infection. 500 ml bolus of 0.9 NS ordered. Will resume IV fluids @100 mls/hr following bolus. Repeat lactic ordered for 05:00. Patient is currently on ceftriaxone 2000 mg every 24 hours for infection coverage. Will continue to monitor pt. and f/u labs closely. Nurse instructed to continue monitoring the pt. very closely and alert me immediately of any adverse changes or signs of increasing infection.
[2019-03-03] MEDS: 0.9 % Sodium Chloride 1,000 ML IVC SCH (06:04)
[2019-03-03] MEDS: Lactulose Oral Soln 20 GM/30 ML UDC PO SCH ×3 (07:35→13:52)
[2019-03-03] MEDS ORDERED: Lactulose Oral Soln 20 GM/30 ML UDC PO ONE (08:04)
[2019-03-03] MEDS ORDERED: Cefepime HCl 1,000 MG in Water for inj. (sterile) 20 ML 10 ML IVP SCH (08:06)
[2019-03-03] MEDS ORDERED: Clindamycin 300 MG in D5% in Water 50 ML IVPB SCH (08:07)
[2019-03-03] MEDS ORDERED: Cefepime HCl 2,000 MG in Water for inj. (sterile) 20 ML 20 ML IVP SCH (08:30)
--- NOTE | 2019-03-03 10:30 | Discharge Summary ---
- NOTES TO OUTPATIENT PROVIDER Notes to Outpatient Provider: admitted for liver failure, being transferred to [facility] for higher level of care Orders not resulted at time of discharge: Pending orders 03/01/19 23:32 TSH Receptor Antibody Stat 03/02/19 10:00 Culture,Blood [BC] Stat 03/02/19 14:03 Liver Ultrasound [US liver] [US] Stat 03/03/19 04:00 Urinalysis reflex Microscopic [URIN] AM 0400 03/03/19 07:50 Complete Blood Count [HEME] Stat Comprehensive Metabolic Panel Stat Magnesium Stat Phosphorous Stat 03/03/19 09:55 Ammonia Stat Date of Encounter: 03/03/19 Time of Encounter: 08:05 - Discharge Diagnosis (1) Acute metabolic encephalopathy Priority: Primary Status: Acute (2) Shock liver Priority: Primary Status: Acute (3) Lactic acidemia Priority: Primary Status: Acute (4) Transaminitis Priority: Primary Status: Acute (5) Coronary artery disease Priority: Secondary Status: Chronic Qualifiers: Coronary Disease-Associated Artery/Lesion type: [place] artery [place] vs. transplanted heart: [place] heart Associated angina: without angina Qualified Code(s): I25.10 - Atherosclerotic heart disease of [place] coronary artery without angina pectoris (6) Hypertension, essential Priority: Secondary Status: Chronic (7) Afib Priority: Secondary Status: Chronic Qualifiers: Atrial fibrillation type: chronic Qualified Code(s): I48.2 - Chronic atrial fibrillation (8) UTI (urinary tract infection) Priority: Secondary Status: Chronic Qualifiers: Urinary tract infection type: acute cystitis Hematuria presence: with hematuria Qualified Code(s): N30.01 - Acute cystitis with hematuria (9) Hypothyroid Priority: Secondary Status: Chronic Qualifiers: Hypothyroidism type: acquired Qualified Code(s): E03.9 - Hypothyroidism, unspecified (10) Hyperlipidemia Priority: Secondary Status: Chronic Qualifiers: Hyperlipidemia type: unspecified Qualified Code(s): E78.5 - Hyperlipidemia, unspecified Hospital course: Ms. Shultz is a 84 year old female with PMH of Afib not on anticoagulation due to hx of intracranial hemorrhage, cardiomyopathy, coronary artery disease, hypertension, hyperlipidemia, TIA who is transferred from an outside facility for management of acute mental status change. After further workup, patient was noted to have acute metabolic encephalopathy likely secondary to shock liver. Patient is noted to have elevated transaminitis which have exponentially worsened in less than 24 hours. GI (Dr. Mahoney), has been consulted and has recommended transfer to [facility] for higher level of care. [facility] transfer center was contacted and patient has been accepted under the care of Dr. Harish Duarte to their ICU. Patient and family are in agreement to the transfer care and plan. Patient's daughter Carmelita Joseph ([phone]) is patient's power of solar/renewable energy sales and is in agreement with the transfer. Patient's currently on broad-spectrum IV antibiotics with cefepime and clindamycin. Her lactulose dose has been increased. Patient is medically stable for transfer to [facility] pending bed availability. I spoke with the [facility] transfer centerline, due to no ICU bed availability, transfer will be delayed, however patient is on there acceptance list. I am calling the neighboring hospitals with the hepatology Department who can accommodate the patient earlier than [facility]. [facility] will be updated if patient is transferred to another facility. Patient's family is in agreement to this plan. - Time Spent with Patient Total time spent providing and/or coordinating discharge services: 45 minutes Time spent: Greater than 30 minutes - Discharge Medications Prescriptions: Continued Metoprolol Tartrate [Lopressor] 50 mg PO BID Digoxin [Lanoxin] 0.125 mg PO DAILY Clopidogrel [Plavix] 75 mg PO DAILY carBAMazepine [Tegretol] 200 mg PO BID Cholecalciferol (D-3) [Vitamin D] 1,000 unit PO DAILY Multivit-Min/Folic Acid/Vit K1 [Multi For Her 50 Plus Softgel] 1 each PO DAILY Atorvastatin [Lipitor] 40 mg PO DAILY Levothyroxine Sodium 112 mcg PO QAM Fenofibrate Nanocrystallized [Fenofibrate] 145 mg PO DAILY Albuterol Sulfate [Ventolin Hfa] 2 puff IH Q6H PRN PRN Reason: Shortness Of Breath Nitroglycerin [Nitrostat] 0.4 mg PO AD PRN PRN Reason: Chest Pain Furosemide [Lasix] 20 mg PO DAILY Home Medications: Clopidogrel [Plavix] 75 mg PO DAILY 01/12/16 [History] Digoxin [Lanoxin] 0.125 mg PO DAILY 01/12/16 [History] Metoprolol Tartrate [Lopressor] 50 mg PO BID 01/12/16 [History] carBAMazepine [Tegretol] 200 mg PO BID 01/12/16 [History] Cholecalciferol (D-3) [Vitamin D] 1,000 unit PO DAILY 08/10/16 [History] Multivit-Min/Folic Acid/Vit K1 [Multi For Her 50 Plus Softgel] 1 each PO DAILY 08/10/16 [History] Atorvastatin [Lipitor] 40 mg PO DAILY 10/03/18 [History] Albuterol Sulfate [Ventolin Hfa] 2 puff IH Q6H PRN 02/18/19 [History] Fenofibrate Nanocrystallized [Fenofibrate] 145 mg PO DAILY 02/18/19 [History] Levothyroxine Sodium 112 mcg PO QAM 02/18/19 [History] Nitroglycerin [Nitrostat] 0.4 mg PO AD PRN 02/18/19 [History] Furosemide [Lasix] 20 mg PO DAILY 03/02/19 [History] Allergies/Adverse Reactions: Allergy/AdvReac Type Severity Reaction Status Date / Time Amoxicillin Allergy Hives Verified 10/03/18 19:36 phenytoin [From Dilantin] Allergy Hives Verified 10/03/18 19:36 Sulfa (Sulfonamide Allergy See Verified 10/03/18 19:36 Antibiotics) Comments vancomycin Allergy Hives Verified 10/03/18 19:36 Date of admission: 03/02/19 06:29 Primary care physician: Kerry Ordaz CNP Consults: 03/02/19 14:35 Consult to Gastroenterology [CONS] Routine Consulting Provider: Gastroenterology Caitlyn Reason for Consult: Abnormal LFTs; Time Notified: 14:36 Call Completed: Yes Discharging clinician: Holly Rodas Anticipated date of discharge: 03/03/19 - Constitutional Vitals: Temp Pulse Resp BP Pulse Ox 97.3 F L 91 24 135/82 93 03/03/19 06:55 03/03/19 06:55 03/03/19 06:55 03/03/19 06:55 03/03/19 06:55 Exam: General: AAO x 1, somnolent, arousable to verbal stimuli, obese HEENT: EOMI, PERRLA, NC/AT, no scleral icterus Respiratory: decreased breath sounds, no wheezing, no rales Cardiovascular: Regular, Rate, Rhythm, No murmurs GI: Soft, Non tender, non distended, normal bowel sounds Ext: No edema, no tenderness, positive pulses Neuro: AAO x 1 Rest of the clinical exam is noncontributory - Patient Status Disposition: Transfer Critical Access Hosp Condition: Good - Discharge Instructions Follow Up With: Kerry Ordaz CNP [Primary Care Provider] - Forms: ED Satisfaction Letter
[2019-03-03 11:16] LABS: Albumin 3.6 g/dL (3.5-5.7); Albumin/Globulin Ratio 1.3 (1.1-2.2); Bilirubin,Total 0.9 mg/dL (0.3-1.0); Calcium 8.3 mg/dL (8.6-10.3); Globulin 2.7 g/dL (2.4-3.5); Magnesium 1.9 mg/dL (1.6-2.6); Phosphorous 4.4 mg/dL (2.7-4.5); Potassium 4.2 mEq/L (3.5-5.1); Total Protein 6.3 g/dL (6.4-8.9)
[2019-03-03 11:26] LABS: Basophils # 0.1 K/mcL (0.0-0.2); Basophils % 0.4 %; Hematocrit 40.5 % (35.3-44.9); Hemoglobin 12.4 g/dL (11.5-15.4); Immature Granulocytes % 1.1 % (0-4); Lymphocytes # 0.9 K/mcL (0.6-4.6); Lymphocytes % 6.7 %; Mean Corpuscular HGB Conc 30.6 g/dL (31.6-35.5); Mean Corpuscular Hemoglobin 30.1 pg (28.0-33.3); Mean Corpuscular Volume 98.3 fL (83.0-100.0); Mean Platelet Volume 10.1 fL (9.4-12.4); Monocytes # 1.7 K/mcL (0.0-1.3); Monocytes % 12.5 %; Neutrophils # 11.1 K/mcL (1.6-8.9); Nucleated Red Blood Cells 0.1 /100 WBC (0); Platelet Count 136 K/mcL (140-400); Red Blood Count 4.12 M/mcL (3.82-4.97); Red Cell Distribution Width 16.7 % (11.5-14.5); Segmented Neutrophils % 79.3 %
[2019-03-03 11:27] VITALS: BP 114/68
--- NOTE | 2019-03-03 11:56 | Gastroenterology Consult Note ---
<Clari Patton - Last Filed: 03/03/19 11:52> Date of Encounter: 03/03/19 Time of Encounter: 08:30 - Assessment and plan (1) Acute metabolic encephalopathy Status: Acute Assessment and plan: Aute onset liver failure, hepatitis is negative, US shows no sign of cirrhosis, no history of alcohol use. Likely due to shock liver due and sepsis. Spoke with pts daughter and advised supportive care. Spoke with Dr Mahoney who recommended transfer. (2) Shock liver Status: Acute (3) Afib Status: Chronic Qualifiers: Atrial fibrillation type: chronic Qualified Code(s): I48.2 - Chronic atrial fibrillation (4) Sepsis Status: Acute Qualifiers: Sepsis type: sepsis due to unspecified organism Qualified Code(s): A41.9 - Sepsis, unspecified organism - Time Spent With Patient Total time spent is greater than 50% in coordination of care (as documented) at patient's floor/unit and/or counseling patient: GI History of Present Illness - Data of Consult Patient: new to practice Consult date: 03/03/19 Requesting Physician: Velasquez Azevedo MD - Consult Narrative Reason for consult: abnormal LFTs History of present illness: 84-year-old female with past medical history of history of Atrial fibrillation rate that is controlled on metoprolol and digoxin, intracranial hemorrhage, CAD on Plavix, Pulmonary hypertension, Hypothyroidism on levothyroxine and Hyperlipidemia. She was discharged from this hospital 6 days ago with diagnosis of UTI and was brought by her family for worsening confusion. the family stated that the patient is absolutely independent and functional at baseline, however after her discharge from the hospital, her clinical condition continued to detect to deteriorate, and she is hardly out of bed due to confusion and somnolence. She currently opens her eyes and states she is "so tired from working all night long". Oriented to person only. The patient couldn't provide any history due to her mental status, most the history was obtained from the family and medical record. Ultrasound of the abdomen showed normal liver, no gallstones, possible small amount of pericholecystic fluid. CBD is normal. Platelets 135, PTT 27.1, INR 2.4, creatinine 1.27, total bili 0.8, AST greater than 3000, ALT greater than 5000. Alkaline phosphatase 116. Ammonia 63, troponin 0.08. Lactic acid was 7.1. Past Med Surg Social Fam HX - Past Medical History Medical history: atrial fibrillation, cardiomyopathy, coronary artery disease, hyperlipidemia, hypertension, myocardial infarction, TIA, other Additional medical history: LIPOMA. ANEMIA. SKIN CANCER Psychiatric history: no psych history - Past Surgical History Surgical History: coronary bypass (CABG), pacemaker/AICD, thyroidectomy - Social History Smoking Status: Former smoker Smokeless Tobacco Status: No Alcohol use: none Drug use: none - Family History Brother Living Status: Still Living Hx Family Cardiac Disorders: Yes Son Living Status: Still Living Hx Family Cardiac Disorders: Yes Mother Hx Family Cardiac Disorders: Yes (CAD, Bypass, HTN, [place]) Hx Family Respiratory Disorders: No Hx Family Cancer: No Hx Family GI Disorders: No Hx Family Endocrine Disorder: No Hx Family Neuromuscular Disorders: No Hx Family Neurologic Disorders: Yes (Dementia) Hx Family HEENT Disorders: No Hx Family Autoimmune Disorders: No ROS unobtainable: due to mental status - Constitutional Vitals: Temp Pulse Resp BP Pulse Ox 97.5 F L 83 18 114/68 94 03/03/19 11:25 03/03/19 11:25 03/03/19 11:25 03/03/19 11:25 03/03/19 11:25 Exam: CONSTITUTIONAL:drowsy, restless in bed.HEAD:normocephalic.EYES:no jaundice.NECK:no obvious swelling.HEART:irregular rate and rhythm, no murmurs.LUNGS:bilateral poor air entry.ABDOMEN:non distended, soft, non tander, no masses pulpable, no organomegaly.RECTAL EXAM:Deferred.EXTREMITIES:no clubbing, cyanosis,trace BLE edema.SKIN:no stigmata of chronic liver disease, no pallor.NEUROLOGIC:no obvious focal defect. Results - Labs CBC & Chem 7: 03/03/19 11:12 03/03/19 09:55 Labs: Last Result 03/02/19 03/03/19 03/03/19 22:10 01:07 09:55 Calcium 8.3 L Troponin I 0.08 H* Triglycerides 109 Entire Visit 03/03/19 03/03/19 03/03/19 01:07 09:55 09:55 Hgb Hct PT 27.1 H Total Bilirubin 0.9 AST 1339 H ALT 770 H Ammonia 100 H 03/03/19 11:12 Hgb 12.4 Hct 40.5 PT Total Bilirubin AST ALT Ammonia - ABG ABG results: PT/INR, D-dimer PT 27.1 Seconds (9.4-12.1) H 03/03/19 01:07 - Impressions Impressions Liver Ultrasound 03/02/19 07:02 IMPRESSION: 1. No gallstones visualized. 2. Possible small amount of pericholecystic fluid without evidence for positive sonographic Dalton's sign or gallbladder wall thickening is of questionable clinical significance 3. Unremarkable appearing right kidney D/ / Marty Shanks MD / Marty Shanks MD Interpreting Provider: Marty Shanks MD Consult Discharge Plan - Plan Referrals: Kerry Ordaz [facility] [Primary Care Provider] - <Kenyetta Mahoneyed - Last Filed: 03/03/19 17:46> Date of Encounter: 03/03/19 Time of Encounter: 15:00 - Time Spent With Patient Total time spent is greater than 50% in coordination of care (as documented) at patient's floor/unit and/or counseling patient: GI History of Present Illness - Data of Consult Requesting Physician: Velasquez Azevedo MD - Consult Narrative History of present illness: Ms. Shultz is a 84 year old female - Constitutional Vitals: Temp Pulse Resp BP Pulse Ox 97.5 F L 83 18 114/68 94 03/03/19 11:25 03/03/19 11:25 03/03/19 11:25 03/03/19 11:25 03/03/19 11:25 Results - Labs CBC & Chem 7: 03/03/19 11:12 03/03/19 09:55 Labs: Last Result 03/03/19 09:55 Calcium 8.3 L Entire Visit 03/03/19 03/03/19 03/03/19 09:55 09:55 11:12 Hgb 12.4 Hct 40.5 Total Bilirubin 0.9 AST 1339 H ALT 770 H Ammonia 100 H - ABG ABG results: PT/INR, D-dimer PT 27.1 Seconds (9.4-12.1) H 03/03/19 01:07 - Attending Attestation I have personally performed a face to face evaluation on this patient. I have reviewed and agree with the care plan. History and Exam by me shows: Patient seen at the bedside C is still very confused. Examination: Patient confused but abdomen is benign. Assessment: Patient with abnormal LFTs with encephalopathy and high INR consistent with acute liver failure. Recommendation: Because of worsening encephalopathy especially being on lactulose recommend transferring to [place]
--- NOTE | 2019-03-03 22:56 | Electrocardiograph Report ---
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
== END 2019-03-03 16:00 | disposition critical access hospital (66) ==
LOC: EMEROOARM 23:26 → 2ANU 23:26
PROVIDERS: ADMIT Internal Medicine; ATTEND Internal Medicine